=== PATIENT | female | born 1945 | race Caucasian/White ===

== ENCOUNTER 2020-02-06 16:49 | Emergency (ER) | payer MEDICARE, SELFPAY ==
--- NOTE | ~2020-02-06 | XR_ITS ---
XR ankle LT 2V, XR foot LT 2V 02/06/2020 17:46 Indication: Left foot and ankle pain after injury Procedure: 2 views left ankle and 2 views left foot Comparison: No prior studies for comparison. Findings: There is a transverse distal metaphyseal fracture of the tibia with mild dorsal-medial disp lacement and dorsal angulation. There is a distal fibular metaphyseal fracture. Generalized osteopeni a. Talar dome is normal. There is an age-indeterminate fracture of the fourth metatarsal neck. [place] joint intact. Impression: 1: Transverse mildly displaced and angulated fractures of the distal tibial and fibular metaphysis. 2: Nondisplaced age-indeterminate fracture left fourth metatarsal neck. Reviewed, dictated and finalized at location A. Impression: 1: Transverse mildly displaced and angulated fractures of the distal tibial and fibular metaphysis. 2: Nondisplaced age-indeterminate fracture left fourth metatarsal neck. Impression: 1: Transverse mildly displaced and angulated fractures of the distal tibial and fibular metaphysis. 2: Nondisplaced age-indeterminate fracture left fourth metatarsal neck.
[2020-02-06 17:10] VITALS: BP 138/82; PULSE 100; RESP 20; TEMP 36.8; O2SAT 99
[2020-02-06] MEDS: KETOROLAC (*BKC) 60 MG/2 ML VIAL IM (17:31)
--- NOTE | 2020-02-06 18:01 | ED.LOWEXIN ---
HPI - Extremity Injury (Lower) General Chief Complaint: Extremity Injury, Lower Stated Complaint: hurt L foot Source: patient and family Mode of arrival: wheelchair Limitations: no limitations History of Present Illness HPI Narrative: this is a 74-year-old female presents with some left foot and ankle injury that occurred approximately 3 months ago she was visiting family in [place], has been persistently in pain rates her pain about a 7/10 has reduced range of motion in her left lower leg ankle and foot with swelling and point tenderness in the lateral left malleolus and anterior left foot with some palpation and some mild swelling. Injury: Left: ankle ( Swelling and injury) and foot ( swelling and injury) Type of Injury: inversion Place: home Severity: moderate Exacerbating factors: weight bearing Context: fall Other symptoms: none Related Data Home Medications Medication Instructions Recorded Confirmed gabapentin 100 mg PO TID 02/06/20 02/06/20 hydrocodone-acetaminophen 1 tablet PO TID PRN 02/06/20 02/06/20 levothyroxine 75 mcg PO DAILY 02/06/20 02/06/20 tramadol 50 mg PO QID PRN 02/06/20 02/06/20 Allergies Allergy/AdvReac Type Severity Reaction Status Date / Time codeine Allergy Mild THROAT Unverified 07/02/19 14:17 CLOSES Sulfa (Sulfonamide Allergy Mild Unverified 07/02/19 14:17 Antibiotics) Review of Systems Review of Systems: All systems reviewed & are unremarkable except as noted in HPI and below PMFSH Past Medical History Medical History Anxiety COPD (chronic obstructive pulmonary disease) Depression Exam Const: General: no acute distress and alert Orientation/consciousness: patient oriented x3 HENMT: Head: normal to inspection Eyes: Conjunctivae: conjunctivae normal Pupils: Equal, round and reactive pupils present Neck: Neck: normal visual inspection, no lymphadenopathy and no meningeal signs Chest: Chest palpation & inspection: normal inspection of the chest Resp: Effort & Inspection: normal respiratory effort Cardio: Rate: regular rate Rhythm: regular rhythm GI: GI Palp: Yes Soft to palpation Back/Spine/Pelvis: Back: no CVA tenderness Skin: General skin exam: normal color Rashes: no rashes Neuro: General: patient oriented x3, moves all extremities and no meningeal signs Extrem: Other: Pain in the left lateral malleolus and anterior foot with some swelling decreased range of motion secondary to pain inflammation. Psych: Appearance: disheveled Mental Status: mental status grossly normal Course Course Emergency Course: Patient received 60 of Toradol and pain had improved, and x-ray showed the fractures identified on x-ray and advised patient and her daughter to establish with local primary care physician for referral to orthopedic doctors. Critical Care Time Critical Care Time Critical Care Time: No Discharge Plan Discharge Clinical Impression: Ankle fracture, left Qualifiers: Encounter type: initial encounter Fracture type: closed Qualified Code(s): S82.892A - Other fracture of left lower leg, initial encounter for closed fracture Foot fracture, left Qualifiers: Encounter type: initial encounter Fracture type: closed Qualified Code(s): S92.902A - Unspecified fracture of left foot, initial encounter for closed fracture Patient Disposition: Home, Self-Care Condition: Stable Instructions: Antibiotic Form, Foot Fracture in Adults (ED), Ankle Fracture (ED) Additional Instructions: take her prescribed pain medication as needed, follow-up with primary care physician for referral to orthopedics for further evaluation and treatment. Prescriptions: No Action hydrocodone-acetaminophen 10-325 mg tablet 1 tablet PO TID PRN (Reason: Pain) RF: 0 tramadol 50 mg tablet 50 mg PO QID PRN (Reason: Pain) RF: 0 levothyroxine 75 mcg tablet 75 mcg PO DAILY RF: 0 gabapentin 100 mg capsule
[2020-02-06 18:20] VITALS: RESP 17
== END 2020-02-06 18:20 | disposition home or self-care (01) ==
PROVIDERS: Emergency Provider Emergency Medicine
DX: S82.892A Other fracture of left lower leg, initial encounter for closed fracture (principal); S92.902A Unspecified fracture of left foot, initial encounter for closed fracture
CPT/HCPCS: 73600; 73620; 96372; 99282; 99284; J1885; L2112

== ENCOUNTER 2020-05-27 14:48 | Outpatient (CLI) | payer MEDICARE, SELFPAY ==
[2020-05-27 15:19] LABS: Hematocrit 34.9 % (35.0-42.0); Hemoglobin 11.5 g/dL (11.7-13.8); Mean Corpuscular Hemoglobin 34.3 pg (27.0-31.0); Mean Corpuscular Volume 104.2 fL (78.0-102.0); Mean Platelet Volume 8.8 fl (9.2-11.8); Platelet Count Result 484 K/mm3 (150-420); Red Blood Count 3.35 M/mm3 (4.20-5.40); Red Cell Distribution Width 12.2 % (11.6-14.4); White Blood Count 10.4 K/mm3 (4.8-10.8)
[2020-05-27 16:30] LABS: Alanine Aminotransferase 15 U/L (14-59); Albumin Level 3.7 g/dL (3.4-5.0); Alkaline Phosphatase 98 U/L (46-116); Anion Gap 10 mmol/L (8-16); Aspartate Amino Transferase 14 U/L (15-37); Bilirubin,Total 0.3 mg/dL (0.00-1.00); Blood Urea Nitrogen 10 mg/dL (7-18); Calcium 9.4 mg/dL (8.5-10.1); Carbon Dioxide 27 mmol/L (21-32); Chloride 99 mmol/L (98-108); Estimated Glomerular Filt Rate > 60; Glucose 86 mg/dL (70-99); Osmolality Calculated 280 mOsm/kg (285-295); Potassium 4.1 mmol/L (3.5-5.1); Sodium 136 mmol/L (136-145); Total Protein 7.9 g/dL (6.4-8.2)
[2020-05-27 16:31] LABS: Thyroid Stimulating Hormone Reflex 0.07 u/IU/mL (0.36-3.74)
[2020-05-27 16:32] LABS: Free T4 Free Thyroxine Reflex 1.43 ng/dL (0.76-1.46)
[2020-05-30 19:13] LABS: H pylori, Urea Breath NOT DETECTED (NOT DETECTED)
== END 2020-05-27 14:49 | disposition home or self-care (01) ==
LOC: CHSLAB 14:50
PROVIDERS: PCP Family Medicine; Visit Provider Family Medicine
DX: J44.9 Chronic obstructive pulmonary disease, unspecified (principal); F41.9 Anxiety disorder, unspecified; B35.1 Tinea unguium; K21.9 Gastro-esophageal reflux disease without esophagitis
CPT/HCPCS: 36415; 80053; 83013; 84439; 84443; 85027

== ENCOUNTER 2020-07-18 16:09 | Outpatient (CLI) | payer MEDICARE, SELFPAY ==
[2020-07-18 17:07] LABS: Alanine Aminotransferase 13 U/L (14-59); Albumin Level 4.2 g/dL (3.4-5.0); Alkaline Phosphatase 87 U/L (46-116); Anion Gap 9 mmol/L (8-16); Aspartate Amino Transferase 16 U/L (15-37); Bilirubin,Total 0.4 mg/dL (0.00-1.00); Blood Urea Nitrogen 8 mg/dL (7-18); Calcium 9.9 mg/dL (8.5-10.1); Carbon Dioxide 28 mmol/L (21-32); Chloride 96 mmol/L (98-108); Estimated Glomerular Filt Rate > 60; Glucose 90 mg/dL (70-99); Osmolality Calculated 274 mOsm/kg (285-295); Potassium 4.9 mmol/L (3.5-5.1); Sodium 133 mmol/L (136-145); Total Protein 8.2 g/dL (6.4-8.2)
== END 2020-07-18 16:10 | disposition home or self-care (01) ==
LOC: CHSLAB 16:11
PROVIDERS: PCP Family Medicine; Visit Provider Family Medicine
DX: B35.1 Tinea unguium (principal)
CPT/HCPCS: 36415; 80053

== ENCOUNTER 2020-08-17 13:42 | Outpatient (CLI) | payer MEDICARE, SELFPAY ==
--- NOTE | ~2020-08-17 | XR_ITS ---
EXAMINATION: XR hip RT min 2V DATE: 08/17/2020 14:31 INDICATION: Right hip pain. TECHNIQUE: 2 views of right hip were obtained. COMPARISON: Pelvis radiographs 08/24/2011 FINDINGS: Bone alignment is normal. No fracture. There is mild right hip osteoarthritis. There is sev ere lumbar spondylosis. IMPRESSION: 1. Mild right hip osteoarthritis. Reviewed, dictated and finalized at location B. ATOR CLEANER
--- NOTE | ~2020-08-17 | XR_ITS ---
EXAMINATION: XR lumbar spine 2-3V DATE: 08/17/2020 14:31 INDICATION: Scoliosis, back pain TECHNIQUE: Anteroposterior and lateral views of the lumbar spine, and cone-down lateral view of the l umbosacral junction were obtained. COMPARISON: 07/08/2013 FINDINGS: There is unchanged thoracolumbar levoscoliosis. Bone alignment appears normal. There is com plete loss of intervertebral disc space height at L2-3 and L3-4 and severe loss of intervertebral dis c space height throughout the remainder of the lumbar spine. There is mild asymmetric loss of vertebr al body height on the right at L2-3 and L3-4. No fracture is identified. The bones are osteopenic. Th ere is calcified atherosclerosis of the aorta and many of the other arteries. Orthopedic hardware is present in the proximal left femur. IMPRESSION: 1. Thoracolumbar levoscoliosis and severe lumbar spondylosis without acute findings or significant in terval change. Reviewed, dictated and finalized at location A. OP JAVA DEVELOPER IMPRESSION: 1. Thoracolumbar levoscoliosis and severe lumbar spondylosis without acute find ings or significant interval change.
--- NOTE | ~2020-08-17 | XR_ITS ---
EXAMINATION: XR thoracic spine 3V DATE: 08/17/2020 14:30 INDICATION: Scoliosis and back pain TECHNIQUE: AP, lateral and lateral swimmer's views of the thoracic spine were obtained. COMPARISON: None. FINDINGS: There are 65 degrees of thoracolumbar levoscoliosis. The thoracic vertebral body heights ar e maintained. There is loss of intervertebral disc space height in the lower thoracic spine. No fract ure is identified. Small degenerative osteophytes project from the anterior endplates of multiple ramesh tebral bodies. There is calcified atherosclerosis. Severe cervical spondylosis is noted. The lungs ar e free of acute opacities. The cardiomediastinal silhouette is normal. IMPRESSION: 1. Thoracolumbar levoscoliosis and mild thoracic spondylosis without acute findings. Reviewed, dictated and finalized at location A. CAL PRACTICE ADMINISTRATOR IMPRESSION: 1. Thoracolumbar levoscoliosis and mild thoracic spondylosis without acute find ings.
== END 2020-08-17 13:43 | disposition home or self-care (01) ==
LOC: CHSIMG 13:46
PROVIDERS: PCP Family Medicine; Visit Provider Nurse Practitioner Adult Health
DX: M25.551 Pain in right hip (principal); M41.86 Other forms of scoliosis, lumbar region
CPT/HCPCS: 72072; 72100; 73502

== ENCOUNTER 2021-12-02 15:59 | Emergency (ER) | payer MEDICARE, MEDICAID, SELFPAY ==
[2021-12-02] VITALS (7 sets, daily range): BP systolic 102–132; BP diastolic 77–94; PULSE 95–120; RESP 18–20; TEMP 36.3–36.7; O2SAT 94–100
--- NOTE | ~2021-12-02 | CT_ITS ---
EXAMINATION: CT chest abdomen pelvis wo con DATE: 12/02/2021 18:12 INDICATION: Suspected GI bleeding, coffee-ground emesis TECHNIQUE: Computed tomography (CT) of the chest abdomen and pelvis was performed without intravenous contrast. Automated exposure control and iterative reconstruction technique were employed. The dose- length product was 220.62 mGy-cm. COMPARISON: None FINDINGS: Chest: Thoracic aorta: Mild ectasia. Severe atherosclerotic calcification. Lung parenchyma and airways: Apical pleural scarring. Emphysematous change. Ill-defined groundglass a nd linear opacities in the anterior left upper lobe. Thoracic inlet, axillae and chest wall: Unremarkable. Mediastinum: Large hiatal hernia. Heart and pericardium: Unremarkable. Coronary artery calcifications: Heavy. Pleura: No mass or fluid. Abdomen and pelvis: Liver: Normal. Biliary/Gallbladder: Gallbladder is absent. No bile duct dilation. Spleen: Splenic atrophy. Pancreas: No mass or duct dilation. Mild atrophy. Adrenals:No mass. Kidneys: No mass, stone, or hydronephrosis. GI tract: NG tube tip and side port terminating in the stomach. No small or large bowel dilation. Shonda endix not visualized. Mesentery/Peritoneum: No ascites, mass, or free air. Retroperitoneum: No mass. Extensive severe abdominal arterial atherosclerosis. 3.2 cm saccular infrar enal abdominal aortic aneurysm. Pelvis: Uterus is absent or atrophic. Normal bladder.. Soft Tissues: Soft tissues and body wall unremarkable. Bones: Severe osteopenia. Severe thoracolumbar scoliosis. Uncomplicated appearing partially visualiz ed left proximal femoral fixation hardware. IMPRESSION: Ill-defined infectious/inflammatory changes in the right upper lobe. No other acute process detected in the chest, abdomen, or pelvis. Numerous chronic findings are detailed above. Reviewed, dictated and finalized at location K. IMPRESSION: Ill-defined infectious/inflammatory changes in the right upper lobe. No other a cute process detected in the chest, abdomen, or pelvis. Numerous chronic findin gs are detailed above.
--- NOTE | 2021-12-02 16:18 | ED.ABDPAIN ---
HPI - Abdominal Pain General Chief Complaint: Abdominal Pain Stated Complaint: vomiting, pain hips/legs Time Seen by Provider: 12/02/21 16:19 Source: patient, family and EMS Mode of arrival: EMS Limitations: no limitations, physical limitation and clinical condition History of Present Illness HPI narrative: this is a 76-year-old female that presents via AMS with some increased weakness and lower extremity pain that she is having bilateral hip pain uses a walker to ambulate, but has been having increased weakness over the last 2 to 3 days. The patient has been having nausea vomiting and according to patient and family, family states that there has been some dark coffee-ground looking emesis, and EMS mentioned that they they saw some coffee-ground emesis as well. The patient denies having any chest pain or shortness of breath, patient has a history of peptic ulcer disease with history of a GI bleed in the past currently has a peripheral neuropathy and having lower extremity pain that she currently takes gabapentin for neuropathy. Family states that there has been increasing weakness over the last 2 to 3 days, with no chest pain no shortness of breath no fever chills no diarrhea constipation. MD elicited complaint: abdominal pain and flank pain Pertinent past history: gastrointestinal bleeding Onset (ago): day(s) Pain Consistency: constant Location: epigastric Severity: moderate Quality: aching Radiation: epigastric Exacerbating factors: vomiting Relieving factors: nothing Associated symptoms: nausea and vomiting Treatments prior to arrival: prescription analgesics Related Data Home Medications Medication Instructions Recorded Confirmed hydrocodone 10 mg-acetaminophen 1 tablet PO Q8H PRN 03/30/20 03/30/20 325 mg tablet gabapentin 100 mg PO QID 12/02/21 12/02/21 Allergies Allergy/AdvReac Type Severity Reaction Status Date / Time codeine Allergy Mild THROAT Verified 07/18/20 12:16 CLOSES Sulfa (Sulfonamide Allergy Unknown Unknown Verified 07/18/20 12:16 Antibiotics) Review of Systems Review of Systems: All systems reviewed & are unremarkable except as noted in HPI and below PMFSH Past Medical History Medical History Anxiety COPD (chronic obstructive pulmonary disease) GERD (gastroesophageal reflux disease) Hypothyroidism Onychomycosis Osteoporosis Urge incontinence Surgical History Surgical History History of cholecystectomy History of hysterectomy History of ovarian resection Hx of tonsillectomy Social History Social History Smoking packs per day: 0.5 Smoking cigarettes per day: 10.0 Years smoked: 60 Smoking pack-years: 30.00 Smoking status: Current every day smoker Tobacco type: cigarettes Exam Const: General: no acute distress, alert and ill appearing Orientation/consciousness: patient oriented x3 HENMT: Head: normal to inspection Eyes: Conjunctivae: conjunctivae normal Pupils: Equal, round and reactive pupils present Neck: Neck: normal visual inspection, no lymphadenopathy and no meningeal signs Chest: Chest palpation & inspection: normal inspection of the chest Resp: Effort & Inspection: normal respiratory effort Auscultation: diminished lung sounds Cardio: Rate: regular rate Rhythm: regular rhythm GI: GI Palp: Yes Soft to palpation and Yes Tenderness to palpation present (GI) ( Epigastric area) : General: Yes no CVA tenderness Urinary Catheter: Urinary Catheter: patent and draining Back/Spine/Pelvis: Back: no CVA tenderness Skin: General skin exam: normal color Rashes: no rashes Neuro: General: patient oriented x3, moves all extremities, no meningeal signs and no focal motor deficits Extrem: General: normal to inspection and no pedal edema Psych: Mental Status: mental status grossly
[2021-12-02] MEDS: ONDANSETRON INJ 4 MG/2 ML VIAL IV PUSH (16:48)
[2021-12-02] MEDS: MORPHINE SULFATE (*CRX) 2 MG/ML INJ IV PUSH ×2 (16:48→22:57)
[2021-12-02] MEDS: SODIUM CHLORIDE 0.9% IV 1,000 ML 999 ML IV CONT ×2 (16:50→17:36)
--- NOTE | 2021-12-02 17:01 | PC.NURSE ---
pt declined need for urination at this time,
[2021-12-02 17:02] LABS: Hematocrit 32.7 % (35.0-42.0); Hemoglobin 10.6 g/dL (11.7-13.8); Mean Corpuscular HGB Conc 32.4 g/dL (32.0-36.0); Mean Corpuscular Hemoglobin 33.5 pg (27.0-31.0); Mean Corpuscular Volume 103.5 fL (78.0-102.0); Mean Platelet Volume 9.5 fl (9.2-11.8); Platelet Count Result 456 K/mm3 (150-420); Red Blood Count 3.16 M/mm3 (4.20-5.40); Red Cell Distribution Width 12.8 % (11.6-14.4)
[2021-12-02 17:16] LABS: CRP 10.3 mg/dL (0.0-0.9)
[2021-12-02 17:18] LABS: Alanine Aminotransferase 17 U/L (14-59); Albumin Level 2.6 g/dL (3.4-5.0); Alkaline Phosphatase 102 U/L (46-116); Anion Gap 19 mmol/L (8-16); Aspartate Amino Transferase 30 U/L (15-37); Bilirubin,Total 0.3 mg/dL (0.00-1.00); Blood Urea Nitrogen 48 mg/dL (7-18); Calcium 9.2 mg/dL (8.5-10.1); Carbon Dioxide 23 mmol/L (21-32); Chloride 92 mmol/L (98-108); Estimated Glomerular Filt Rate 21; Glucose 159 mg/dL (70-99); INR 1.5; Lipase 49 U/L (73-393); Magnesium 1.7 mg/dL (1.8-2.4); Osmolality Calculated 293 mOsm/kg (285-295); Partial Thromboplastin Time 28.5 SEC (23.90-30.70); Prothrombin Time 15.5 Seconds (9.50-12.10); Sodium 134 mmol/L (136-145); Total Protein 7.4 g/dL (6.4-8.2)
--- NOTE | 2021-12-02 17:18 | ECG_ITS ---
Measurements Intervals [place] Rate: 117 P: 120 [place]: 135 QRS: 109 QRSD: 78 T: 118 QT: 307 QTc: 429 Interpretive Statements SINUS OR ECTOPIC ATRIAL TACHYCARDIA FREQUENT ATRIAL PREMATURE COMPLEXES RIGHT AXIS DEVIATION BORDERLINE ST-T WAVE ABNORMALITY- INFERIOR LEADS BASELINE ARTIFACT- I, II, III, AVR, AVL, AVF, V1-V6 ABNORMAL ECG Electronically Signed On 12-02-2021 19:48:08 CDT by Fitz Stone D.O.
[2021-12-02 17:24] LABS: Lactic Acid Reflex 9.7 mmol/L (0.4-2.0)
[2021-12-02 17:26] LABS: Ammonia < 10 umol/L (11-32)
[2021-12-02] MEDS: PANTOPRAZOLE SODIUM IV 40 MG VIAL 80 MG IV PUSH (17:34)
[2021-12-02 17:39] LABS: White Blood Count 22.9 K/mm3 (4.8-10.8)
[2021-12-02 17:40] LABS: Band Neutrophils Percent 3 % (0-6); Basophils Percent Manual 0 % (0-1); Eosinophils Percent Manual 0 % (1-6); Lymphocytes Absolute Manual 2.97 K/mm3 (1.1-4.5); Lymphocytes Percent Manual 13 % (18-44); Metamyelocytes Percent 1 %; Monocytes Percent Manual 7 % (3-9); Neutrophils Absolute Manual 18.09 K/mm3 (1.7-7.2); Neutrophils Percent Manual 76 % (46-73); Total Cells Counted 100
[2021-12-02 17:41] LABS: Platelet Clumps Present; Platelet Estimate Adequate (Adequate)
[2021-12-02 17:42] LABS: SARS-CoV-2 Ag Negative (Negative)
--- NOTE | 2021-12-02 18:59 | PC.NURSE ---
report to CHRIS Francis. no questions or concerns, pt resting with family at bedside, call abbott in reach.
[2021-12-02 19:23] LABS: Gastric Negative Control Negative; Gastric Positive Control Positive; Occult Blood Gastric Fluid Positive; pH Gastric Fluid 3 (1-8)
--- NOTE | 2021-12-02 19:45 | PC.NURSE ---
Dr. Krishnamurthy spoke to Gwyn PETERSON, Dr. Monroe, for a possible admission. Gwyn turnerchar house supervisor called and stated the Dr. Monroe accepted the pt and waiting to talk to the hospitalist for final acceptance and bed number. Gwyn char house supervisor states the hospitalist would be calling [facility] staff for report.
[2021-12-02 19:53] LABS: Reflex Lactic Acid Yes or No Add Lactic
== END 2021-12-02 23:18 | disposition short-term general hospital (02) ==
PROVIDERS: Emergency Provider Emergency Medicine; PCP Family Medicine
DX: K92.2 Gastrointestinal hemorrhage, unspecified (principal); Z20.822 Contact with and (suspected) exposure to COVID-19; J44.9 Chronic obstructive pulmonary disease, unspecified; K21.9 Gastro-esophageal reflux disease without esophagitis; E03.9 Hypothyroidism, unspecified; M81.0 Age-related osteoporosis without current pathological fracture; F17.200 Nicotine dependence, unspecified, uncomplicated
CPT/HCPCS: 36415; 71250; 74176; 80053; 82140; 82271; 83605; 83690; 83735; 83986; 85025; 85610; 85730; 86140; 86850; 86900; 86901; 87040; 87426; 93005; 96361; 96365; 96375; 99285; C9113; C9803; J2270; J2405; J2543; J7030

== ENCOUNTER 2021-12-02 23:47 | Inpatient (IN) | payer MEDICARE, MEDICAID, SELFPAY ==
--- NOTE | ~2021-12-02 | CT_ITS ---
EXAMINATION: CTA LE RT DATE: 12/03/2021 04:28 INDICATION: Discoloration of the right lower extremity TECHNIQUE: Computed tomographic angiography (CTA) of right lower extremity was performed with 87 mL O mnipaque-300 intravenous contrast. The dose-length product (DLP) was 372.63 mGy-cm. Maximum intensity projection 3D-reconstructions of the arteries were created by the technologist on a separate worksta tion. Automated exposure control and iterative reconstruction technique were employed. COMPARISON: None. FINDINGS: There is calcified atherosclerosis with moderate stenosis of the bilateral common iliac art eries. There is severe stenosis with multifocal areas of occlusion in the internal iliac arteries. Th e right superficial femoral artery is occluded throughout much of its course with a few short segment s of flow and distal reconstitution near the knee. There is calcified atherosclerosis and severe sten osis of the popliteal artery. There is severe stenosis of the tibioperoneal trunk. There is severe st enosis of the anterior and posterior tibial arteries and peroneal artery with very few short segments of reconstituted flow. There is wall thickening of the urinary bladder. No pathologically enlarged pelvic lymph nodes are id entified. IMPRESSION: 1. 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 Vascular surgical evaluation is recommended. Reviewed, dictated and finalized at location A. IMPRESSION: 1. Severe vascular disease of the left lower extremity with very little flow de tectable by CT, particularly beyond the knee. Vascular surgical evaluation is r ecommended.
--- NOTE | ~2021-12-02 | US_ITS ---
EXAMINATION: US arterial ankle brachial ind DATE: 12/06/2021 11:59 INDICATION: Painful right lower extremity TECHNIQUE: Segmental pressures and plethysmographic and Doppler waveforms of the brachial and lower e xtremity arteries were obtained. COMPARISON: 12/03/2021 CTA lower extremity FINDINGS: Right and left brachial artery pressures of 148 mm Hg and 109 mm Hg, respectively, are discordant. Le ft subclavian, axillary or brachial artery stenosis or occlusion is suspected. The right ankle-brachial index (JORGE L) is 0.18 (normal >= 0.9-1.0). The right great toe-brachial index (TBI) is 0.10 (normal >= 0.65). Arterial Doppler waveforms abnormal low amplitude.. The left JORGE L is 0.50. The left TBI is 0.22. Arterial Doppler waveforms show amplitude monophasic. IMPRESSION: Discordant subclavian artery pressures suggesting left subclavian, axillary or brachial artery stenosis or occlusion Abnormally low JORGE L of 0.18 on the right, 0.50 on the left Abnormally low TBI of 0.10 on the right, 0.22 on the left Reviewed, dictated and finalized at Location A. Reviewed, dictated and finalized at location B.
--- NOTE | ~2021-12-02 | XR_ITS ---
EXAMINATION: XR chest 1V portable Exam Date/Time: 12/05/2021 16:20 CDT CLINICAL HISTORY: pneumonia Comparison: 07/08/2013. RESULT: Lines, tubes, and devices: None. Lungs and pleura: Senescent changes. Cardiomediastinal silhouette: Stable cardiomediastinal silhouette. Other: No acute osseous or upper abdominal finding. Severe osteopenia and thoracolumbar scoliosis. IMPRESSION: No acute cardiopulmonary process Reviewed, dictated and finalized at location K.
[2021-12-03] VITALS (12 sets, daily range): BP systolic 65–125; BP diastolic 42–87; PULSE 55–102; RESP 14–23; TEMP 36.5–37.5; O2SAT 93–100; BMI 19.0
--- NOTE | 2021-12-03 00:12 | ADMGEN ---
This patient, Hanna Rai, was admitted to 2 Medical Room 26001 @[id number]. Patient/family oriented to hospital policies and general routines including ID bracelet, bed and alarms, visiting hours, pain management, procedures, bathroom and other care routines, personal items, smoking policy, room service/diet, and visiting hours. Information on how to activate the Rapid Response Team has been discussed. Patient/Family are encouraged to report perceived risks to care and to ask questions if they do not understand what they are told or what they should do.
--- NOTE | 2021-12-03 00:25 | PM.IMHP ---
H&P: HPI History of Present Illness Date/Time: 12/03/21 00:25 Chief Complaint: Coffee-ground emesis Narrative: This is a 76-year-old female with past medical history significant for COPD/emphysema, hypothyroidism, gastroesophageal reflux disease. Patient comes transferred from outside hospital due to episode of coffee-ground emesis. According to medical records patient was brought for evaluation due to altered mental status, nausea, vomiting, diarrhea, coffee-ground emesis. Preliminary workup was significant for positive occult blood. Creatinine 2.2 BUN 48. The time of my visit patient was unable to give much history. Patient is being admitted for further evaluation management and treatment. Review of Systems Review of Systems: ROS unobtainable: Yes unobtainable due to mental status (Delirious) PMFSH Past Medical History Medical History Anxiety COPD (chronic obstructive pulmonary disease) GERD (gastroesophageal reflux disease) Hypothyroidism Onychomycosis Osteoporosis Urge incontinence Surgical History Surgical History History of cholecystectomy History of hysterectomy History of ovarian resection Hx of tonsillectomy Family History Family History (Updated 12/03/21 @ 00:17 by Augusta Rubalcava RN) Father Skin cancer Father Lung cancer Social History Social History Smoking packs per day: 0.5 Smoking cigarettes per day: 10.0 Years smoked: 12 Smoking pack-years: 6.00 Smoking status: Current every day smoker Tobacco type: cigarettes Alcohol intake: never Substance use: never Substance use type: does not use Spiritual care concerns: No Meds Home Medications and Allergies Home Medications Medication Instructions Recorded Confirmed Type omeprazole 40 mg capsule,delayed 40 mg PO DAILY #90 cap 09/09/20 12/03/21 Rx release gabapentin 100 mg PO QID 12/02/21 12/03/21 History levothyroxine 50 mcg PO DAILY 12/03/21 12/03/21 History lorazepam 0.5 mg PO TID PRN 12/03/21 12/03/21 History naloxegol [Movantik] 25 mg PO DAILY 12/03/21 12/03/21 History oxybutynin chloride 15 mg PO DAILY 12/03/21 12/03/21 History simvastatin 40 mg PO DAILY 12/03/21 12/03/21 History umeclidinium [Incruse Ellipta] 62.5 mcg INHALATION DAILY 12/03/21 12/03/21 History Allergies Allergy/AdvReac Type Severity Reaction Status Date / Time codeine Allergy Mild THROAT Verified 07/18/20 12:16 CLOSES Sulfa (Sulfonamide Allergy Unknown Unknown Verified 07/18/20 12:16 Antibiotics) Vital Signs Vital Signs - 24 hr 12/03/21 00:15 Temperature 99.4 F Pulse Rate 102 H Respiratory Rate 18 Blood Pressure 125/87 Pulse Oximetry 99 Exam Narrative: Laying in bed Const: General: comfortable, no acute distress, well developed, alert, awake and ill appearing chronically Nutritional Appearance: underweight Orientation/consciousness: oriented to person and Other orientation findings (Delirious) HENMT: Head: normocephalic, atraumatic and other (Bitemporal muscle wasting) Ears: hearing grossly normal bilaterally General nose exam: Normal external nose present Face and sinus: normal facial exam Mouth: Yes dry mucous membranes Eyes: General: appearance normal, both eyes and all related structures Alignment and Position: alignment normal Sclera: sclerae normal Pupils: Equal, round and reactive pupils present EOM: EOMs intact bilaterally Neck: Neck: normal visual inspection, full ROM, no lymphadenopathy, supple and no JVD Thyroid: thyroid normal Lymphatic: no lymphadenopathy noted Resp: Effort & Inspection: normal respiratory effort and able to speak in complete sentences Auscultation: clear to auscultation bilaterally, no crackles, no rales, no rhonchi and no wheezes Cardio: Jugular venous distension: no JVD Rate: regular rate Rhythm: regu
[2021-12-03] MEDS: DEXTROSE 5%/0.45% SOD CHL 1,000 ML 65 ML IV CONT ×2 (01:13→16:49)
[2021-12-03 02:21] LABS: Basophils Percent Auto 0.2 % (0.2-1.2); Hematocrit 28.8 % (37.0-47.0); Hemoglobin 9.8 g/dL (12.0-15.0); Immature Granulocyte Absolute 0.08 K/mm3 (0.00-0.031); Immature Granulocyte Percent A 0.4 % (0-0.5); Lymphocytes Absolute Auto 1.72 K/mm3 (0.9-3.2); Lymphocytes Percent Auto 9.3 % (18.3-44.2); Mean Corpuscular Hemoglobin 34.1 pg (26-34); Mean Corpuscular Volume 100.3 fl (80-100); Mean Platelet Volume 9.1 fl (7.4-10.4); Monocytes Absolute Auto 1.8 K/mm3 (0.1-0.6); Monocytes Percent Auto 9.9 % (2.6-8.5); Neutrophils Absolute Auto 14.9 K/mm3 (1.3-6.7); Neutrophils Percent Auto 80.2 % (45.5-73.1); Platelet Count Result 365 k/mm3 (150-375); Red Blood Count 2.87 M/mm3 (4.2-5.4); Red Cell Distribution Width 12.9 % (11.5-14.5); White Blood Count 18.6 K/mm3 (4.5-10.0)
[2021-12-03 02:30] LABS: Anion Gap 7 mmol/L (8-16); Blood Urea Nitrogen 43 mg/dL (7-17); Calcium 7.9 mg/dL (8.4-10.2); Carbon Dioxide 29 mmol/L (22-30); Chloride 99 mmol/L (98-107); Estimated Glomerular Filt Rate 44; Glucose 111 mg/dL (65-110); Lactic Acid Reflex 1.5 mmol/L (0.7-2.0); Magnesium 1.6 mg/dL (1.6-2.3); Phosphorus 4.1 mg/dL (2.5-4.5); Potassium 3.5 mmol/L (3.4-5.0); Sodium 135 mmol/L (137-145)
[2021-12-03] MEDS: methylPREDNISolone SOD SUCC 125 MG VIAL IV PUSH (03:53)
[2021-12-03] MEDS: MAGNESIUM SULF 2 GM/WATER 50ML 2 GM/50 ML BAG IVPB (05:51)
--- NOTE | 2021-12-03 09:32 | PM.IMPN ---
Progress Note: A&P Assessment and Plan (1) Coffee ground emesis: Code(s): K92.0 - Hematemesis Status: Acute Assessment and Plan: Associated with acute blood loss anemia NPO PPI drip GI consult Monitor H&H transfuse if hemoglobin below 7 (2) Altered mental status: Code(s): R41.82 - Altered mental status, unspecified Status: Acute Assessment and Plan: Most likely related to acute metabolic encephalopathy resolved secondary to GI bleed dehydration and acute renal failure Continue to monitor Supportive care (3) GERD (gastroesophageal reflux disease): Code(s): K21.9 - Gastro-esophageal reflux disease without esophagitis Status: Acute Assessment and Plan: Currently on PPI drip (4) Extremity cyanosis: Code(s): R23.0 - Cyanosis Status: Acute Assessment and Plan: CT angiogram of right lower extremity resolved most likely worsening of severe peripheral vascular disease worsened by GI bleed Monitor closely neurovascular check follow-up with PCP and vascular surgeon as outpatient (5) STACEY (acute kidney injury): Code(s): N17.9 - Acute kidney failure, unspecified Status: Acute Assessment and Plan: Likely to be pre renal azotemia BUN and creatinine trending down Continue to monitor (6) COPD (chronic obstructive pulmonary disease): Code(s): J44.9 - Chronic obstructive pulmonary disease, unspecified Status: Acute Assessment and Plan: Patient is not actively wheezing Continue to monitor Continue home meds (7) Pneumonia: Code(s): J18.9 - Pneumonia, unspecified organism Status: Acute Assessment and Plan: Associated with leukocytosis present on admission give IV antibiotics Subjective Date/time seen: 12/03/21 09:32 Interval history: 76-year-old female with past medical history significant for COPD/emphysema, hypothyroidism, gastroesophageal reflux disease. Patient comes transferred from outside hospital due to episode of coffee-ground emesis. According to medical records patient was brought for evaluation due to altered mental status, nausea, vomiting, diarrhea, coffee-ground emesis. Patient has history of peptic ulcer disease and GI bleed in the past. Patient was found to have acute blood loss anemia secondary to GI bleed associated with acute renal failure and acute metabolic encephalopathy treated with IV hydration Protonix drip GI was consulted Patient feels weak patient is alert oriented moves all extremities Patient denies fever headache chest pain shortness of breath I am seeing the patient for GI bleed Exam Narrative: Alert Chest no wheeze crackles Abdomen nontender nondistended CVS S1 + S2 Lower extremity edema Neuro nonfocal Objective Data Vital Signs Vital Signs: Vital Signs - 24 hr 12/03/21 00:15 12/03/21 04:34 Temperature 99.4 F 97.7 F Pulse Rate 102 H 95 Respiratory Rate 18 17 Blood Pressure 125/87 123/51 L Pulse Oximetry 99 93 Intake/Output Intake/Output: Intake & Output 11/30/21 12/01/21 12/02/21 12/03/21 23:59 23:59 23:59 23:59 Intake Total 50 Output Total 50 Balance 0 Meds/Results Medications: Active Medications Generic Name Dose Route Start Last Admin Trade Name Freq PRN Reason Stop Dose Admin Dextrose/Sodium Chloride 1,000 mls @ 65 mls/hr 12/03/21 00:20 12/03/21 01:13 Dextrose 5% Sodium Chloride 0.45% IV CONT 65 mls/hr .[id number] NEPTALI Administration Pantoprazole Sodium 80 mg/ 500 mls @ 50 mls/hr 12/03/21 00:30 12/03/21 01:13 Dextrose IV CONT 50 mls/hr .Q10H NEPTALI Administration Ondansetron HCl 4 mg 12/03/21 00:17 Ondansetron Inj 4 Mg/2 Ml Vial IV PUSH Q6H PRN Nausea And Vomiting Radiology Results: ITS Impressions Lower Extremity CTA 12/03/21 07:53 IMPRESSION: 1. Severe vascular disease of the left lower extremity with very little flow detectable by CT, particularly beyond the knee. Geena
--- NOTE | 2021-12-03 11:31 | WPDGICN ---
Assessment and Plan Additional Plan GI Consultation Dr. Monroe December 02, 2021 This is a 76 year old female patient with a history of COPD, hypothyroidism, GERD, Osteoporosis, CCx, Hysterectomy and Oophorectomy who now presents for evaluation of hematemesis. Patient is seen at the request of the Hospitalist service to evaluate for same. The patient?s primary care provider is Dr. Samantha Jackson. Patient presented to [facility] with mental status change, CG emesis and diarrhea. She is transferred here for care and is currently feeling better and her mental status is improved. Sh currently denies abdominal pain, nausea or vomiting, trouble swallowing, bloating, loss of appetite or weight, early satiety, heartburn, diarrhea or constipation, rectal bleeding or melena. Patient denies fever, jaundice, scleral icterus, dark urine, light stool, itching, hot or cold intolerance, chest pain, shortness of breath at rest, hematuria, dysuria, new cough or visual changes, easy bruising, tingling of the skin, bone pain or tremors. No history of endocarditis, rheumatic fever, dental prophylaxis, heart valve surgery, bleeding disorder or joint replacement. Allergies: Codeine, Sulfa. Medications: see list. Includes omeprazole. No aspirin, NSAIDS or anticoagulants. Social history: smoker, nondrinker. Family history: negative for GI malignancy. Never had colonoscopy. Physical exam: No lower extremity edema, jaundice, spider angioma, palmar erythema. Skull is normocephalic atraumatic. Sclera are non-icteric. Oropharynx is clear. Neck is supple without thyromegaly. Lungs are clear. Heart is rate and rhythm regular. S1 and S2 normal. Normal active bowel sounds. Non-tender, non-rigid, non-distended without hepatosplenomegaly or masses. No guarding. Rectal is deferred. Neuro is conscious and alert ?3. Labs: 12/03/2021 Hct 29, MCV 100, WBC 19, Mg 1.6, Cr 1.2 12/02/2021 Hct 33, MCV 104, WBC 23. Cr 2.2, Lipase 49. LFT, ammonia normal. CRP 10. Gastrocult positive. Imaging: CT A/P without IV negative for GI pathology Assessment and plan: A. Acute blood loss anemia with hematemesis: - UGI source; NG in now negative - OK to remove NG and start clears - DDx includes M-W tear, esophagitis, ulcer > varix, neoplasm, other - IV PPI - Avoid aspirin, NSAIDS and anticoagulants if possible - EGD in am B. GERD: PPI C. Macrocytosis: denies alcohol; check B12/folate D. Screening for colon cancer: consider for colonoscopy when stable, likely as OP The procedure of upper endoscopy, its indications, alternatives of barium studies and risks including perforation, bleeding, infection, reaction to medication as well as the possible need for blood or surgery were discussed with the patient. Patient voices understanding, agrees to proceed and provides informed consent. Thank you very much for allowing me to share in the care of your patient. Further recommendations per [facility]. Herb Monroe M.D. (c) [phone] Cc: Dr. Bentley Jackson; Dr. Hardy GI Consult Note Consult date/time: 12/03/21 11:31 HPI: Hanna Rai is a 76 year old female [facility] Past Medical History Medical History Anxiety COPD (chronic obstructive pulmonary disease) GERD (gastroesophageal reflux disease) Hypothyroidism Onychomycosis Osteoporosis Urge incontinence Surgical History Surgical History History of cholecystectomy History of hysterectomy History of ovarian resection Hx of tonsillectomy Family History Family History (Updated 12/03/21 @ 00:17 by Augusta Rubalcava RN) Father Skin cancer Father Lung cancer Social History Social History Smoking packs per day: 0.5 Smoking cigarettes per day: 10.0 Years smoked: 12 Smoking pack-years: 6.00 Smoking status: Current every day smoker Federico
[2021-12-03] MEDS: DOXYCYCLINE 100 MG/NS 100 ML 100 MG/100 ML BAG IVPB (11:45)
--- NOTE | 2021-12-03 13:49 | PC.NURSE ---
pt has soft bp this shift called to report to MD Figueredo, awaiting call back. currently 79/51 bp
--- NOTE | 2021-12-03 14:06 | PC.NURSE ---
MD Monroe aware of soft bp, bolus order per Gelacio Love, stat H&H per MD Monroe. Inquired about doing EGD today. will call and report H&H to MD Monroe and MD Figueredo.
[2021-12-03] MEDS: SODIUM CHLORIDE 0.9% IV 1,000 ML 999 ML IV CONT (14:18)
[2021-12-03 14:39] LABS: Basophils Percent Auto 0.1 % (0.2-1.2); Hematocrit 26.5 % (37.0-47.0); Hemoglobin 8.7 g/dL (12.0-15.0); Immature Granulocyte Absolute 0.06 K/mm3 (0.00-0.031); Immature Granulocyte Percent A 0.4 % (0-0.5); Lymphocytes Absolute Auto 0.88 K/mm3 (0.9-3.2); Lymphocytes Percent Auto 5.9 % (18.3-44.2); Mean Corpuscular HGB Conc 32.8 g/dl (32-36); Mean Corpuscular Hemoglobin 33.2 pg (26-34); Mean Corpuscular Volume 101.1 fl (80-100); Mean Platelet Volume 9.2 fl (7.4-10.4); Monocytes Absolute Auto 0.2 K/mm3 (0.1-0.6); Monocytes Percent Auto 1.5 % (2.6-8.5); Neutrophils Absolute Auto 13.7 K/mm3 (1.3-6.7); Neutrophils Percent Auto 92.1 % (45.5-73.1); Platelet Count Result 326 k/mm3 (150-375); Red Blood Count 2.62 M/mm3 (4.2-5.4); Red Cell Distribution Width 13.2 % (11.5-14.5); White Blood Count 14.9 K/mm3 (4.5-10.0)
--- NOTE | 2021-12-03 14:46 | PC.NURSE ---
manual bp 110/56 R arm
[2021-12-03 14:48] LABS: Lactic Acid Reflex 1.2 mmol/L (0.7-2.0)
[2021-12-03 14:52] LABS: Alanine Aminotransferase 19 U/L (6-35); Albumin Level 2.9 g/dL (3.5-5.1); Alkaline Phosphatase 73 U/L (38-126); Anion Gap 6 mmol/L (8-16); Aspartate Amino Transferase 70 U/L (14-36); Bilirubin,Total < 0.1 mg/dL (0.2-1.3); Blood Urea Nitrogen 24 mg/dL (7-17); Calcium 7.8 mg/dL (8.4-10.2); Carbon Dioxide 27 mmol/L (22-30); Chloride 98 mmol/L (98-107); Estimated Glomerular Filt Rate > 60; Glucose 164 mg/dL (65-110); Potassium 3.2 mmol/L (3.4-5.0); Sodium 131 mmol/L (137-145)
--- NOTE | 2021-12-03 15:01 | PC.NURSE ---
MD Monroe and MD Westbrook informed hemoglobin 5.9, per MD Westbrook transfuse 1 unit of blood recheck H&H and then infuse another.
[2021-12-03] MEDS: MIDODRINE HCL 10 MG TABLET PO (16:48)
[2021-12-03] MEDS: GABAPENTIN 100 MG CAPSULE PO (16:49)
--- NOTE | 2021-12-03 17:08 | PC.NURSE ---
report given to Gi lab nurse.
--- NOTE | 2021-12-03 18:25 | WPDANESEPPF ---
Anes - Initial Pre Proc Eval Procedure: EGD Date/Time: 12/03/21 18:25 Surgeon: Fer Pre Op Diagnosis: GI Bleed Patient Data Age: 76 Gender: F Height: 1.45 m Weight: 39.8 kg Last Vital Signs Temp 37.1 C 12/03/21 08:00 Pulse 86 12/03/21 08:00 Resp 14 12/03/21 08:00 BP 110/56 L 12/03/21 14:47 Pulse Ox 95 12/03/21 08:00 Allergies Allergy/AdvReac Type Severity Reaction Status Date / Time codeine Allergy Mild THROAT Verified 07/18/20 12:16 CLOSES Sulfa (Sulfonamide Allergy Unknown Unknown Verified 07/18/20 12:16 Antibiotics) Home Medications Medication Instructions Recorded Confirmed Type omeprazole 40 mg capsule,delayed 40 mg PO DAILY #90 cap 09/09/20 12/03/21 Rx release gabapentin 100 mg PO QID 12/02/21 12/03/21 History levothyroxine 50 mcg PO DAILY 12/03/21 12/03/21 History lorazepam 0.5 mg PO TID PRN 12/03/21 12/03/21 History naloxegol [Movantik] 25 mg PO DAILY 12/03/21 12/03/21 History oxybutynin chloride 15 mg PO DAILY 12/03/21 12/03/21 History simvastatin 40 mg PO DAILY 12/03/21 12/03/21 History umeclidinium [Incruse Ellipta] 62.5 mcg INHALATION DAILY 12/03/21 12/03/21 History Laboratory Tests 12/03/21 12/03/21 12/03/21 02:10 02:10 02:10 WBC 18.6 K/mm3 H K/mm3 (4.5-10.0) RBC 2.87 M/mm3 L M/mm3 (4.2-5.4) Hgb 9.8 g/dL L g/dL (12.0-15.0) Hct 28.8 % L % (37.0-47.0) MCV 100.3 fl H fl (80-100) MCH 34.1 pg H pg (26-34) MCHC 34.0 g/dl g/dl (32-36) RDW 12.9 % % (11.5-14.5) Plt Count 365 k/mm3 k/mm3 (150-375) MPV 9.1 fl fl (7.4-10.4) Immature Gran % (Auto) 0.4 % % (0-0.5) Neut % (Auto) 80.2 % H % (45.5-73.1) Lymph % (Auto) 9.3 % L % (18.3-44.2) Coffee % (Auto) 9.9 % H % (2.6-8.5) Eos % (Auto) 0.0 % % (0-4.4) Baso % (Auto) 0.2 % % (0.2-1.2) Lymph # (Auto) 1.72 K/mm3 K/mm3 (0.9-3.2) Coffee # (Auto) 1.8 K/mm3 H K/mm3 (0.1-0.6) Eos # (Auto) 0.0 K/mm3 K/mm3 (0-0.3) Baso # (Auto) 0.0 K/mm3 K/mm3 (0.0-0.1) Abs Immat Gran (auto) 0.08 K/mm3 H K/mm3 (0.00-0.031) Absolute Neuts (auto) 14.9 K/mm3 H K/mm3 (1.3-6.7) Absolute Nucleated RBC 0.0 K/mm3 K/mm3 (0.0-0.012) Nucleated RBC % 0.0 % % (0.0-0.2) Sodium 135 mmol/L L mmol/L (137-145) Potassium 3.5 mmol/L mmol/L (3.4-5.0) Chloride 99 mmol/L mmol/L (98-107) Carbon Dioxide 29 mmol/L mmol/L (22-30) Anion Gap 7 mmol/L L mmol/L (8-16) BUN 43 mg/dL H mg/dL (7-17) Creatinine 1.20 mg/dL H mg/dL (0.7-1.0) Estim Creat Clear Calc Not Reportable Estimated GFR 44 L (59 - ) Glucose 111 mg/dL H mg/dL (65-110) Lactic Acid 1.5 mmol/L mmol/L (0.7-2.0) Calcium 7.9 mg/dL L mg/dL (8.4-10.2) Phosphorus 4.1 mg/dL mg/dL (2.5-4.5) Magnesium 1.6 mg/dL mg/dL (1.6-2.3) Total Bilirubin AST ALT Alkaline Phosphatase Total Protein Albumin 12/03/21 12/03/21 12/03/21 14:32 14:32 14:32 WBC RBC Hgb Cancelled Cancelled Hct Cancelled Cancelled MCV MCH MCHC RDW Plt Count MPV Immature Gran % (Auto) Neut % (Auto) Lymph % (Auto) Coffee % (Auto) Eos % (Auto) Baso % (Auto) Lymph # (Auto) Coffee # (Auto) Eos # (Auto) Baso # (Auto) Abs Immat Gran (auto) Absolute Neuts (auto) Absolute Nucleated RBC Nucleated RBC % Sodium Potassium Chloride
[2021-12-03] MEDS: LACTATED RINGERS 1,000 ML 150 ML IV CONT (19:06)
--- NOTE | 2021-12-03 19:26 | P.OP_ITS ---
Procedure Note - Detailed Date of Procedure 12/03/21 Pre-op Diagnosis GI Bleed Post-op Diagnosis Same Procedure Performed EGD Surgeon Herb Monroe MD Anesthesia MAC Indications Acute blood loss anemia; Hematemesis Description of Procedure HERB MONROE MD, FACG, FACP UPPER ENDOSCOPY 12-03-2021 INDICATION: Acute blood loss anemia with hematemesis. POST-OP: Ulcerative esophagitis. Non-erosive gastritis. 5 cm hiatal hernia. Fred chayito biopsies done. SEDATION: Per anesthesia With the patient in the left lateral decubitus position, the Pharmaxisinon upper endoscope was used to easily intubate the patient?s esophagus and advanced to t he third portion of the duodenum. Careful inspection of the mucosa was made upon insertion and withdrawal of the endoscope with retroflexion in the stomach. FINDINGS: Esophagus: SC Jx at 35 cm. Ulcerative esophagitis with geographic ulcers from 30-> 35 cm. No stricture, mass or King?s. Stomach: 5 cm hiatal hernia. Fundus, body and antrum with diffuse erythema and edema consistent with chronic, non-erosive gastritis; biopsies taken throughout the stomach. No ulceration, erosion, AVM or malignancy. Duodenum: Normal in the bulb, second and third portion. No complications, blood loss or implants. Assessment and plan: A. Acute blood loss anemia with hematemesis: - Likely secondary to ulcerative esophagitis - Continue PPI - Add Carafate elixir for one month - Avoid aspirin, NSAIDS and anticoagulants if possible - Repeat EGD in 2-3 months B. Chronic, non-erosive gastritis: - Biopsies done - If H. pylori positive will treat C. GERD: PPI D. Macrocytosis: denies alcohol; check B12/folate E. Screening for colon cancer: consider for colonoscopy when stable, likely as OP Further GI recommendations per [facility] Herb Monroe M.D. [phone] Cc: Dr. Bentley Jackson; Dr. Hardy Implants None Estimated Blood Loss 0 Drains No Packing No Pathology Yes Complications No immediate complications Condition Stable Disposition Floor
[2021-12-04] VITALS (10 sets, daily range): BP systolic 103–142; BP diastolic 54–68; PULSE 50–79; RESP 16–20; TEMP 36.3–37.2; O2SAT 96–100
[2021-12-04] MEDS: LORazepam (*CRX) 0.5 MG TABLET 0.25 MG PO (02:54)
[2021-12-04] MEDS: LEVOTHYROXINE SODIUM 50 MCG TABLET PO (05:41)
[2021-12-04] MEDS: MIDODRINE HCL 10 MG TABLET PO ×3 (08:23→16:38)
[2021-12-04] MEDS: DOXYCYCLINE 100 MG/NS 100 ML 100 MG/100 ML BAG IVPB ×2 (08:24→23:37)
[2021-12-04] MEDS: SIMVASTATIN 20 MG TABLET 40 MG PO (08:24)
--- NOTE | 2021-12-04 08:46 | PM.IMPN ---
Progress Note: A&P Assessment and Plan (1) Coffee ground emesis: Code(s): K92.0 - Hematemesis Status: Acute Assessment and Plan: Associated with acute blood loss anemia Status post EGD on 12/03/2021 Ulcerative esophagitis. Non-erosive gastritis. 5 cm hiatal hernia. Gastric biopsies done PPI and Carafate GI following Follow-up on the result of H pylori and biopsy Clear liquid diet Monitor H&H transfuse if hemoglobin below 7 Colonoscopy as outpatient (2) Altered mental status: Code(s): R41.82 - Altered mental status, unspecified Status: Acute Assessment and Plan: Most likely related to acute metabolic encephalopathy resolved secondary to GI bleed dehydration and acute renal failure Continue to monitor Supportive care (3) GERD (gastroesophageal reflux disease): Code(s): K21.9 - Gastro-esophageal reflux disease without esophagitis Status: Acute Assessment and Plan: Currently on PPI (4) Extremity cyanosis: Code(s): R23.0 - Cyanosis Status: Acute Assessment and Plan: CT angiogram of right lower extremity resolved most likely worsening of severe peripheral vascular disease worsened by GI bleed Monitor closely neurovascular check follow-up with PCP and vascular surgeon as outpatient Patient had GI bleed not candidate for antiplatelet pending for final recommendation of GI regarding when to start antiplatelet No sign of acute ischemia on daily exam No change in neurovascular check I discussed with the patient patient verbalized understanding plan of care (5) STACEY (acute kidney injury): Code(s): N17.9 - Acute kidney failure, unspecified Status: Acute Assessment and Plan: Likely to be pre renal azotemia BUN and creatinine trending down Continue to monitor Resolved (6) COPD (chronic obstructive pulmonary disease): Code(s): J44.9 - Chronic obstructive pulmonary disease, unspecified Status: Acute Assessment and Plan: Patient is not actively wheezing Continue to monitor Continue home meds (7) Pneumonia: Code(s): J18.9 - Pneumonia, unspecified organism Status: Acute Assessment and Plan: Associated with leukocytosis present on admission continue IV antibiotics culture negative so far Anticipate discharge in 1-2 days since patient tolerated diet and hemodynamic improved with blood pressure stabilization probably home with home Subjective Date/time seen: 12/04/21 08:46 Interval history: 76-year-old female with past medical history significant for COPD/emphysema, hypothyroidism, gastroesophageal reflux disease. Patient comes transferred from outside hospital due to episode of coffee-ground emesis. According to medical records patient was brought for evaluation due to altered mental status, nausea, vomiting, diarrhea, coffee-ground emesis. Patient has history of peptic ulcer disease and GI bleed in the past. Patient was found to have acute blood loss anemia secondary to GI bleed associated with acute renal failure and acute metabolic encephalopathy treated with IV hydration Protonix drip GI was consulted Patient feels weak patient is alert oriented moves all extremities Patient denies fever headache chest pain shortness of breath I am seeing the patient for GI bleed Exam Narrative: Alert Chest no wheeze crackles Abdomen nontender nondistended CVS S1 + S2 Lower extremity edema Neuro nonfocal Objective Data Vital Signs Vital Signs: Vital Signs - 24 hr 12/03/21 13:41 12/03/21 14:00 12/03/21 14:47 Temperature 99.5 F Pulse Rate 77 Respiratory Rate 16 Blood Pressure 79/51 L 110/56 L Pulse Oximetry 97 12/03/21 19:05 12/03/21 19:28 12/03/21 19:38 Temperature 98.2 F Pulse Rate 55 L 74 70 Respiratory Rate 16 19 23 H Blood Pressure 77/59 L 87/45 L 65/42 L Pulse Oximetry 97 98 98 12/03/21 19:48 12/03/21 20:00 12/03/21 20:45 Temperature 97.9 F Pulse Rate 69 69 59 L
--- NOTE | 2021-12-04 08:57 | P.PNAN_ITS ---
Anes - Prog Note Post-Op Date/Time: 12/04/21 08:57 Cardiovascular status: normal Respiratory status: normal Airway patency: baseline Mental status: baseline Post-Op hydration status: normal Vital Signs: Last Vital Signs Temp 37.2 C 12/04/21 06:06 Pulse 72 12/04/21 06:06 Resp 16 12/04/21 06:06 BP 109/59 L 12/04/21 06:06 Pulse Ox 97 12/04/21 06:06 Pain Score (VAS): 0 I/O: Intake & Output 12/03/21 12/04/21 12/04/21 23:59 07:59 15:59 Intake Total 1500 500 Output Total 0 Balance 1500 500 Laboratory Tests 12/03/21 14:32 12/03/21 14:32 12/03/21 12/03/21 12/03/21 14:32 14:32 14:32 WBC RBC Hgb Cancelled Cancelled Hct Cancelled Cancelled MCV MCH MCHC RDW Plt Count MPV Immature Gran % (Auto) Neut % (Auto) Lymph % (Auto) [place] % (Auto) Eos % (Auto) Baso % (Auto) Lymph # (Auto) [place] # (Auto) Eos # (Auto) Baso # (Auto) Abs Immat Gran (auto) Absolute Neuts (auto) Absolute Nucleated RBC Nucleated RBC % Sodium Potassium Chloride Carbon Dioxide Anion Gap BUN Creatinine Estim Creat Clear Calc Estimated GFR Glucose Lactic Acid 1.2 Calcium Total Bilirubin AST ALT Alkaline Phosphatase Total Protein Albumin 12/03/21 12/03/21 14:32 14:32 WBC 14.9 H RBC 2.62 L Hgb 8.7 L Hct 26.5 L MCV 101.1 H MCH 33.2 MCHC 32.8 RDW 13.2 Plt Count 326 MPV 9.2 Immature Gran % (Auto) 0.4 Neut % (Auto) 92.1 H Lymph % (Auto) 5.9 L [place] % (Auto) 1.5 L Eos % (Auto) 0.0 Baso % (Auto) 0.1 L Lymph # (Auto) 0.88 L [place] # (Auto) 0.2 Eos # (Auto) 0.0 Baso # (Auto) 0.0 Abs Immat Gran (auto) 0.06 H Absolute Neuts (auto) 13.7 H Absolute Nucleated RBC 0.0 Nucleated RBC % 0.0 Sodium 131 L Potassium 3.2 L Chloride 98 Carbon Dioxide 27 Anion Gap 6 L BUN 24 H D Creatinine 0.80 Estim Creat Clear Calc Not Reportable Estimated GFR > 60 Glucose 164 H Lactic Acid Calcium 7.8 L Total Bilirubin < 0.1 L AST 70 H ALT 19 Alkaline Phosphatase 73 Total Protein 6.0 L Albumin 2.9 L Post-procedural complaints: none Patient Feedback: Patient satisfied with anesthetic care.
[2021-12-04] MEDS: UMECLIDINIUM BROMIDE 62.5 MCG ELLIPTA 1 PUFF INHALATION (09:27)
[2021-12-04] MEDS: DEXTROSE 5%/0.45% SOD CHL 1,000 ML 65 ML IV CONT (10:13)
[2021-12-04] MEDS: GABAPENTIN 100 MG CAPSULE PO ×4 (10:22→20:46)
[2021-12-04] MEDS: POTASSIUM CHLORIDE 20 MEQ TABLET 40 MEQ PO (10:23)
[2021-12-04] MEDS: SUCRALFATE SUSP 100 MG/ML 10 ML UDC 1000 MG PO ×3 (10:48→20:46)
[2021-12-04] MEDS: PHARMACIST COMMUNICATION ORDER 1 EACH XX (12:46)
--- NOTE | 2021-12-04 14:31 | WPDGIPROGNO ---
Progress Note: A&P Assessment and Plan (1) Erosive esophagitis: Code(s): K22.10 - Ulcer of esophagus without bleeding Status: Acute Assessment and Plan: will switch to protonix twice daily no more bleeding also carafate for 2 weeks egd in 3 months as outpatient to assess for healing (2) Coffee ground emesis: Code(s): K92.0 - Hematemesis Status: Acute Assessment and Plan: resolved (3) Acute blood loss anemia: Code(s): D62 - Acute posthemorrhagic anemia Status: Acute Assessment and Plan: stable (4) STACEY (acute kidney injury): Code(s): N17.9 - Acute kidney failure, unspecified Status: Acute Assessment and Plan: resolved (5) Pneumonia: Code(s): J18.9 - Pneumonia, unspecified organism Status: Acute Assessment and Plan: on antibiotics Subjective Date/time seen: 12/04/21 14:31 Interval history: egd showed erosive esophagitis, patient doing well and denies more hematemesis and is comfortable Review of Systems Review of Systems: All systems reviewed & are unremarkable except as noted in HPI and below Exam Const: General: comfortable and no acute distress HENMT: General nose exam: Normal nares present Eyes: General: appearance normal, both eyes and all related structures Neck: Neck: no JVD Resp: Auscultation: clear to auscultation bilaterally Cardio: Rate: regular rate Rhythm: regular rhythm GI: Inspection: non-distended GI Palp: Yes Soft to palpation Skin: General skin exam: normal color Neuro: General: gait normal Speech: normal speech Extrem: General: normal to inspection Psych: Mental Status: mental status grossly normal Objective Data Vital Signs Vital Signs: Vital Signs - 24 hr 12/03/21 14:47 12/03/21 19:05 12/03/21 19:28 Temperature 98.2 F Pulse Rate 55 L 74 Respiratory Rate 16 19 Blood Pressure 110/56 L 77/59 L 87/45 L Pulse Oximetry 97 98 12/03/21 19:38 12/03/21 19:48 12/03/21 20:00 Temperature Pulse Rate 70 69 69 Respiratory Rate 23 H 21 H 21 H Blood Pressure 65/42 L 124/53 L Pulse Oximetry 98 100 100 12/03/21 20:45 12/04/21 06:06 12/04/21 08:00 Temperature 97.9 F 98.9 F Pulse Rate 59 L 72 72 Respiratory Rate 16 16 16 Blood Pressure 120/48 L 109/59 L Pulse Oximetry 97 97 97 Intake/Output Intake/Output: Intake & Output 12/01/21 12/02/21 12/03/21 12/04/21 23:59 23:59 23:59 23:59 Intake Total 2200 2210 Output Total 50 Balance 2150 2210 Meds/Results Medications: Active Medications Generic Name Dose Route Start Last Admin Trade Name Freq PRN Reason Stop Dose Admin Gabapentin 100 mg 12/03/21 13:00 12/04/21 12:48 Gabapentin 100 Mg Capsule PO Not Given QID NEPTALI Dextrose/Sodium Chloride 1,000 mls @ 65 mls/hr 12/03/21 00:20 12/04/21 10:13 Dextrose 5% Sodium Chloride 0.45% IV CONT 65 mls/hr .[id number] NEPTALI Administration Pantoprazole Sodium 80 mg/ 500 mls @ 50 mls/hr 12/03/21 00:30 12/04/21 12:46 Dextrose IV CONT 50 mls/hr .Q10H NEPTALI Administration Ceftriaxone Sodium/Dextrose 1 gm in 50 mls @ 100 mls/hr 12/03/21 10:00 12/04/21 09:55 Rocephin 1 Gm/D5w 50 Ml IVPB Infused Q24H NEPTALI Infusion Doxycycline Hyclate 100 mg in 100 mls @ 100 mls/hr 12/03/21 09:40 12/04/21 09:24 Vibramycin 100 Mg/Ns 100 Ml IVPB Infused Q12HR NEPTALI Infusion Levothyroxine Sodium 50 mcg 12/04/21 06:30 12/04/21 05:41 Levothyroxine Sodium 50 Mcg Tablet PO 50 mcg DAILY@0630 NEPTALI Administration Lorazepam 0.25 mg 12/03/21 09:51 12/04/21 02:54 Lorazepam (*Crx) 0.5 Mg Tablet PO 0.25 mg TID PRN Administration anxiety Midodrine 10 mg 12/03/21 17:00 12/04/21 12:46 Midodrine Hcl 10 Mg Tablet PO 10 mg TID NEPTALI Administration Non-Formulary Medication 25 mg 12/04/21 09:00 Naloxegol [Movantik] PO 01/03/22 08:59 DAILY NEPTALI Non-Formulary Medication 40 mg 12/04/21 09:00 Omeprazole
[2021-12-04 14:49] LABS: Hematocrit 19.1 % (37.0-47.0); Hemoglobin 6.3 g/dL (12.0-15.0)
--- NOTE | 2021-12-04 14:54 | PC.NURSE ---
repeating H&H critical reported to MD Figueredo, stat H&H ordered.
[2021-12-04 15:27] LABS: Hematocrit 19.6 % (37.0-47.0); Hemoglobin 6.4 g/dL (12.0-15.0)
[2021-12-04 16:19] LABS: Basophils Percent Auto 0.1 % (0.2-1.2); Immature Granulocyte Absolute 0.07 K/mm3 (0.00-0.031); Immature Granulocyte Percent A 0.5 % (0-0.5); Lymphocytes Absolute Auto 2.48 K/mm3 (0.9-3.2); Lymphocytes Percent Auto 16.9 % (18.3-44.2); Mean Corpuscular HGB Conc 31.1 g/dl (32-36); Mean Corpuscular Hemoglobin 33.7 pg (26-34); Mean Corpuscular Volume 108.3 fl (80-100); Mean Platelet Volume 9.7 fl (7.4-10.4); Monocytes Absolute Auto 1.5 K/mm3 (0.1-0.6); Monocytes Percent Auto 10.3 % (2.6-8.5); Neutrophils Absolute Auto 10.6 K/mm3 (1.3-6.7); Neutrophils Percent Auto 72.2 % (45.5-73.1); Platelet Count Result 255 k/mm3 (150-375); Red Blood Count 1.81 M/mm3 (4.2-5.4); Red Cell Distribution Width 13.3 % (11.5-14.5); White Blood Count 14.7 K/mm3 (4.5-10.0)
[2021-12-04 16:27] LABS: Hemoglobin 6.1 g/dL (12.0-15.0)
[2021-12-04 16:28] LABS: Hematocrit 19.6 % (37.0-47.0)
[2021-12-04 16:46] LABS: Alanine Aminotransferase 22 U/L (6-35); Albumin Level 2.5 g/dL (3.5-5.1); Alkaline Phosphatase 56 U/L (38-126); Anion Gap 3 mmol/L (8-16); Aspartate Amino Transferase 73 U/L (14-36); Bilirubin,Total 0.1 mg/dL (0.2-1.3); Blood Urea Nitrogen 12 mg/dL (7-17); Calcium 7.7 mg/dL (8.4-10.2); Carbon Dioxide 23 mmol/L (22-30); Chloride 103 mmol/L (98-107); Estimated Glomerular Filt Rate > 60; Glucose 89 mg/dL (65-110); Potassium 3.7 mmol/L (3.4-5.0); Sodium 129 mmol/L (137-145)
--- NOTE | 2021-12-04 17:00 | PC.NURSE ---
Reported Hemoglobin 6.1 to MD Figueredo, awaring blood to be ready, 1 unit ordered. MD Méndez called from gi and update about pt situation.
--- NOTE | 2021-12-04 18:12 | PC.NURSE ---
called blood bank blood not ready yet awaiting type and screen.
[2021-12-04] MEDS: PANTOPRAZOLE 40 MG TABLET PO (20:46)
[2021-12-05 03:00] LABS: Hematocrit 35.5 % (37.0-47.0); Hemoglobin 10.6 g/dL (12.0-15.0)
--- NOTE | 2021-12-05 06:20 | PC.NURSE ---
Patients blood was finished infusing at 2245. H&H was ordered for 2345. This nurse, lab, and 2 others attempted to draw the H&H with no success. A sample was finally obtained and sent to lab, but the result does not seem accurate because the patient only received one unit of blood. Will pass on this information to day shift.
[2021-12-05] MEDS: DEXTROSE 5%/0.45% SOD CHL 1,000 ML 65 ML IV CONT (07:35)
[2021-12-05 07:56] LABS: Glucose Point of Care 85 mg/dl (65-105)
[2021-12-05 08:00] VITALS: BP 77/51; PULSE 69; RESP 20; TEMP 36.4; O2SAT 97
[2021-12-05 08:48] LABS: Basophils Percent Auto 0.1 % (0.2-1.2); Hemoglobin 9.6 g/dL (12.0-15.0); Immature Granulocyte Absolute 0.15 K/mm3 (0.00-0.031); Immature Granulocyte Percent A 1.1 % (0-0.5); Lymphocytes Percent Auto 18.4 % (18.3-44.2); Mean Corpuscular HGB Conc 34.3 g/dl (32-36); Mean Corpuscular Hemoglobin 32.9 pg (26-34); Mean Corpuscular Volume 95.9 fl (80-100); Mean Platelet Volume 9.9 fl (7.4-10.4); Monocytes Absolute Auto 1.3 K/mm3 (0.1-0.6); Monocytes Percent Auto 8.9 % (2.6-8.5); Neutrophils Absolute Auto 10.1 K/mm3 (1.3-6.7); Neutrophils Percent Auto 71.5 % (45.5-73.1); Nucleated Red Blood Cells Absolute Auto 0.1 K/mm3 (0.0-0.012); Nucleated Red Blood Cells Perc 0.5 % (0.0-0.2); Platelet Count Result 294 k/mm3 (150-375); Red Blood Count 2.92 M/mm3 (4.2-5.4); Red Cell Distribution Width 13.7 % (11.5-14.5); White Blood Count 14.1 K/mm3 (4.5-10.0)
[2021-12-05 09:02] LABS: Alanine Aminotransferase 36 U/L (6-35); Albumin Level 2.8 g/dL (3.5-5.1); Alkaline Phosphatase 75 U/L (38-126); Anion Gap 6 mmol/L (8-16); Aspartate Amino Transferase 108 U/L (14-36); Bilirubin,Total 0.4 mg/dL (0.2-1.3); Blood Urea Nitrogen 10 mg/dL (7-17); Calcium 8.2 mg/dL (8.4-10.2); Carbon Dioxide 25 mmol/L (22-30); Chloride 102 mmol/L (98-107); Estimated Glomerular Filt Rate > 60; Glucose 89 mg/dL (65-110); Potassium 3.1 mmol/L (3.4-5.0); Sodium 133 mmol/L (137-145)
[2021-12-05 09:22] VITALS: PULSE 87; RESP 12
[2021-12-05] MEDS: UMECLIDINIUM BROMIDE 62.5 MCG ELLIPTA 1 PUFF INHALATION (09:22)
[2021-12-05] MEDS: DOXYCYCLINE 100 MG/NS 100 ML 100 MG/100 ML BAG IVPB ×2 (09:23→21:03)
[2021-12-05] MEDS: SIMVASTATIN 20 MG TABLET 40 MG PO (09:25)
[2021-12-05] MEDS: GABAPENTIN 100 MG CAPSULE PO ×4 (09:25→21:03)
[2021-12-05] MEDS: MIDODRINE HCL 10 MG TABLET PO ×3 (09:25→17:32)
[2021-12-05] MEDS: PANTOPRAZOLE 40 MG TABLET PO ×2 (09:25→21:05)
[2021-12-05 09:51] VITALS: BP 100/55
[2021-12-05] MEDS: SUCRALFATE SUSP 100 MG/ML 10 ML UDC 1000 MG PO ×3 (10:54→21:05)
[2021-12-05 11:14] LABS: Glucose Point of Care 98 mg/dl (65-105)
--- NOTE | 2021-12-05 11:44 | WPDGIPROGNO ---
Progress Note: A&P Assessment and Plan (1) Erosive esophagitis: Code(s): K22.10 - Ulcer of esophagus without bleeding Status: Acute Assessment and Plan: continue protonix twice daily no obvious bleeding but required blood transfusion yesterday probably from gib at presentation, trend h/h also carafate for 2 weeks egd in 3 months as outpatient to assess for healing I offered to do colonoscopy since never had one but she does not want it and will think about it for later on (2) Coffee ground emesis: Code(s): K92.0 - Hematemesis Status: Acute Assessment and Plan: resolved (3) Acute blood loss anemia: Code(s): D62 - Acute posthemorrhagic anemia Status: Acute Assessment and Plan: continue to monitor (4) STACEY (acute kidney injury): Code(s): N17.9 - Acute kidney failure, unspecified Status: Acute Assessment and Plan: resolved (5) Pneumonia: Code(s): J18.9 - Pneumonia, unspecified organism Status: Acute Assessment and Plan: on antibiotics (6) Peripheral vascular disease: Code(s): I73.9 - Peripheral vascular disease, unspecified Status: Acute Assessment and Plan: new finding with severe disease, will need vascular surgery consult Subjective Date/time seen: 12/05/21 11:44 Interval history: no more obvious bleeding but hb down yesterday and required more blood transfusion, today 9. Patient denies BM. CT scan also found severe vascular disease of leg Review of Systems Review of Systems: All systems reviewed & are unremarkable except as noted in HPI and below Exam Const: General: comfortable and no acute distress Other: thin HENMT: General nose exam: Normal nares present Eyes: General: appearance normal, both eyes and all related structures Neck: Neck: no JVD Resp: Auscultation: clear to auscultation bilaterally Cardio: Rate: regular rate Rhythm: regular rhythm GI: Inspection: non-distended GI Palp: Yes Soft to palpation Skin: General skin exam: normal color Neuro: General: gait normal Speech: normal speech Extrem: General: normal to inspection Psych: Mental Status: mental status grossly normal Objective Data Vital Signs Vital Signs: Vital Signs - 24 hr 12/04/21 16:00 12/04/21 18:57 12/04/21 19:13 Temperature 98.8 F 97.8 F 97.4 F L Pulse Rate 65 52 L 56 L Respiratory Rate 16 18 18 Blood Pressure 110/64 115/54 L 124/57 L Pulse Oximetry 97 96 96 12/04/21 20:13 12/04/21 21:13 12/04/21 22:13 Temperature 97.4 F L 97.5 F L 97.5 F L Pulse Rate 79 50 L 58 L Respiratory Rate 18 20 16 Blood Pressure 110/68 142/56 H 103/60 Pulse Oximetry 96 99 100 12/04/21 22:43 12/04/21 22:45 12/05/21 08:00 Temperature 97.5 F L 97.5 F L 97.6 F Pulse Rate 50 L 50 L 69 Respiratory Rate 20 20 20 Blood Pressure 142/56 H 142/56 H 77/51 L Pulse Oximetry 99 99 97 12/05/21 09:22 12/05/21 09:51 Temperature Pulse Rate 87 Respiratory Rate 12 Blood Pressure 100/55 L Pulse Oximetry Intake/Output Intake/Output: Intake & Output 12/02/21 12/03/21 12/04/21 12/05/21 23:59 23:59 23:59 23:59 Intake Total 2200 2910 1250 Output Total 50 Balance 2150 2910 1250 Meds/Results Medications: Active Medications Generic Name Dose Route Start Last Admin Trade Name Harris PRN Reason Stop Dose Admin Gabapentin 100 mg 12/03/21 13:00 12/05/21 09:25 Gabapentin 100 Mg Capsule PO 100 mg QID NEPTALI Administration Dextrose/Sodium Chloride 1,000 mls @ 65 mls/hr 12/03/21 00:20 12/05/21 07:35 Dextrose 5% Sodium Chloride 0.45% IV CONT 65 mls/hr .[id number] NEPTALI Administration Ceftriaxone Sodium/Dextrose 1 gm in 50 mls @ 100 mls/hr 12/03/21 10:00 12/05/21 11:17 Rocephin 1 Gm/D5w 50 Ml IVPB Infused Q24H NEPTALI Infusion Doxycycline Hyclate 100 mg in 100 mls @ 100 mls/hr 12/03/21 09:40 12/05/21 10:23 Vibramycin 100 Mg/Ns 100 Ml IVPB Infused Q12HR NEPTALI Infusion Le
[2021-12-05] MEDS: POTASSIUM CHLORIDE 20 MEQ PACKET (FOR LIQUID) 40 MEQ PO (13:51)
[2021-12-05 14:43] LABS: Hematocrit 32.3 % (37.0-47.0); Hemoglobin 10.8 g/dL (12.0-15.0)
--- NOTE | 2021-12-05 14:53 | PM.IMPN ---
Progress Note: A&P Assessment and Plan (1) Coffee ground emesis: Code(s): K92.0 - Hematemesis Status: Acute Assessment and Plan: Associated with acute blood loss anemia Status post EGD on 12/03/2021 Ulcerative esophagitis. Non-erosive gastritis. 5 cm hiatal hernia. Gastric biopsies done PPI and Carafate GI following Follow-up on the result of H pylori and biopsy Clear liquid diet Monitor H&H transfuse if hemoglobin below 7 Colonoscopy as outpatient (2) Altered mental status: Code(s): R41.82 - Altered mental status, unspecified Status: Acute Assessment and Plan: Most likely related to acute metabolic encephalopathy resolved secondary to GI bleed dehydration and acute renal failure Continue to monitor Supportive care (3) GERD (gastroesophageal reflux disease): Code(s): K21.9 - Gastro-esophageal reflux disease without esophagitis Status: Acute Assessment and Plan: Currently on PPI (4) Extremity cyanosis: Code(s): R23.0 - Cyanosis Status: Acute Assessment and Plan: CT angiogram of right lower extremity resolved most likely worsening of severe peripheral vascular disease worsened by GI bleed Monitor closely neurovascular check follow-up with PCP and vascular surgeon as outpatient Patient had GI bleed not candidate for antiplatelet pending for final recommendation of GI regarding when to start antiplatelet No sign of acute ischemia on daily exam No change in neurovascular check I discussed with the patient patient verbalized understanding plan of care (5) STACEY (acute kidney injury): Code(s): N17.9 - Acute kidney failure, unspecified Status: Acute Assessment and Plan: Likely to be pre renal azotemia BUN and creatinine trending down Continue to monitor Resolved (6) COPD (chronic obstructive pulmonary disease): Code(s): J44.9 - Chronic obstructive pulmonary disease, unspecified Status: Acute Assessment and Plan: Patient is not actively wheezing Continue to monitor Continue home meds (7) Pneumonia: Code(s): J18.9 - Pneumonia, unspecified organism Status: Acute Assessment and Plan: Associated with leukocytosis present on admission continue IV antibiotics culture negative so far Anticipate discharge in 1-2 days since patient tolerated diet and hemodynamic improved with blood pressure stabilization probably home with home Subjective Date/time seen: 12/05/21 14:53 Interval history: no more obvious bleeding but hb down yesterday and required more blood transfusion, today 9. Patient denies BM. CT scan also found severe vascular disease of leg 12/05/2021 interval history: 76-year-old female presented with hematemesis had a EGD it showed Erosive esophagitis patient is being treated with PPI and Carafate patient clinical symptoms are improved her hemoglobin is trending slightly down, will continue to monitor if hemoglobin, also concerning for pneumonia repeat x-ray tomorrow, patient being treated with ceftriaxone and doxycycline, remains stable tomorrow discharge the patient. Review of Systems Review of Systems: All systems reviewed & are unremarkable except as noted in HPI and below Exam Narrative: Patient is comfortable, NAD HEENT: eyes are clear and none icteric LUNGS: normal respiratory effort ABD: not distended Lower extremities: no edema SKIN: nonjaundiced Neuro: grossly intact. Objective Data Vital Signs Vital Signs: Vital Signs - 24 hr 12/04/21 16:00 12/04/21 18:57 12/04/21 19:13 Temperature 98.8 F 97.8 F 97.4 F L Pulse Rate 65 52 L 56 L Respiratory Rate 16 18 18 Blood Pressure 110/64 115/54 L 124/57 L Pulse Oximetry 97 96 96 12/04/21 20:13 12/04/21 21:13 12/04/21 22:13 Temperature 97.4 F L 97.5 F L 97.5 F L Pulse Rate 79 50 L 58 L Respiratory Rate 18 20 16 Blood Pressure 110/68 142/56 H 103/60 Pulse Oximetry 96 99 100 12/04/21 22:43 12/04/21 22:45 05
[2021-12-05 16:00] VITALS: BP 101/54; PULSE 68; RESP 20; TEMP 36.4; O2SAT 98
[2021-12-05 16:33] LABS: Glucose Point of Care 100 mg/dl (65-105)
[2021-12-05] MEDS: LIDOCAINE 5% PATCH 2 PATCH TRANSDERM (17:28)
[2021-12-05] MEDS: SODIUM CHLORIDE 0.9% IV 250 ML 30 ML IV CONT (18:50)
[2021-12-05 22:00] VITALS: BP 157/62; PULSE 52; RESP 18; TEMP 36.8; O2SAT 97
[2021-12-06] MEDS: LORazepam (*CRX) 0.5 MG TABLET 0.25 MG PO ×3 (01:37→22:41)
[2021-12-06] MEDS: DEXTROSE 5%/0.45% SOD CHL 1,000 ML 65 ML IV CONT ×2 (01:37→18:15)
[2021-12-06 06:00] VITALS: BP 113/81; PULSE 64; RESP 20; TEMP 36.6; O2SAT 98
[2021-12-06 06:16] LABS: Basophils Percent Auto 0.2 % (0.2-1.2); Eosinophils Percent Auto 0.3 % (0-4.4); Hematocrit 31.9 % (37.0-47.0); Hemoglobin 10.6 g/dL (12.0-15.0); Immature Granulocyte Percent A 0.8 % (0-0.5); Lymphocytes Absolute Auto 3.14 K/mm3 (0.9-3.2); Mean Corpuscular HGB Conc 33.2 g/dl (32-36); Mean Corpuscular Hemoglobin 33.4 pg (26-34); Mean Corpuscular Volume 100.6 fl (80-100); Mean Platelet Volume 9.6 fl (7.4-10.4); Monocytes Absolute Auto 1.1 K/mm3 (0.1-0.6); Monocytes Percent Auto 8.7 % (2.6-8.5); Neutrophils Absolute Auto 8.6 K/mm3 (1.3-6.7); Nucleated Red Blood Cells Perc 0.2 % (0.0-0.2); Platelet Count Result 332 k/mm3 (150-375); Red Blood Count 3.17 M/mm3 (4.2-5.4); Red Cell Distribution Width 13.6 % (11.5-14.5); White Blood Count 13.1 K/mm3 (4.5-10.0)
[2021-12-06 06:24] LABS: Alanine Aminotransferase 34 U/L (6-35); Albumin Level 2.9 g/dL (3.5-5.1); Alkaline Phosphatase 81 U/L (38-126); Anion Gap 5 mmol/L (8-16); Aspartate Amino Transferase 78 U/L (14-36); Bilirubin,Total 0.3 mg/dL (0.2-1.3); Blood Urea Nitrogen 6 mg/dL (7-17); Calcium 8.1 mg/dL (8.4-10.2); Carbon Dioxide 23 mmol/L (22-30); Chloride 104 mmol/L (98-107); Estimated Glomerular Filt Rate > 60; Glucose 99 mg/dL (65-110); Potassium 3.3 mmol/L (3.4-5.0); Sodium 132 mmol/L (137-145)
[2021-12-06] MEDS: LEVOTHYROXINE SODIUM 50 MCG TABLET PO (06:24)
[2021-12-06] MEDS: SUCRALFATE SUSP 100 MG/ML 10 ML UDC 1000 MG PO ×4 (06:24→20:38)
[2021-12-06 08:00] VITALS: BP 117/80; PULSE 66; RESP 18; TEMP 37; O2SAT 100
[2021-12-06] MEDS: UMECLIDINIUM BROMIDE 62.5 MCG ELLIPTA 1 PUFF INHALATION (08:36)
[2021-12-06] MEDS: LIDOCAINE 5% PATCH 2 PATCH TRANSDERM (09:06)
[2021-12-06] MEDS: DOXYCYCLINE 100 MG/NS 100 ML 100 MG/100 ML BAG IVPB ×2 (09:14→20:38)
[2021-12-06] MEDS: MIDODRINE HCL 10 MG TABLET PO (09:15)
[2021-12-06] MEDS: GABAPENTIN 100 MG CAPSULE PO ×2 (09:15→12:19)
[2021-12-06] MEDS: SIMVASTATIN 20 MG TABLET 40 MG PO (09:15)
[2021-12-06] MEDS: PANTOPRAZOLE 40 MG TABLET PO ×2 (09:15→20:38)
[2021-12-06] MEDS: POTASSIUM CHLORIDE 20 MEQ PACKET (FOR LIQUID) 40 MEQ PO (09:20)
[2021-12-06] MEDS: LIDOCAINE 5% PATCH 3 PATCH TRANSDERM (10:24)
[2021-12-06 14:02] LABS: Hematocrit 35.1 % (37.0-47.0); Hemoglobin 11.6 g/dL (12.0-15.0)
--- NOTE | 2021-12-06 14:25 | WPDGIPROGNO ---
Progress Note: A&P Assessment and Plan (1) Erosive esophagitis: Code(s): K22.10 - Ulcer of esophagus without bleeding Status: Acute Assessment and Plan: continue protonix twice daily no obvious bleeding and h/h stable since blood transfusion also carafate for 2 weeks egd in 3 months as outpatient to assess for healing, we can also do colonoscopy same time since never had one (still undecided and will think about it) home soon (2) Coffee ground emesis: Code(s): K92.0 - Hematemesis Status: Acute Assessment and Plan: resolved (3) Acute blood loss anemia: Code(s): D62 - Acute posthemorrhagic anemia Status: Acute Assessment and Plan: continue to monitor (4) STACEY (acute kidney injury): Code(s): N17.9 - Acute kidney failure, unspecified Status: Acute Assessment and Plan: resolved (5) Pneumonia: Code(s): J18.9 - Pneumonia, unspecified organism Status: Acute Assessment and Plan: on antibiotics (6) Peripheral vascular disease: Code(s): I73.9 - Peripheral vascular disease, unspecified Status: Acute Assessment and Plan: new finding with severe disease, will need vascular surgery follow-up Subjective Date/time seen: 12/06/21 14:25 Interval history: no changes, chronic pain in leg without changes, no signs of bleeding Review of Systems Review of Systems: All systems reviewed & are unremarkable except as noted in HPI and below Exam Const: General: comfortable and no acute distress Other: thin HENMT: General nose exam: Normal nares present Eyes: General: appearance normal, both eyes and all related structures Neck: Neck: no JVD Resp: Auscultation: clear to auscultation bilaterally Cardio: Rate: regular rate Rhythm: regular rhythm GI: Inspection: non-distended GI Palp: Yes Soft to palpation Skin: General skin exam: normal color Neuro: General: gait normal Speech: normal speech Extrem: General: normal to inspection Psych: Mental Status: mental status grossly normal Objective Data Vital Signs Vital Signs: Vital Signs - 24 hr 12/05/21 16:00 12/05/21 22:00 12/06/21 06:00 Temperature 97.5 F L 98.2 F 97.8 F Pulse Rate 68 52 L 64 Respiratory Rate 20 18 20 Blood Pressure 101/54 L 157/62 H 113/81 Pulse Oximetry 98 97 98 12/06/21 08:00 Temperature 98.6 F Pulse Rate 66 Respiratory Rate 18 Blood Pressure 117/80 Pulse Oximetry 100 Intake/Output Intake/Output: Intake & Output 12/03/21 12/04/21 12/05/21 12/06/21 23:59 23:59 23:59 23:59 Intake Total 2200 2910 2450 950 Output Total 50 Balance 2150 2910 2450 950 Meds/Results Medications: Active Medications Generic Name Dose Route Start Last Admin Trade Name Freq PRN Reason Stop Dose Admin Gabapentin 100 mg 12/03/21 13:00 12/06/21 12:19 Gabapentin 100 Mg Capsule PO 100 mg QID NEPTALI Administration Dextrose/Sodium Chloride 1,000 mls @ 65 mls/hr 12/03/21 00:20 12/06/21 05:27 Dextrose 5% Sodium Chloride 0.45% IV CONT Not Given .[id number] NEPTALI Ceftriaxone Sodium/Dextrose 1 gm in 50 mls @ 100 mls/hr 12/03/21 10:00 12/06/21 10:55 Rocephin 1 Gm/D5w 50 Ml IVPB Infused Q24H NETPALI Infusion Doxycycline Hyclate 100 mg in 100 mls @ 100 mls/hr 12/03/21 09:40 12/06/21 10:14 Vibramycin 100 Mg/Ns 100 Ml IVPB Infused Q12HR NEPTALI Infusion Levothyroxine Sodium 50 mcg 12/04/21 06:30 12/06/21 06:24 Levothyroxine Sodium 50 Mcg Tablet PO 50 mcg DAILY@0630 NEPTALI Administration Lidocaine 3 patch 12/07/21 09:00 12/06/21 10:24 Lidocaine 5% Patch TRANSDERM 1 patch DAILY NEPTALI Administration Lorazepam 0.25 mg 12/03/21 09:51 12/06/21 01:37 Lorazepam (*Crx) 0.5 Mg Tablet PO 0.25 mg TID PRN Administration anxiety Midodrine 10 mg 12/03/21 17:00 12/06/21 12:21 Midodrine Hcl 10 Mg Tablet PO Not Given TID NEPTALI Non-Formulary Medication 25 mg 12/04/21 09:00 Naloxeg
--- NOTE | 2021-12-06 15:44 | P.TS_ITS ---
Transfer Discharge Sum: Prov Provider Date of admission: 12/03/21 08:36 Primary care physician: Samantha Jackson, Admitting clinician: Jluis Whitt MD Consults: 12/02/21 Consult to Physician Routine Comment: Consulting Provider: Herb Monroe Reason for consultation: GI bleed Has provider been notified: Yes Transfer Discharge Sum: Med Medications Active and Home Medications: Home Medications omeprazole 40 mg capsule,delayed release 40 mg PO DAILY #90 cap 09/09/20 [Rx Confirmed 12/03/21] gabapentin 100 mg PO QID 12/02/21 [History Confirmed 12/03/21] levothyroxine 50 mcg PO DAILY 12/03/21 [History Confirmed 12/03/21] lorazepam 0.5 mg PO TID PRN 12/03/21 [History Confirmed 12/03/21] naloxegol [Movantik] 25 mg PO DAILY 12/03/21 [History Confirmed 12/03/21] oxybutynin chloride 15 mg PO DAILY 12/03/21 [History Confirmed 12/03/21] simvastatin 40 mg PO DAILY 12/03/21 [History Confirmed 12/03/21] umeclidinium [Incruse Ellipta] 62.5 mcg INHALATION DAILY 12/03/21 [History Confirmed 12/03/21] Active Medications Gabapentin (Gabapentin 100 Mg Capsule) 200 mg PO TID [facility] Dextrose/Sodium Chloride (Dextrose 5% Sodium Chloride 0.45%) 1,000 mls @ 65 mls/hr IV CONT .[id number] [facility] Last Admin: 12/06/21 05:27 Dose: Not Given Documented by: Ceftriaxone Sodium/Dextrose (Rocephin 1 Gm/D5w 50 Ml) 1 gm in 50 mls @ 100 mls/hr IVPB Q24H [facility] Last Infusion: 12/06/21 10:55 Dose: Infused Documented by: Doxycycline Hyclate (Vibramycin 100 Mg/Ns 100 Ml) 100 mg in 100 mls @ 100 mls/hr IVPB Q12HR [facility] Last Infusion: 12/06/21 10:14 Dose: Infused Documented by: Levothyroxine Sodium (Levothyroxine Sodium 50 Mcg Tablet) 50 mcg PO DAILY@0630 [facility] Last Admin: 12/06/21 06:24 Dose: 50 mcg Documented by: Lidocaine (Lidocaine 5% Patch) 3 patch TRANSDERM DAILY [facility] Last Admin: 12/06/21 10:24 Dose: 1 patch Documented by: Lorazepam (Lorazepam (*Crx) 0.5 Mg Tablet) 0.25 mg PO TID PRN PRN Reason: anxiety Last Admin: 12/06/21 01:37 Dose: 0.25 mg Documented by: Midodrine (Midodrine Hcl 10 Mg Tablet) 10 mg PO TID [facility] Last Admin: 12/06/21 12:21 Dose: Not Given Documented by: Non-Formulary Medication (Naloxegol [Movantik]) 25 mg PO DAILY [facility] Stop: 01/03/22 08:59 Non-Formulary Medication (Omeprazole) 40 mg PO DAILY [facility] Stop: 01/03/22 08:59 Ondansetron HCl (Ondansetron Inj 4 Mg/2 Ml Vial) 4 mg IV PUSH Q6H PRN PRN Reason: Nausea And Vomiting Oxybutynin Chloride (Oxybutynin Chloride Xl 5 Mg Tab.Er.24) 15 mg PO DAILY [facility] Last Admin: 12/06/21 09:15 Dose: 15 mg Documented by: Pantoprazole Sodium (Pantoprazole 40 Mg Tablet) 40 mg PO Q12HR [facility] Last Admin: 12/06/21 09:15 Dose: 40 mg Documented by: Simvastatin (Simvastatin 20 Mg Tablet) 40 mg PO DAILY [facility] Last Admin: 12/06/21 09:15 Dose: 40 mg Documented by: Sucralfate (Sucralfate Susp 100 Mg/Ml 10 Ml Udc) 1,000 mg PO ACHS [facility] Last Admin: 12/06/21 12:20 Dose: 1,000 mg Documented by: Umeclidinium [place] (Umeclidinium [place] 62.5 Mcg Ellipta) 1 puff INHALATION DAILY@0800 [facility] Last Admin: 12/06/21 08:36 Dose: 1 puff Documented by: Transfer Discharge Sum: Hosp Hospital Course Hospital course: Hanna Rai is a 76 year old female Time Spent with Patient Time attestation: Total time spent providing and/or coordinating transfer services: DS: Data Data Completed and Pending Completed studies during hospitalization: Pending at discharge
--- NOTE | 2021-12-06 15:44 | PM.TDS ---
Transfer Discharge Sum: Prov Provider Date of admission: 12/03/21 08:36 Primary care physician: Samantha Jackson, Admitting clinician: Jluis Whitt MD Consults: 12/02/21 Consult to Physician Routine Comment: Consulting Provider: Herb Monroe Reason for consultation: GI bleed Has provider been notified: Yes Transfer Discharge Sum: Med Medications Active and Home Medications: Home Medications omeprazole 40 mg capsule,delayed release 40 mg PO DAILY #90 cap 09/09/20 [Rx Confirmed 12/03/21] gabapentin 100 mg PO QID 12/02/21 [History Confirmed 12/03/21] levothyroxine 50 mcg PO DAILY 12/03/21 [History Confirmed 12/03/21] lorazepam 0.5 mg PO TID PRN 12/03/21 [History Confirmed 12/03/21] naloxegol [Movantik] 25 mg PO DAILY 12/03/21 [History Confirmed 12/03/21] oxybutynin chloride 15 mg PO DAILY 12/03/21 [History Confirmed 12/03/21] simvastatin 40 mg PO DAILY 12/03/21 [History Confirmed 12/03/21] umeclidinium [Incruse Ellipta] 62.5 mcg INHALATION DAILY 12/03/21 [History Confirmed 12/03/21] Active Medications Gabapentin (Gabapentin 100 Mg Capsule) 200 mg PO TID [facility] Dextrose/Sodium Chloride (Dextrose 5% Sodium Chloride 0.45%) 1,000 mls @ 65 mls/hr IV CONT .[id number] [facility] Last Admin: 12/06/21 05:27 Dose: Not Given Documented by: Ceftriaxone Sodium/Dextrose (Rocephin 1 Gm/D5w 50 Ml) 1 gm in 50 mls @ 100 mls/hr IVPB Q24H [facility] Last Infusion: 12/06/21 10:55 Dose: Infused Documented by: Doxycycline Hyclate (Vibramycin 100 Mg/Ns 100 Ml) 100 mg in 100 mls @ 100 mls/hr IVPB Q12HR [facility] Last Infusion: 12/06/21 10:14 Dose: Infused Documented by: Levothyroxine Sodium (Levothyroxine Sodium 50 Mcg Tablet) 50 mcg PO DAILY@0630 [facility] Last Admin: 12/06/21 06:24 Dose: 50 mcg Documented by: Lidocaine (Lidocaine 5% Patch) 3 patch TRANSDERM DAILY [facility] Last Admin: 12/06/21 10:24 Dose: 1 patch Documented by: Lorazepam (Lorazepam (*Crx) 0.5 Mg Tablet) 0.25 mg PO TID PRN PRN Reason: anxiety Last Admin: 12/06/21 01:37 Dose: 0.25 mg Documented by: Midodrine (Midodrine Hcl 10 Mg Tablet) 10 mg PO TID [facility] Last Admin: 12/06/21 12:21 Dose: Not Given Documented by: Non-Formulary Medication (Naloxegol [Movantik]) 25 mg PO DAILY [facility] Stop: 01/03/22 08:59 Non-Formulary Medication (Omeprazole) 40 mg PO DAILY [facility] Stop: 01/03/22 08:59 Ondansetron HCl (Ondansetron Inj 4 Mg/2 Ml Vial) 4 mg IV PUSH Q6H PRN PRN Reason: Nausea And Vomiting Oxybutynin Chloride (Oxybutynin Chloride Xl 5 Mg Tab.Er.24) 15 mg PO DAILY [facility] Last Admin: 12/06/21 09:15 Dose: 15 mg Documented by: Pantoprazole Sodium (Pantoprazole 40 Mg Tablet) 40 mg PO Q12HR [facility] Last Admin: 12/06/21 09:15 Dose: 40 mg Documented by: Simvastatin (Simvastatin 20 Mg Tablet) 40 mg PO DAILY [facility] Last Admin: 12/06/21 09:15 Dose: 40 mg Documented by: Sucralfate (Sucralfate Susp 100 Mg/Ml 10 Ml Udc) 1,000 mg PO ACHS [facility] Last Admin: 12/06/21 12:20 Dose: 1,000 mg Documented by: Umeclidinium [place] (Umeclidinium [place] 62.5 Mcg Ellipta) 1 puff INHALATION DAILY@0800 [facility] Last Admin: 12/06/21 08:36 Dose: 1 puff Documented by: Transfer Discharge Sum: Hosp Hospital Course Hospital course: Hanna Rai is a 76 year old female Time Spent with Patient Time attestation: Total time spent providing and/or coordinating transfer services: DS: Data Data Completed and Pending Completed studies during hospitalization: Pending at discharge 12/03/21 19:22 Surgical [PTH] Routine Labs on day of discharge: Labs from last 24 hours 0512/06/21 12/06/21 13:56 05:56 05:56 WBC 13.1 H RBC 3.17 L Hgb 11.6 L 10.6 L Hct 35.1 L 31.9 L MCV 100.6 H MCH 33.4 MCHC 33.2 RDW 13.6 Plt Count 332 MPV 9.6 Immature Gran % (Auto) 0.8 H Neut % (Auto) 66.0 Lymph % (Auto) 24.0 [place] % (Auto) 8.7 H Eos % (Auto) 0.3 Baso % (Auto) 0.2 Lymph # (Auto) 3.14 [place] # (Auto) 1.1 H Eos # (Auto) 0.0
[2021-12-06 16:00] VITALS: BP 115/70; PULSE 66; RESP 18; TEMP 36.9; O2SAT 98
[2021-12-06] MEDS: GABAPENTIN 100 MG CAPSULE 200 MG PO (16:14)
[2021-12-06 16:45] LABS: Glucose Point of Care 117 mg/dl (65-105)
[2021-12-06 20:00] VITALS: PULSE 66; RESP 18; O2SAT 98
[2021-12-06 22:00] VITALS: BP 138/70; PULSE 68; RESP 21; TEMP 36.7; O2SAT 100
--- NOTE | 2021-12-06 22:45 | PC.NURSE ---
MYSELF AND TWO OTHER NURSES ATTEMPTED TO GET AN IV INTO PT AFTER IV INFILTRATED. PT IS KNOWN FOR BEING A HARD STICK. EXTREMELY BRUISED AND SWOLLEN ALL OVER FROM PREVIOUS ATTEMPTS AND OTHER IVS. WILL LEAVE MESSAGE WITH VASCULAR ACCESS NURSE FOR THE MORNING.
[2021-12-07] MEDS: SUCRALFATE SUSP 100 MG/ML 10 ML UDC 1000 MG PO ×4 (05:59→20:21)
[2021-12-07] MEDS: LEVOTHYROXINE SODIUM 50 MCG TABLET PO (05:59)
[2021-12-07 06:05] LABS: Basophils Percent Auto 0.2 % (0.2-1.2); Eosinophils Absolute Auto 0.1 K/mm3 (0-0.3); Eosinophils Percent Auto 0.8 % (0-4.4); Hematocrit 37.7 % (37.0-47.0); Hemoglobin 12.3 g/dL (12.0-15.0); Immature Granulocyte Absolute 0.12 K/mm3 (0.00-0.031); Immature Granulocyte Percent A 0.7 % (0-0.5); Lymphocytes Percent Auto 19.5 % (18.3-44.2); Mean Corpuscular HGB Conc 32.6 g/dl (32-36); Mean Corpuscular Hemoglobin 33.2 pg (26-34); Mean Corpuscular Volume 101.9 fl (80-100); Mean Platelet Volume 9.4 fl (7.4-10.4); Monocytes Absolute Auto 1.2 K/mm3 (0.1-0.6); Monocytes Percent Auto 6.9 % (2.6-8.5); Neutrophils Absolute Auto 12.2 K/mm3 (1.3-6.7); Neutrophils Percent Auto 71.9 % (45.5-73.1); Platelet Count Result 437 k/mm3 (150-375); Red Cell Distribution Width 13.6 % (11.5-14.5); White Blood Count 16.9 K/mm3 (4.5-10.0)
[2021-12-07 06:45] VITALS: BP 136/67; PULSE 77; RESP 21; TEMP 36.2; O2SAT 100
[2021-12-07 08:00] VITALS: BP 128/72; PULSE 74; RESP 18; TEMP 37.4; O2SAT 96
[2021-12-07] MEDS: MIDODRINE HCL 10 MG TABLET PO ×3 (08:03→16:27)
[2021-12-07] MEDS: GABAPENTIN 100 MG CAPSULE 200 MG PO ×3 (08:03→16:27)
[2021-12-07] MEDS: PANTOPRAZOLE 40 MG TABLET PO ×2 (08:03→20:21)
[2021-12-07] MEDS: SIMVASTATIN 20 MG TABLET 40 MG PO (08:03)
[2021-12-07 08:06] LABS: Anion Gap 8 mmol/L (8-16); Blood Urea Nitrogen 7 mg/dL (7-17); Calcium 8.6 mg/dL (8.4-10.2); Carbon Dioxide 20 mmol/L (22-30); Chloride 105 mmol/L (98-107); Estimated Glomerular Filt Rate > 60; Glucose 88 mg/dL (65-110); Magnesium 1.4 mg/dL (1.6-2.3); Potassium 3.9 mmol/L (3.4-5.0); Sodium 133 mmol/L (137-145)
[2021-12-07] MEDS: LORazepam (*CRX) 0.5 MG TABLET 0.25 MG PO ×2 (08:09→15:33)
[2021-12-07] MEDS: LIDOCAINE 5% PATCH 3 PATCH TRANSDERM (08:11)
[2021-12-07] MEDS: UMECLIDINIUM BROMIDE 62.5 MCG ELLIPTA 1 PUFF INHALATION (09:19)
[2021-12-07] MEDS: DOXYCYCLINE 100 MG/NS 100 ML 100 MG/100 ML BAG IVPB ×2 (09:48→20:19)
--- NOTE | 2021-12-07 10:46 | PM.IMPN ---
Progress Note: A&P Assessment and Plan (1) Coffee ground emesis: Code(s): K92.0 - Hematemesis Status: Acute Assessment and Plan: Associated with acute blood loss anemia Status post EGD on 12/03/2021 Ulcerative esophagitis. Non-erosive gastritis. 5 cm hiatal hernia. Gastric biopsies done PPI and Carafate GI following Follow-up on the result of H pylori and biopsy Clear liquid diet Monitor H&H transfuse if hemoglobin below 7 Colonoscopy as outpatient (2) Altered mental status: Code(s): R41.82 - Altered mental status, unspecified Status: Acute Assessment and Plan: Most likely related to acute metabolic encephalopathy resolved secondary to GI bleed dehydration and acute renal failure Continue to monitor Supportive care (3) GERD (gastroesophageal reflux disease): Code(s): K21.9 - Gastro-esophageal reflux disease without esophagitis Status: Acute Assessment and Plan: Currently on PPI (4) Extremity cyanosis: Code(s): R23.0 - Cyanosis Status: Acute Assessment and Plan: CT angiogram of right lower extremity resolved most likely worsening of severe peripheral vascular disease worsened by GI bleed Monitor closely neurovascular check follow-up with PCP and vascular surgeon as outpatient Patient had GI bleed not candidate for antiplatelet pending for final recommendation of GI regarding when to start antiplatelet No sign of acute ischemia on daily exam No change in neurovascular check I discussed with the patient patient verbalized understanding plan of care (5) STACEY (acute kidney injury): Code(s): N17.9 - Acute kidney failure, unspecified Status: Acute Assessment and Plan: Likely to be pre renal azotemia BUN and creatinine trending down Continue to monitor Resolved (6) COPD (chronic obstructive pulmonary disease): Code(s): J44.9 - Chronic obstructive pulmonary disease, unspecified Status: Acute Assessment and Plan: Patient is not actively wheezing Continue to monitor Continue home meds (7) Pneumonia: Code(s): J18.9 - Pneumonia, unspecified organism Status: Acute Assessment and Plan: Associated with leukocytosis present on admission continue IV antibiotics culture negative so far Anticipate discharge in 1-2 days since patient tolerated diet and hemodynamic improved with blood pressure stabilization probably home with home Subjective Date/time seen: 12/06/21 10:46 12/06/2021 interval history: 76-year-old female presented with hematemesis had a EGD it showed Erosive esophagitis patient is being treated with PPI and Carafate patient clinical symptoms have improved her hemoglobin is trending slightly up, , will continue to monitor her hemoglobin, also concerning for pneumonia repeat x-ray on 12/05 showed no cardiopulmonary process will deescalate antibiotic, will stop ceftriaxone and continue doxycycline, patient was continue to complain burning pain and right lower extremity to further evaluate patient had a JORGE L which showed severe vascular disease with ratio of 0.18, I called vascular surgeon and Dr. Hooper it [facility] and patient is accepted for transfer eduardo available to the bed, will continue to monitor and further recommendation to follow. Review of Systems Review of Systems: All systems reviewed & are unremarkable except as noted in HPI and below Exam Narrative: Patient is comfortable, NAD HEENT: eyes are clear and none icteric LUNGS: normal respiratory effort ABD: not distended Lower extremities: no edema, right lower extremity and foot appears slightly atrophied and tender to touch. SKIN: nonjaundiced Neuro: grossly intact. Objective Data Vital Signs Vital Signs: Vital Signs - 24 hr 12/06/21 16:00 12/06/21 20:00 12/06/21 22:00 Temperature 98.4 F 98.1 F Pulse Rate 66 66 68 Respiratory Rate 18 18 21 H Blood Pressure 115/70 138/70 Pulse Oximetry 9
[2021-12-07] MEDS: MAG HYDROX/AL HYDROX/SIMETH 30 ML UDC PO (14:13)
[2021-12-07 16:00] VITALS: BP 120/70; PULSE 60; RESP 18; TEMP 36.9; O2SAT 100
--- NOTE | 2021-12-07 17:43 | PM.TDS ---
Transfer Discharge Sum: Prov Provider Date of admission: 12/03/21 08:36 Primary care physician: Samantha Jackson, Admitting clinician: Jluis Whitt MD Consults: 12/02/21 Consult to Physician Routine Comment: Consulting Provider: Herb Monroe Reason for consultation: GI bleed Has provider been notified: Yes Transfer Discharge Sum: Med Medications Active and Home Medications: Home Medications omeprazole 40 mg capsule,delayed release 40 mg PO DAILY #90 cap 09/09/20 [Rx Confirmed 12/03/21] gabapentin 100 mg PO QID 12/02/21 [History Confirmed 12/03/21] levothyroxine 50 mcg PO DAILY 12/03/21 [History Confirmed 12/03/21] lorazepam 0.5 mg PO TID PRN 12/03/21 [History Confirmed 12/03/21] naloxegol [Movantik] 25 mg PO DAILY 12/03/21 [History Confirmed 12/03/21] oxybutynin chloride 15 mg PO DAILY 12/03/21 [History Confirmed 12/03/21] simvastatin 40 mg PO DAILY 12/03/21 [History Confirmed 12/03/21] umeclidinium [Incruse Ellipta] 62.5 mcg INHALATION DAILY 12/03/21 [History Confirmed 12/03/21] Active Medications Al Hydrox/Mg Hydrox/Simethicone (Mag Hydrox/Al Hydrox/Simeth 30 Ml Udc) 30 ml PO Q6H PRN PRN Reason: Indigestion Last Admin: 12/07/21 14:13 Dose: 30 ml Documented by: Gabapentin (Gabapentin 100 Mg Capsule) 200 mg PO TID [facility] Last Admin: 12/07/21 16:27 Dose: 200 mg Documented by: Dextrose/Sodium Chloride (Dextrose 5% Sodium Chloride 0.45%) 1,000 mls @ 65 mls/hr IV CONT .[id number] [facility] [place] Last Admin: 12/06/21 18:15 Dose: 65 mls/hr Documented by: Ceftriaxone Sodium/Dextrose (Rocephin 1 Gm/D5w 50 Ml) 1 gm in 50 mls @ 100 mls/hr IVPB Q24H [facility] [place] Last Admin: 12/07/21 10:50 Dose: 100 mls/hr Documented by: Doxycycline Hyclate (Vibramycin 100 Mg/Ns 100 Ml) 100 mg in 100 mls @ 100 mls/hr IVPB Q12HR [facility] [place] Last Infusion: 12/07/21 10:50 Dose: Infused Documented by: Levothyroxine Sodium (Levothyroxine Sodium 50 Mcg Tablet) 50 mcg PO DAILY@0630 [facility] [place] Last Admin: 12/07/21 05:59 Dose: 50 mcg Documented by: Lidocaine (Lidocaine 5% Patch) 3 patch TRANSDERM DAILY [facility] [place] Last Admin: 12/06/21 10:24 Dose: 1 patch Documented by: Lorazepam (Lorazepam (*Crx) 0.5 Mg Tablet) 0.25 mg PO TID PRN PRN Reason: anxiety Last Admin: 12/07/21 15:33 Dose: 0.25 mg Documented by: Miconazole Nitrate (Miconazole 2% Antifungal Ointment 56 Gm) 1 applic TOPICAL Q12HR [facility] [place] Midodrine (Midodrine Hcl 10 Mg Tablet) 10 mg PO TID [facility] [place] Last Admin: 12/07/21 16:27 Dose: 10 mg Documented by: Non-Formulary Medication (Naloxegol [Movantik]) 25 mg PO DAILY [facility] [place] Stop: 01/03/22 08:59 Non-Formulary Medication (Omeprazole) 40 mg PO DAILY [facility] [place] Stop: 01/03/22 08:59 Ondansetron HCl (Ondansetron Inj 4 Mg/2 Ml Vial) 4 mg IV PUSH Q6H PRN PRN Reason: Nausea And Vomiting Oxybutynin Chloride (Oxybutynin Chloride Xl 5 Mg Tab.Er.24) 15 mg PO DAILY [facility] [place] Last Admin: 12/07/21 08:03 Dose: 15 mg Documented by: Pantoprazole Sodium (Pantoprazole 40 Mg Tablet) 40 mg PO Q12HR [facility] [place] Last Admin: 12/07/21 08:03 Dose: 40 mg Documented by: Simvastatin (Simvastatin 20 Mg Tablet) 40 mg PO DAILY [facility] [place] Last Admin: 12/07/21 08:03 Dose: 40 mg Documented by: Sucralfate (Sucralfate Susp 100 Mg/Ml 10 Ml [facility]) 1,000 mg PO ACHS [facility] Last Admin: 12/07/21 16:27 Dose: 1,000 mg Documented by: Umeclidinium [place] (Umeclidinium [place] 62.5 Mcg Ellipta) 1 puff INHALATION DAILY@0800 [facility] [place] Last Admin: 12/07/21 09:19 Dose: 1 puff Documented by: Transfer Discharge Sum: Hosp Hospital Course Hospital course: Hanna Rai is a 76 year old female Time Spent with Patient Time attestation: Total time spent providing and/or coordinating transfer services: DS: Data Data Completed and Pending Completed studies during hospitalization: Pending at discharge 12/03/21 19:22 Surgical [PTH] Routine Labs on day of discharge: Labs from last 24 hours 12/07/21 12/07/21 05:48 05:41 WBC 16.9 H RBC 3.70 L Hgb 12.3 Hct 37.7 MCV 101.9 H
[2021-12-07 20:00] VITALS: PULSE 60; RESP 18; O2SAT 100
[2021-12-07 22:00] VITALS: BP 125/68; PULSE 67; RESP 20; TEMP 36.4; O2SAT 98
[2021-12-07] MEDS: DEXTROSE 5%/0.45% SOD CHL 1,000 ML 65 ML IV CONT (22:07)
[2021-12-08] MEDS: LEVOTHYROXINE SODIUM 50 MCG TABLET PO (05:41)
[2021-12-08] MEDS: SUCRALFATE SUSP 100 MG/ML 10 ML UDC 1000 MG PO ×4 (05:41→20:21)
[2021-12-08 06:00] VITALS: BP 101/57; PULSE 75; RESP 20; TEMP 36.6; O2SAT 98
[2021-12-08] MEDS: LORazepam (*CRX) 0.5 MG TABLET 0.25 MG PO ×2 (06:37→18:51)
[2021-12-08] MEDS: UMECLIDINIUM BROMIDE 62.5 MCG ELLIPTA 1 PUFF INHALATION (09:40)
[2021-12-08 09:50] VITALS: O2SAT 95
[2021-12-08] MEDS: MAGNESIUM SULF 2 GM/WATER 50ML 2 GM/50 ML BAG IVPB (09:50)
[2021-12-08] MEDS: GABAPENTIN 100 MG CAPSULE 200 MG PO ×3 (09:51→17:10)
[2021-12-08] MEDS: MAGNESIUM OXIDE 400 MG TABLET PO (09:51)
[2021-12-08] MEDS: LIDOCAINE 5% PATCH 3 PATCH TRANSDERM (09:51)
[2021-12-08] MEDS: PANTOPRAZOLE 40 MG TABLET PO ×2 (09:52→20:21)
[2021-12-08] MEDS: SIMVASTATIN 20 MG TABLET 40 MG PO (09:52)
[2021-12-08] MEDS: MIDODRINE HCL 10 MG TABLET PO ×3 (09:52→17:10)
[2021-12-08] MEDS: DOXYCYCLINE 100 MG/NS 100 ML 100 MG/100 ML BAG IVPB ×2 (10:58→20:20)
[2021-12-08 11:05] LABS: Anion Gap 7 mmol/L (8-16); Blood Urea Nitrogen 7 mg/dL (7-17); Calcium 7.8 mg/dL (8.4-10.2); Carbon Dioxide 18 mmol/L (22-30); Chloride 105 mmol/L (98-107); Estimated Glomerular Filt Rate > 60; Glucose 103 mg/dL (65-110); Potassium 3.2 mmol/L (3.4-5.0); Sodium 130 mmol/L (137-145)
--- NOTE | 2021-12-08 11:19 | PM.IMPN ---
Progress Note: A&P Assessment and Plan (1) Coffee ground emesis: Code(s): K92.0 - Hematemesis Status: Acute Assessment and Plan: Associated with acute blood loss anemia Status post EGD on 12/03/2021 Ulcerative esophagitis. Non-erosive gastritis. 5 cm hiatal hernia. Gastric biopsies done PPI and Carafate GI following Follow-up on the result of H pylori and biopsy Clear liquid diet Monitor H&H transfuse if hemoglobin below 7 Colonoscopy as outpatient (2) Altered mental status: Code(s): R41.82 - Altered mental status, unspecified Status: Acute Assessment and Plan: Most likely related to acute metabolic encephalopathy resolved secondary to GI bleed dehydration and acute renal failure Continue to monitor Supportive care (3) GERD (gastroesophageal reflux disease): Code(s): K21.9 - Gastro-esophageal reflux disease without esophagitis Status: Acute Assessment and Plan: Currently on PPI (4) Extremity cyanosis: Code(s): R23.0 - Cyanosis Status: Acute Assessment and Plan: CT angiogram of right lower extremity resolved most likely worsening of severe peripheral vascular disease worsened by GI bleed Monitor closely neurovascular check follow-up with PCP and vascular surgeon as outpatient Patient had GI bleed not candidate for antiplatelet pending for final recommendation of GI regarding when to start antiplatelet No sign of acute ischemia on daily exam No change in neurovascular check I discussed with the patient patient verbalized understanding plan of care (5) STACEY (acute kidney injury): Code(s): N17.9 - Acute kidney failure, unspecified Status: Acute Assessment and Plan: Likely to be pre renal azotemia BUN and creatinine trending down Continue to monitor Resolved (6) COPD (chronic obstructive pulmonary disease): Code(s): J44.9 - Chronic obstructive pulmonary disease, unspecified Status: Acute Assessment and Plan: Patient is not actively wheezing Continue to monitor Continue home meds (7) Pneumonia: Code(s): J18.9 - Pneumonia, unspecified organism Status: Acute Assessment and Plan: Associated with leukocytosis present on admission continue IV antibiotics culture negative so far Anticipate discharge in 1-2 days since patient tolerated diet and hemodynamic improved with blood pressure stabilization probably home with home Subjective Date/time seen: 12/07/21 11:19 12/07/2021 interval history: 76-year-old female presented with hematemesis had a EGD it showed Erosive esophagitis patient is being treated with PPI and Carafate patient clinical symptoms have improved her hemoglobin is trending slightly up, , will continue to monitor her hemoglobin, also concerning for pneumonia repeat x-ray on 12/05 showed no cardiopulmonary process will deescalate antibiotic, will stop ceftriaxone and continue doxycycline, patient was continue to complain burning pain and right lower extremity to further evaluate patient had a JORGE L which showed severe vascular disease with ratio of 0.18, I called vascular surgeon and spoke with Dr. Hooper at [facility] and patient is accepted for transfer pending available of the bed, will continue to monitor and further recommendation to follow. Review of Systems Review of Systems: All systems reviewed & are unremarkable except as noted in HPI and below ROS unobtainable: Yes unobtainable due to mental status (Delirious) Exam Narrative: Patient is comfortable, NAD HEENT: eyes are clear and none icteric LUNGS: normal respiratory effort ABD: not distended Lower extremities: no edema, right lower extremity and foot appears slightly atrophied and tender to touch. SKIN: nonjaundiced Neuro: grossly intact. Objective Data Vital Signs Vital Signs: Vital Signs - 24 hr 12/07/21 16:00 12/07/21 20:00 12/07/21 22:00 Temperature 98.5 F 97.6 F Pulse Rate 60
--- NOTE | 2021-12-08 15:17 | PM.IMPN ---
Progress Note: A&P Assessment and Plan (1) Coffee ground emesis: Code(s): K92.0 - Hematemesis Status: Acute Assessment and Plan: Associated with acute blood loss anemia Status post EGD on 12/03/2021 Ulcerative esophagitis. Non-erosive gastritis. 5 cm hiatal hernia. Gastric biopsies done PPI and Carafate GI following Follow-up on the result of H pylori and biopsy Clear liquid diet Monitor H&H transfuse if hemoglobin below 7 Colonoscopy as outpatient (2) Altered mental status: Code(s): R41.82 - Altered mental status, unspecified Status: Acute Assessment and Plan: Most likely related to acute metabolic encephalopathy resolved secondary to GI bleed dehydration and acute renal failure Continue to monitor Supportive care (3) GERD (gastroesophageal reflux disease): Code(s): K21.9 - Gastro-esophageal reflux disease without esophagitis Status: Acute Assessment and Plan: Currently on PPI (4) Extremity cyanosis: Code(s): R23.0 - Cyanosis Status: Acute Assessment and Plan: CT angiogram of right lower extremity resolved most likely worsening of severe peripheral vascular disease worsened by GI bleed Monitor closely neurovascular check follow-up with PCP and vascular surgeon as outpatient Patient had GI bleed not candidate for antiplatelet pending for final recommendation of GI regarding when to start antiplatelet No sign of acute ischemia on daily exam No change in neurovascular check I discussed with the patient patient verbalized understanding plan of care (5) STACEY (acute kidney injury): Code(s): N17.9 - Acute kidney failure, unspecified Status: Acute Assessment and Plan: Likely to be pre renal azotemia BUN and creatinine trending down Continue to monitor Resolved (6) COPD (chronic obstructive pulmonary disease): Code(s): J44.9 - Chronic obstructive pulmonary disease, unspecified Status: Acute Assessment and Plan: Patient is not actively wheezing Continue to monitor Continue home meds (7) Pneumonia: Code(s): J18.9 - Pneumonia, unspecified organism Status: Acute Assessment and Plan: Associated with leukocytosis present on admission continue IV antibiotics culture negative so far Anticipate discharge in 1-2 days since patient tolerated diet and hemodynamic improved with blood pressure stabilization probably home with home Subjective Date/time seen: 12/08/21 15:17 12/08/2021 interval history: 76-year-old female presented with hematemesis had a EGD it showed Erosive esophagitis patient is being treated with PPI and Carafate patient clinical symptoms have improved her hemoglobin is trending slightly up, , will continue to monitor her hemoglobin, also concerning for pneumonia repeat x-ray on 12/05 showed no cardiopulmonary process will deescalate antibiotic, will stop ceftriaxone and continue doxycycline, patient was continue to complain burning pain and right lower extremity to further evaluate patient had a JORGE L which showed severe vascular disease with ratio of 0.18, I called vascular surgeon and spoke with Dr. Hooper at [facility] and patient is accepted for transfer pending available of the bed, will continue to monitor and further recommendation to follow.Patient remains clinically stable. her hemoglobin is stable, patient states the pain in her right lower extremity is improving, still waiting for transfer at [facility], will continue to monitor Review of Systems Review of Systems: All systems reviewed & are unremarkable except as noted in HPI and below Exam Narrative: Patient is comfortable, NAD HEENT: eyes are clear and none icteric LUNGS: normal respiratory effort ABD: not distended Lower extremities: no edema, right lower extremity and foot appears slightly atrophied and tender to touch. SKIN: nonjaundiced Neuro: grossly intact. Objecti
[2021-12-08 15:20] VITALS: BP 143/72; PULSE 64; RESP 14; TEMP 36.2; O2SAT 100
[2021-12-08] MEDS: DEXTROSE 5%/0.45% SOD CHL 1,000 ML 65 ML IV CONT (18:49)
[2021-12-08 20:00] VITALS: O2SAT 100
[2021-12-08 22:00] VITALS: BP 90/59; PULSE 68; RESP 16; TEMP 36.2; O2SAT 100
[2021-12-09 00:37] VITALS: BP 103/50
[2021-12-09 06:00] VITALS: BP 112/58; PULSE 73; RESP 16; TEMP 36.3; O2SAT 97
[2021-12-09] MEDS: LEVOTHYROXINE SODIUM 50 MCG TABLET PO (06:20)
[2021-12-09] MEDS: SUCRALFATE SUSP 100 MG/ML 10 ML UDC 1000 MG PO ×4 (06:20→20:40)
[2021-12-09 06:31] VITALS: PULSE 74; RESP 20
[2021-12-09] MEDS: UMECLIDINIUM BROMIDE 62.5 MCG ELLIPTA 1 PUFF INHALATION (06:31)
[2021-12-09 07:05] LABS: Magnesium 1.9 mg/dL (1.6-2.3)
[2021-12-09 08:30] LABS: Anion Gap 6 mmol/L (8-16); Blood Urea Nitrogen 4 mg/dL (7-17); Calcium 7.9 mg/dL (8.4-10.2); Carbon Dioxide 19 mmol/L (22-30); Chloride 109 mmol/L (98-107); Estimated Glomerular Filt Rate > 60; Glucose 90 mg/dL (65-110); Potassium 3.3 mmol/L (3.4-5.0); Sodium 134 mmol/L (137-145)
[2021-12-09] MEDS: DOXYCYCLINE 100 MG/NS 100 ML 100 MG/100 ML BAG IVPB (08:50)
[2021-12-09] MEDS: MAGNESIUM OXIDE 400 MG TABLET PO (08:51)
[2021-12-09] MEDS: SIMVASTATIN 20 MG TABLET 40 MG PO (08:52)
[2021-12-09] MEDS: MIDODRINE HCL 10 MG TABLET PO ×3 (08:52→16:50)
[2021-12-09] MEDS: GABAPENTIN 100 MG CAPSULE 200 MG PO ×3 (08:52→16:50)
[2021-12-09] MEDS: PANTOPRAZOLE 40 MG TABLET PO ×2 (08:52→20:40)
[2021-12-09] MEDS: LIDOCAINE 5% PATCH 3 PATCH TRANSDERM (08:52)
[2021-12-09] MEDS: LORazepam (*CRX) 0.5 MG TABLET 0.25 MG PO ×2 (09:56→18:47)
--- NOTE | 2021-12-09 11:06 | PM.IMPN ---
Progress Note: A&P Assessment and Plan (1) Coffee ground emesis: Code(s): K92.0 - Hematemesis Status: Acute Assessment and Plan: Associated with acute blood loss anemia Status post EGD on 12/03/2021 Ulcerative esophagitis. Non-erosive gastritis. 5 cm hiatal hernia. Gastric biopsies done PPI and Carafate GI following Follow-up on the result of H pylori and biopsy Clear liquid diet Monitor H&H transfuse if hemoglobin below 7 Colonoscopy as outpatient (2) Altered mental status: Code(s): R41.82 - Altered mental status, unspecified Status: Acute Assessment and Plan: Most likely related to acute metabolic encephalopathy resolved secondary to GI bleed dehydration and acute renal failure Continue to monitor Supportive care (3) GERD (gastroesophageal reflux disease): Code(s): K21.9 - Gastro-esophageal reflux disease without esophagitis Status: Acute Assessment and Plan: Currently on PPI (4) Extremity cyanosis: Code(s): R23.0 - Cyanosis Status: Acute Assessment and Plan: CT angiogram of right lower extremity resolved most likely worsening of severe peripheral vascular disease worsened by GI bleed Monitor closely neurovascular check follow-up with PCP and vascular surgeon as outpatient Patient had GI bleed not candidate for antiplatelet pending for final recommendation of GI regarding when to start antiplatelet No sign of acute ischemia on daily exam No change in neurovascular check I discussed with the patient patient verbalized understanding plan of care (5) STACEY (acute kidney injury): Code(s): N17.9 - Acute kidney failure, unspecified Status: Acute Assessment and Plan: Likely to be pre renal azotemia BUN and creatinine trending down Continue to monitor Resolved (6) COPD (chronic obstructive pulmonary disease): Code(s): J44.9 - Chronic obstructive pulmonary disease, unspecified Status: Acute Assessment and Plan: Patient is not actively wheezing Continue to monitor Continue home meds (7) Pneumonia: Code(s): J18.9 - Pneumonia, unspecified organism Status: Acute Assessment and Plan: Associated with leukocytosis present on admission continue IV antibiotics culture negative so far Anticipate discharge in 1-2 days since patient tolerated diet and hemodynamic improved with blood pressure stabilization probably home with home Subjective Date/time seen: 12/09/21 11:06 12/09/2021 interval history: 76-year-old female presented with hematemesis had a EGD it showed Erosive esophagitis patient is being treated with PPI and Carafate patient clinical symptoms have improved her hemoglobin is trending slightly up, , will continue to monitor her hemoglobin, also concerning for pneumonia repeat x-ray on 12/05 showed no cardiopulmonary process, antibiotic, stopped, patient was continue to complain burning pain and right lower extremity to further evaluate patient had a JORGE L which showed severe vascular disease with ratio of 0.18, I called vascular surgeon and spoke with Dr. Hooper at [facility] and patient is accepted for transfer pending available of the bed, will continue to monitor and further recommendation to follow.Patient remains clinically stable. her hemoglobin is stable, patient states the pain in her right lower extremity is improving, still waiting for transfer at [facility], will continue to monitor. Review of Systems Review of Systems: All systems reviewed & are unremarkable except as noted in HPI and below Exam Narrative: Patient is comfortable, NAD HEENT: eyes are clear and none icteric LUNGS: normal respiratory effort ABD: not distended Lower extremities: no edema, right lower extremity and foot appears slightly atrophied and tender to touch. SKIN: nonjaundiced Neuro: grossly intact. Objective Data Vital Signs Vital Signs: Vital Signs - 24 h
[2021-12-09] MEDS: ACETAMINOPHEN 325 MG TABLET 650 MG PO ×2 (12:47→21:35)
[2021-12-09 14:00] VITALS: BP 100/48; PULSE 60; RESP 16; TEMP 36.3; O2SAT 100
[2021-12-09 19:56] VITALS: BP 129/55; PULSE 60; RESP 18; TEMP 36.3; O2SAT 99
[2021-12-09 20:00] VITALS: O2SAT 99
[2021-12-10 03:19] VITALS: BP 107/52; PULSE 61; RESP 17; TEMP 36.4; O2SAT 97
[2021-12-10] MEDS: LORazepam (*CRX) 0.5 MG TABLET 0.25 MG PO ×2 (03:29→21:10)
[2021-12-10] MEDS: ACETAMINOPHEN 325 MG TABLET 650 MG PO ×5 (03:29→22:31)
[2021-12-10] MEDS: SUCRALFATE SUSP 100 MG/ML 10 ML UDC 1000 MG PO ×4 (05:44→21:12)
[2021-12-10] MEDS: LEVOTHYROXINE SODIUM 50 MCG TABLET PO (05:44)
[2021-12-10 06:27] LABS: Hematocrit 29.2 % (37.0-47.0); Hemoglobin 9.3 g/dL (12.0-15.0); Mean Corpuscular HGB Conc 31.8 g/dl (32-36); Mean Corpuscular Hemoglobin 33.3 pg (26-34); Mean Corpuscular Volume 104.7 fl (80-100); Mean Platelet Volume 10.1 fl (7.4-10.4); Platelet Count Result 403 k/mm3 (150-375); Red Blood Count 2.79 M/mm3 (4.2-5.4); Red Cell Distribution Width 13.7 % (11.5-14.5); White Blood Count 15.7 K/mm3 (4.5-10.0)
[2021-12-10 06:46] LABS: Anion Gap 5 mmol/L (8-16); Blood Urea Nitrogen 7 mg/dL (7-17); Carbon Dioxide 20 mmol/L (22-30); Chloride 107 mmol/L (98-107); Estimated Glomerular Filt Rate > 60; Glucose 81 mg/dL (65-110); Magnesium 1.9 mg/dL (1.6-2.3); Potassium 3.6 mmol/L (3.4-5.0); Sodium 132 mmol/L (137-145)
[2021-12-10] MEDS: GABAPENTIN 100 MG CAPSULE 200 MG PO ×3 (08:09→16:34)
[2021-12-10] MEDS: PANTOPRAZOLE 40 MG TABLET PO ×2 (08:10→21:13)
[2021-12-10] MEDS: MIDODRINE HCL 10 MG TABLET PO ×3 (08:10→16:34)
[2021-12-10] MEDS: SIMVASTATIN 20 MG TABLET 40 MG PO (08:10)
[2021-12-10] MEDS: MAGNESIUM OXIDE 400 MG TABLET PO (08:10)
[2021-12-10] MEDS: LIDOCAINE 5% PATCH 3 PATCH TRANSDERM (08:10)
--- NOTE | 2021-12-10 11:27 | PM.IMPN ---
Progress Note: A&P Assessment and Plan (1) Coffee ground emesis: Code(s): K92.0 - Hematemesis Status: Acute Assessment and Plan: Associated with acute blood loss anemia Status post EGD on 12/03/2021 Ulcerative esophagitis. Non-erosive gastritis. 5 cm hiatal hernia. Gastric biopsies done PPI and Carafate GI following Follow-up on the result of H pylori and biopsy Clear liquid diet Monitor H&H transfuse if hemoglobin below 7 Colonoscopy as outpatient (2) Altered mental status: Code(s): R41.82 - Altered mental status, unspecified Status: Acute Assessment and Plan: Most likely related to acute metabolic encephalopathy resolved secondary to GI bleed dehydration and acute renal failure Continue to monitor Supportive care (3) GERD (gastroesophageal reflux disease): Code(s): K21.9 - Gastro-esophageal reflux disease without esophagitis Status: Acute Assessment and Plan: Currently on PPI (4) Extremity cyanosis: Code(s): R23.0 - Cyanosis Status: Acute Assessment and Plan: CT angiogram of right lower extremity resolved most likely worsening of severe peripheral vascular disease worsened by GI bleed Monitor closely neurovascular check follow-up with PCP and vascular surgeon as outpatient Patient had GI bleed not candidate for antiplatelet pending for final recommendation of GI regarding when to start antiplatelet No sign of acute ischemia on daily exam No change in neurovascular check I discussed with the patient patient verbalized understanding plan of care (5) STACEY (acute kidney injury): Code(s): N17.9 - Acute kidney failure, unspecified Status: Acute Assessment and Plan: Likely to be pre renal azotemia BUN and creatinine trending down Continue to monitor Resolved (6) COPD (chronic obstructive pulmonary disease): Code(s): J44.9 - Chronic obstructive pulmonary disease, unspecified Status: Acute Assessment and Plan: Patient is not actively wheezing Continue to monitor Continue home meds (7) Pneumonia: Code(s): J18.9 - Pneumonia, unspecified organism Status: Acute Assessment and Plan: Associated with leukocytosis present on admission continue IV antibiotics culture negative so far Anticipate discharge in 1-2 days since patient tolerated diet and hemodynamic improved with blood pressure stabilization probably home with home Subjective Date/time seen: 12/10/21 11:27 12/10/2021 interval history: 76-year-old female presented with hematemesis had a EGD it showed Erosive esophagitis patient is being treated with PPI and Carafate patient clinical symptoms have improved her hemoglobin is trending down to 9.3 from 12.3, , will continue to monitor her hemoglobin, also concerning for pneumonia repeat x-ray on 12/05 showed no cardiopulmonary process, antibiotic, stopped, patient was continue to complain burning pain and right lower extremity to further evaluate patient had a JORGE L which showed severe vascular disease with ratio of 0.18, I called vascular surgeon and spoke with Dr. Hooper at [facility] and patient is accepted for transfer pending available of the bed, will continue to monitor and further recommendation to follow.Patient remains clinically stable. her hemoglobin is stable, patient states the pain in her right lower extremity is improving, still waiting for transfer at [facility], will continue to monitor. Review of Systems Review of Systems: All systems reviewed & are unremarkable except as noted in HPI and below Exam Narrative: Patient is comfortable, NAD HEENT: eyes are clear and none icteric LUNGS: normal respiratory effort ABD: not distended Lower extremities: no edema, right lower extremity and foot appears slightly atrophied and tender to touch. SKIN: nonjaundiced Neuro: grossly intact. Objective Data Vital Signs Vital Signs: Vital Sig
[2021-12-10 11:29] VITALS: PULSE 82; RESP 12
[2021-12-10] MEDS: UMECLIDINIUM BROMIDE 62.5 MCG ELLIPTA 1 PUFF INHALATION (11:29)
[2021-12-10 11:30] VITALS: BP 112/58; PULSE 66; RESP 16; TEMP 36.4; O2SAT 99
[2021-12-10 14:20] VITALS: BP 109/58; PULSE 72; RESP 18; TEMP 36.2; O2SAT 99
[2021-12-10 19:44] VITALS: BP 110/69; PULSE 88; RESP 17; TEMP 36.2; O2SAT 91
[2021-12-10 20:00] VITALS: PULSE 88; RESP 17; O2SAT 91
[2021-12-11 03:40] VITALS: BP 109/57; PULSE 62; RESP 16; TEMP 36.3; O2SAT 99
[2021-12-11] MEDS: SUCRALFATE SUSP 100 MG/ML 10 ML UDC 1000 MG PO ×2 (05:30→10:38)
[2021-12-11] MEDS: LEVOTHYROXINE SODIUM 50 MCG TABLET PO (05:30)
[2021-12-11] MEDS: ACETAMINOPHEN 325 MG TABLET 650 MG PO (05:30)
[2021-12-11 05:41] LABS: Hematocrit 31.7 % (37.0-47.0); Hemoglobin 10.4 g/dL (12.0-15.0); Mean Corpuscular HGB Conc 32.8 g/dl (32-36); Mean Corpuscular Hemoglobin 33.1 pg (26-34); Mean Platelet Volume 10.1 fl (7.4-10.4); Platelet Count Result 463 k/mm3 (150-375); Red Blood Count 3.14 M/mm3 (4.2-5.4); Red Cell Distribution Width 13.6 % (11.5-14.5); White Blood Count 15.3 K/mm3 (4.5-10.0)
[2021-12-11 05:54] LABS: Anion Gap 6 mmol/L (8-16); Blood Urea Nitrogen 9 mg/dL (7-17); Calcium 8.4 mg/dL (8.4-10.2); Carbon Dioxide 21 mmol/L (22-30); Chloride 106 mmol/L (98-107); Estimated Glomerular Filt Rate > 60; Glucose 84 mg/dL (65-110); Magnesium 1.7 mg/dL (1.6-2.3); Potassium 4.1 mmol/L (3.4-5.0); Sodium 133 mmol/L (137-145)
--- NOTE | 2021-12-11 08:07 | PCNWS ---
Weekly nutritional screen. Patient is tolerating current diet with adequate intake. No weight loss reported. No nutritional needs at this time.
[2021-12-11] MEDS: GABAPENTIN 100 MG CAPSULE 200 MG PO ×2 (08:25→12:10)
[2021-12-11] MEDS: PANTOPRAZOLE 40 MG TABLET PO (08:26)
[2021-12-11] MEDS: SIMVASTATIN 20 MG TABLET 40 MG PO (08:26)
[2021-12-11] MEDS: MIDODRINE HCL 10 MG TABLET PO ×2 (08:26→12:11)
[2021-12-11] MEDS: MAGNESIUM OXIDE 400 MG TABLET PO (08:26)
[2021-12-11] MEDS: LIDOCAINE 5% PATCH 3 PATCH TRANSDERM (08:27)
[2021-12-11] MEDS: UMECLIDINIUM BROMIDE 62.5 MCG ELLIPTA 1 PUFF INHALATION (08:50)
[2021-12-11] MEDS: LORazepam (*CRX) 0.5 MG TABLET 0.25 MG PO (09:43)
--- NOTE | 2021-12-11 11:13 | PM.DS ---
DS: Admitting Diagnosis Discharge Date 12/11/2021 Admitting Diagnosis Coffee-ground emesis DS: Discharge Diagnosis Discharge Diagnosis (1) Coffee ground emesis: Code(s): K92.0 - Hematemesis Status: Acute Assessment and Plan: Associated with acute blood loss anemia Status post EGD on 12/03/2021 Ulcerative esophagitis. Non-erosive gastritis. 5 cm hiatal hernia. Gastric biopsies done PPI and Carafate GI following Follow-up on the result of H pylori and biopsy Clear liquid diet Monitor H&H transfuse if hemoglobin below 7 Colonoscopy as outpatient (2) Altered mental status: Code(s): R41.82 - Altered mental status, unspecified Status: Acute Assessment and Plan: Most likely related to acute metabolic encephalopathy resolved secondary to GI bleed dehydration and acute renal failure Continue to monitor Supportive care (3) GERD (gastroesophageal reflux disease): Code(s): K21.9 - Gastro-esophageal reflux disease without esophagitis Status: Acute Assessment and Plan: Currently on PPI (4) Extremity cyanosis: Code(s): R23.0 - Cyanosis Status: Acute Assessment and Plan: CT angiogram of right lower extremity resolved most likely worsening of severe peripheral vascular disease worsened by GI bleed Monitor closely neurovascular check follow-up with PCP and vascular surgeon as outpatient Patient had GI bleed not candidate for antiplatelet pending for final recommendation of GI regarding when to start antiplatelet No sign of acute ischemia on daily exam No change in neurovascular check I discussed with the patient patient verbalized understanding plan of care (5) STACEY (acute kidney injury): Code(s): N17.9 - Acute kidney failure, unspecified Status: Acute Assessment and Plan: Likely to be pre renal azotemia BUN and creatinine trending down Continue to monitor Resolved (6) COPD (chronic obstructive pulmonary disease): Code(s): J44.9 - Chronic obstructive pulmonary disease, unspecified Status: Acute Assessment and Plan: Patient is not actively wheezing Continue to monitor Continue home meds (7) Pneumonia: Code(s): J18.9 - Pneumonia, unspecified organism Status: Acute Assessment and Plan: Associated with leukocytosis present on admission continue IV antibiotics culture negative so far Anticipate discharge in 1-2 days since patient tolerated diet and hemodynamic improved with blood pressure stabilization probably home with home DS: Summary Hospital Course Reason for hospitalization: Chief Complaint: Coffee-ground emesis Narrative: This is a 76-year-old female with past medical history significant for COPD/emphysema, hypothyroidism, gastroesophageal reflux disease. Patient comes transferred from outside hospital due to episode of coffee-ground emesis. According to medical records patient was brought for evaluation due to altered mental status, nausea, vomiting, diarrhea, coffee-ground emesis. Preliminary workup was significant for positive occult blood. Creatinine 2.2 BUN 48. The time of my visit patient was unable to give much history. Patient is being admitted for further evaluation management and treatment. Hospital Course: 76-year-old female presented with hematemesis had a EGD it showed Erosive esophagitis patient is being treated with PPI and Carafate patient clinical symptoms have improved her hemoglobin is trending down to 9.3 from 12.3, , will continue to monitor her hemoglobin, also concerning for pneumonia repeat x-ray on 12/05 showed no cardiopulmonary process, antibiotic, stopped, patient was continue to complain burning pain and right lower extremity to further evaluate patient had a JORGE L which showed severe vascular disease with ratio of 0.18, I called vascular surgeon and spoke with Dr. Hidalgo at [facility] and patient is accepted for transfer pending available of the bed, w
[2021-12-11 14:04] VITALS: BP 130/64; PULSE 64; RESP 18; TEMP 36.2; O2SAT 98
== END 2021-12-11 14:26 | disposition home or self-care (01) | DRG 380 ==
PROVIDERS: Internal Medicine; Admitting Provider Internal Medicine; PCP Family Medicine; Referring Provider Internal Medicine Gastroenterology; Visit Provider Family Medicine
PROC: 0DJ08ZZ Inspection of Upper Intestinal Tract, Via Natural or Artificial Opening Endoscopic (ICD-10-PCS; CPT 43235; principal; 2021-12-03 18:30)
DX: K22.11 Ulcer of esophagus with bleeding (principal); G93.41 Metabolic encephalopathy; J18.9 Pneumonia, unspecified organism; D62 Acute posthemorrhagic anemia; N17.9 Acute kidney failure, unspecified; J44.0 Chronic obstructive pulmonary disease with (acute) lower respiratory infection; I73.9 Peripheral vascular disease, unspecified; E86.0 Dehydration; K21.9 Gastro-esophageal reflux disease without esophagitis; D75.89 Other specified diseases of blood and blood-forming organs; K29.50 Unspecified chronic gastritis without bleeding; K44.9 Diaphragmatic hernia without obstruction or gangrene; F41.9 Anxiety disorder, unspecified; E03.9 Hypothyroidism, unspecified; M81.0 Age-related osteoporosis without current pathological fracture; F17.210 Nicotine dependence, cigarettes, uncomplicated; R23.0 Cyanosis; Z90.49 Acquired absence of other specified parts of digestive tract; Z90.710 Acquired absence of both cervix and uterus
CPT/HCPCS: 36415; 36430; 71045; 73706; 80048; 80053; 82948; 83605; 83735; 84100; 85014; 85018; 85025; 85027; 86850; 86900; 86901; 86920; 88305; 88342; 93922; 94640; 96365; 96366; 96368; 96375; A9270; C9113; G0378; J0696; J2704; J2930; J3475; J7030; J7050; J7060; J7120; P9016; Q9967

== ENCOUNTER 2021-12-27 14:46 | Inpatient (IN) | payer MEDICARE, MEDICAID, SELFPAY ==
[2021-12-27] VITALS (28 sets, daily range): BP systolic 95–161; BP diastolic 75–96; PULSE 102–121; RESP 12–22; TEMP 37.2; O2SAT 95–100
--- NOTE | ~2021-12-27 | CT_ITS ---
EXAMINATION: CT abdomen pelvis wo con DATE: 12/27/2021 16:37 INDICATION: Abdominal pain. Vomiting. TECHNIQUE: Computed tomography (CT) of the abdomen and pelvis was performed without intravenous contr ast. Automated exposure control and iterative reconstruction technique were employed. The dose-length product was 174.98 mGy-cm. COMPARISON: CT abdomen and pelvis 12/02/2021 FINDINGS: The visualized portions of the lung bases demonstrate mild atelectasis. There are trace ple ural effusions. The heart size is normal. There are coronary artery calcifications. No pericardial ef fusion. There is a moderate-sized sliding hiatal hernia. The liver is normal. Calcifications in the s pleen are consistent with old granulomatous disease. The pancreas, adrenal glands, and kidneys are no rmal. There is diverticulosis of the colon without evidence of diverticulitis. The appendix is not vi sualized. There is calcified atherosclerosis of the aorta and many of the other arteries. There are n o pathologically enlarged lymph nodes. There is no free intraperitoneal fluid. There is a 3.1 cm fusi form aneurysm of infrarenal aorta. There is internal fixation of left femur. There is thoracolumbar l evoscoliosis and severe spondylosis. IMPRESSION: 1. 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 2. Moderate-sized sliding hiatal hernia. Reviewed, dictated and finalized at location A.
--- NOTE | 2021-12-27 15:04 | ED.GENADULT ---
HPI - General Adult General Chief complaint: Nausea/Vomiting/Diarrhea Stated complaint: coffee ground emsis Time Seen by Provider: 12/27/21 14:59 Source: RN notes reviewed History of Present Illness HPI narrative: Patient presents emergency department from home for nausea vomiting. Patient states she has had several episodes of nausea vomiting since last night states has been coffee-ground in color patient states has been associated with abdominal pain in the epigastric region does not radiate described as burning in nature. She denies any fevers or chills chest pain shortness of breath diarrhea or any other symptoms. Patient was recently admitted to the hospital for erosive esophagitis and is currently on PPI Related Data Home Medications Medication Instructions Recorded Confirmed levothyroxine 50 mcg tablet 50 mcg PO DAILY 12/03/21 12/03/21 lorazepam 0.5 mg tablet 0.5 mg PO TID PRN anxiety 12/03/21 12/03/21 naloxegol 25 mg tablet (Movantik) 25 mg PO DAILY 12/03/21 12/03/21 oxybutynin chloride 5 mg tablet 15 mg PO DAILY 12/03/21 12/03/21 simvastatin 40 mg tablet 40 mg PO DAILY 12/03/21 12/03/21 umeclidinium 62.5 mcg/actuation 62.5 mcg inhalation DAILY 12/03/21 12/03/21 blister powder for inhalation (Incruse Ellipta) oxycodone-acetaminophen 5 mg-325 1 tablet PO TID PRN Pain 12/09/21 12/09/21 mg tablet Allergies Allergy/AdvReac Type Severity Reaction Status Date / Time codeine Allergy Mild THROAT Verified 12/27/21 15:42 CLOSES Sulfa (Sulfonamide Allergy Unknown Unknown Verified 12/27/21 15:42 Antibiotics) Review of Systems Review of Systems: Gen.: Denies fevers or chills ENT: Denies congestion Respiratory: Denies shortness of breath or cough CV: Denies chest pain or palpitations GI: See HPI denies burning, urgency, frequency or hematuria Musculoskeletal: Denies back pain or muscle pain Neuro: Denies numbness, tingling, weakness or focal weakness Skin: Denies rash Except as documented, all other systems reviewed and negative PMFSH Past Medical History Medical History Acute blood loss anemia Anxiety COPD (chronic obstructive pulmonary disease) Erosive esophagitis GERD (gastroesophageal reflux disease) Hypothyroidism Onychomycosis Osteoporosis Peripheral vascular disease Ulcerative colitis Urge incontinence Surgical History Surgical History History of cholecystectomy History of hysterectomy History of ovarian resection Hx of tonsillectomy Family History Family History (Updated 12/03/21 @ 00:17 by Augusta Rubalcava RN) Father Skin cancer Father Lung cancer Social History Social History Smoking packs per day: 0.5 Smoking cigarettes per day: 10.0 Years smoked: 12 Smoking pack-years: 6.00 Smoking status: Current every day smoker Tobacco type: cigarettes Alcohol intake: never Substance use: never Substance use type: does not use Spiritual care concerns: No Exam Narrative: APPEARANCE: No acute distress, nontoxic, resting in bed HEENT: Normocephalic, atraumatic, OMM RESPIRATORY: No respiratory distress, clear to auscultation bilaterally with no rhonchi wheezing or rales CARDIOVASCULAR: RRR s murmur ABDOMINAL: Soft nondistended tender palpation epigastric, right upper quadrant left lower quadrant no tenderness right lower quadrant left lower quadrant no rebound or guarding Rectal, hemorrhoids present no active bleeding minimal stool in rectal vault that is Hemoccult negative MUSCULOSKELETAl: Moves all extremities. No clubbing, cyanosis or edema. NEURO: Awake and alert. Following commands, speech normal, no focal deficits SKIN:: Warm, dry. Normal Color PSYCHIATRIC: Normal affect/mood Course Vital Signs Vital signs: Vital Signs Temperature 99.0 F 12/27/21 14:53 Pulse Rate 115 H 06
--- NOTE | 2021-12-27 15:37 | PC.NURSE ---
multiple attempts for blood draw without success. phlebotomy called and will come up to draw labs.
--- NOTE | 2021-12-27 15:55 | ECG_ITS ---
Measurements Intervals [place] Rate: 107 P: 53 MN: 165 QRS: 33 QRSD: 78 T: 65 QT: 368 QTc: 492 Interpretive Statements SINUS TACHYCARDIA COMPARED TO ECG 12/02/2021 17:38:15 SINUS TACHYCARDIA NOW PRESENT Electronically Signed On 12-27-2021 21:40:25 CDT by Omar Aguilar M.D.
[2021-12-27] MEDS: SODIUM CHLORIDE 0.9% IV 1,000 ML 999 ML IV CONT (16:00)
[2021-12-27 16:15] LABS: Basophils Absolute Auto 0.1 K/mm3 (0.0-0.1); Basophils Percent Auto 0.3 % (0.2-1.2); Hematocrit 31.6 % (37.0-47.0); Hemoglobin 10.4 g/dL (12.0-15.0); Immature Granulocyte Absolute 0.12 K/mm3 (0.00-0.031); Immature Granulocyte Percent A 0.7 % (0-0.5); Lymphocytes Absolute Auto 1.96 K/mm3 (0.9-3.2); Lymphocytes Percent Auto 11.3 % (18.3-44.2); Mean Corpuscular HGB Conc 32.9 g/dl (32-36); Mean Corpuscular Hemoglobin 33.4 pg (26-34); Mean Corpuscular Volume 101.6 fl (80-100); Mean Platelet Volume 8.7 fl (7.4-10.4); Monocytes Absolute Auto 0.9 K/mm3 (0.1-0.6); Monocytes Percent Auto 5.2 % (2.6-8.5); Neutrophils Absolute Auto 14.4 K/mm3 (1.3-6.7); Neutrophils Percent Auto 82.5 % (45.5-73.1); Platelet Count Result 692 k/mm3 (150-375); Red Blood Count 3.11 M/mm3 (4.2-5.4); Red Cell Distribution Width 13.8 % (11.5-14.5); White Blood Count 17.4 K/mm3 (4.5-10.0)
[2021-12-27 16:24] LABS: Lactic Acid Reflex 2.7 mmol/L (0.7-2.0)
[2021-12-27 16:25] LABS: Alanine Aminotransferase 12 U/L (6-35); Albumin Level 3.7 g/dL (3.5-5.1); Alkaline Phosphatase 117 U/L (38-126); Anion Gap 10 mmol/L (8-16); Aspartate Amino Transferase 23 U/L (14-36); Bilirubin,Total 0.3 mg/dL (0.2-1.3); Blood Urea Nitrogen 32 mg/dL (7-17); Calcium 8.8 mg/dL (8.4-10.2); Carbon Dioxide 28 mmol/L (22-30); Chloride 97 mmol/L (98-107); Estimated Glomerular Filt Rate > 60; Glucose 140 mg/dL (65-110); INR 1.1; Lipase 30 U/L (23-300); Potassium 3.8 mmol/L (3.4-5.0); Prothrombin Time 13.3 Seconds (11.1-14.7); Sodium 135 mmol/L (137-145)
[2021-12-27] MEDS: PANTOPRAZOLE SODIUM IV 40 MG VIAL IV PUSH (17:01)
[2021-12-27] MEDS: SODIUM CHLORIDE 0.9% IV 1,000 ML 80 ML IV CONT (18:12)
[2021-12-27 19:12] LABS: Reflex Lactic Acid Yes or No Add Lactic
--- NOTE | 2021-12-27 20:02 | PM.IMHP ---
H&P: HPI History of Present Illness Date/Time: 12/27/21 20:02 Chief Complaint: Coffee-ground emesis Narrative: This is a 76-year-old female past medical history significant for tobacco dependence, patient is a current everyday smoker of about half pack a day, gastroesophageal reflux disease, COPD/emphysema, peripheral arterial vascular disease, osteoporosis. Patient recently admitted and discharged after she was found to have erosive esophagitis patient also received blood transfusion due to acute blood loss anemia. Patient presents today to the emergency room due to coffee-ground emesis, patient denies any melena and states that her appetite has been good and has been eating well. Preliminary workup has been essentially nonrevealing. Patient has been admitted for further evaluation, management and treatment. Review of Systems Review of Systems: Coffee-ground emesis x1 Constitutional: Constitutional: Denies chills, Denies fever(s), Denies poor appetite and Denies weight loss Eyes: Eyes: Denies change in vision ENT: Denies dysphagia, Denies vertigo, Denies dizziness and Denies odynophagia Cardiovascular: Cardiovascular: Denies chest pain, Denies irregular heart rhythm, Denies lightheadedness, Denies palpitations and Denies dyspnea on exertion Respiratory: Respiratory: Denies chest congestion, Reports cough, Denies excessive phlegm production and Denies dyspnea Gastrointestinal: Gastrointestinal: Denies abdominal pain, Denies melena, Denies hematochezia, Reports coffee ground emesis, Denies dyspepsia, Denies heartburn and Denies diarrhea Genitourinary: Genitourinary: Denies dysuria Musculoskeletal: Musculoskeletal: Denies joint swelling, Denies numbness and Denies tingling Integumentary/Breasts: Skin/Breast: Denies rash Neurologic: Denies focal weakness and Denies Sensory deficit (Neuro) Psychiatric: Psychiatric: Reports no additional psychiatric complaints and Reports as per HPI Endocrine: Endocrine: Denies cold intolerance, Denies flushing, Denies heat intolerance, Denies polyphagia, Denies polydipsia and Denies palpitations Hematologic/Lymphatic: Hematologic/Lymphatic: Reports no additional hematologic/lymphatic complaints and Reports as per HPI Allergic/Immunologic: Allergic/Immunologic: Reports no additional allergic/immunologic complaints and Reports as per HPI PMF Past Medical History Medical History Acute blood loss anemia Anxiety COPD (chronic obstructive pulmonary disease) Erosive esophagitis GERD (gastroesophageal reflux disease) Hypothyroidism Onychomycosis Osteoporosis Peripheral vascular disease Ulcerative colitis Urge incontinence Surgical History Surgical History History of cholecystectomy History of hysterectomy History of ovarian resection Hx of tonsillectomy Family History Family History Father Skin cancer Father Lung cancer Social History Social History Smoking packs per day: 0.5 Smoking cigarettes per day: 10.0 Years smoked: 12 Smoking pack-years: 6.00 Smoking status: Current every day smoker Tobacco type: cigarettes Second hand tobacco smoke exposure: Yes Alcohol intake: former Substance use: never Substance use type: does not use Spiritual care concerns: No Meds Home Medications and Allergies Home Medications Medication Instructions Recorded Confirmed Type omeprazole 40 mg capsule,delayed 40 mg PO DAILY #90 caps 09/09/20 12/27/21 Rx release levothyroxine 50 mcg tablet 50 mcg PO DAILY 12/03/21 12/27/21 History lorazepam 0.5 mg tablet 0.5 mg PO TID PRN anxiety 12/03/21 12/27/21 History naloxegol 25 mg tablet (Movantik) 25 mg PO DAILY 12/03/21 12/27/21 History simvastatin 40 mg tablet 40 mg PO DAILY 12/03/21 12/03/21 Histor
--- NOTE | 2021-12-27 20:39 | ADMGEN ---
This patient, Hanna Rai, was admitted to [facility] Surg Room 331-02. Patient/family oriented to hospital policies and general routines including ID bracelet, bed and alarms, visiting hours, pain management, procedures, bathroom and other care routines, personal items, smoking policy, room service/diet, and visiting hours. Information on how to activate the Rapid Response Team has been discussed. Patient/Family are encouraged to report perceived risks to care and to ask questions if they do not understand what they are told or what they should do.
[2021-12-27 21:19] LABS: Hematocrit 31.7 % (37.0-47.0); Hemoglobin 9.7 g/dL (12.0-15.0)
[2021-12-27 21:19] LABS: SARS-CoV-2 RNA PCR Negative
[2021-12-27 21:29] LABS: Lactic Acid 3.2 mmol/L (0.7-2.0)
[2021-12-28] VITALS (15 sets, daily range): BP systolic 91–148; BP diastolic 51–78; PULSE 82–102; RESP 15–18; TEMP 36.6–37.4; O2SAT 95–100; BMI 17.7
[2021-12-28 03:55] LABS: Basophils Absolute Auto 0.1 K/mm3 (0.0-0.1); Basophils Percent Auto 0.7 % (0.2-1.2); Eosinophils Percent Auto 0.2 % (0-4.4); Hematocrit 27.7 % (37.0-47.0); Hemoglobin 8.8 g/dL (12.0-15.0); Immature Granulocyte Absolute 0.04 K/mm3 (0.00-0.031); Immature Granulocyte Percent A 0.3 % (0-0.5); Lymphocytes Absolute Auto 3.71 K/mm3 (0.9-3.2); Lymphocytes Percent Auto 28.1 % (18.3-44.2); Mean Corpuscular HGB Conc 31.8 g/dl (32-36); Mean Corpuscular Hemoglobin 32.7 pg (26-34); Mean Platelet Volume 8.6 fl (7.4-10.4); Monocytes Absolute Auto 1.2 K/mm3 (0.1-0.6); Monocytes Percent Auto 8.9 % (2.6-8.5); Neutrophils Absolute Auto 8.2 K/mm3 (1.3-6.7); Neutrophils Percent Auto 61.8 % (45.5-73.1); Platelet Count Result 530 k/mm3 (150-375); Red Blood Count 2.69 M/mm3 (4.2-5.4); Red Cell Distribution Width 13.9 % (11.5-14.5); White Blood Count 13.2 K/mm3 (4.5-10.0)
[2021-12-28 04:06] LABS: Alanine Aminotransferase 8 U/L (6-35); Alkaline Phosphatase 96 U/L (38-126); Anion Gap 4 mmol/L (8-16); Aspartate Amino Transferase 24 U/L (14-36); Bilirubin,Total 0.3 mg/dL (0.2-1.3); Blood Urea Nitrogen 22 mg/dL (7-17); Calcium 7.7 mg/dL (8.4-10.2); Carbon Dioxide 25 mmol/L (22-30); Chloride 105 mmol/L (98-107); Estimated Glomerular Filt Rate > 60; Glucose 87 mg/dL (65-110); Potassium 3.4 mmol/L (3.4-5.0); Sodium 134 mmol/L (137-145)
--- NOTE | 2021-12-28 07:45 | PM.IMPN ---
Progress Note: A&P Assessment and Plan (1) Coffee ground emesis: Code(s): K92.0 - Hematemesis Status: Acute Assessment and Plan: Reports of nausea and vomiting with coffee ground emesis GI consulted thank you for your help H/H 9.7/31.7 upon admission, currently 8.0/25.6 Trend H/H Q6H Anemia labs EGD scheduled for today. Protonix added (2) Anemia: Code(s): D64.9 - Anemia, unspecified Status: Acute Assessment and Plan: H/H trending down, currently at 8.0/25.6 Anemia labs Looks to be acute blood loss at this time Supplement as indicated Transfuse if Hgb below 7.0 Trend H/H Q6H (3) GERD (gastroesophageal reflux disease): Code(s): K21.9 - Gastro-esophageal reflux disease without esophagitis Status: Acute Assessment and Plan: Continue Protonix (4) COPD (chronic obstructive pulmonary disease): Code(s): J44.9 - Chronic obstructive pulmonary disease, unspecified Status: Acute Assessment and Plan: Chronic problem, not in acute exacerbation Continue home Incruse Ellipta Trend respiratory status Is stable at this time (5) Peripheral vascular disease: Code(s): I73.9 - Peripheral vascular disease, unspecified Status: Acute Assessment and Plan: Looks to be stable No notable swelling or discoloration Continue to trend symptoms (6) Tobacco dependence: Code(s): F17.200 - Nicotine dependence, unspecified, uncomplicated Status: Acute Assessment and Plan: Education given Nicotine patch added Time Spent With Patient Time with patient: Greater than 35 minutes Subjective Date/time seen: 12/28/21 07:45 Interval history: Patient is a 76-year-old female who presented to the ED with complaints of nausea vomiting which was accompanied with coffee-ground emesis. Patient stated that she is feeling a little better today it is very tired. She denies any chest pain shortness of breath, nausea, vomiting, abdominal pain, dizziness, headache. GI has been consulted looks like she is going to go for an EGD today. Patient denies any further bleeding at this time. Patient also denies any pain. Review of Systems Review of Systems: All systems reviewed & are unremarkable except as noted in HPI and below Exam Const: General: cooperative, no acute distress, well developed, alert, awake, Physically active and tired appearing Nutritional Appearance: well nourished Orientation/consciousness: oriented to person, oriented to place, oriented to time and patient oriented x3 Limitations: no limitations HENMT: Head: normal to inspection Ears: hearing grossly normal bilaterally General nose exam: Normal external nose present Mouth: Yes Normal oral and palatal mucosa present, Yes lip normal and Yes tongue normal Teeth and gingiva: abnormal tooth and associated gingiva and poor dentition Eyes: General: appearance normal, both eyes and all related structures Neck: Neck: normal visual inspection, full ROM, trachea midline and supple Chest: Chest palpation & inspection: normal inspection of the chest Resp: Effort & Inspection: normal respiratory effort and able to speak in complete sentences Auscultation: clear to auscultation bilaterally Cardio: Jugular venous distension: no JVD Rate: regular rate Rhythm: regular rhythm Heart sounds: S1 normal heart sound present and S2 normal heart sound present Peripheral pulses: Peripheral pulses 2+ throughout GI: Inspection: normal to inspection GI Palp: Yes Soft to palpation and No Tenderness to palpation present (GI) Auscultation: normal bowel sounds Skin: General skin exam: no rashes or lesions noted and pallor Lesions: no lesions Rashes: no rashes Trauma: no lacerations or abrasions Wounds: no wounds Hair: normal Nails: normal Neuro: General: patient oriented x3, moves all extremities an
--- NOTE | 2021-12-28 07:45 | P.PNIM_ITS ---
Progress Note: A&P Assessment and Plan (1) Coffee ground emesis: Code(s): K92.0 - Hematemesis Status: Acute Assessment and Plan: * Reports of nausea and vomiting with coffee ground emesis * GI consulted thank you for your help * H/H 9.7/31.7 upon admission, currently 8.0/25.6 * Trend H/H Q6H * Anemia labs * EGD scheduled for today. * Protonix added (2) Anemia: Code(s): D64.9 - Anemia, unspecified Status: Acute Assessment and Plan: * H/H trending down, currently at 8.0/25.6 * Anemia labs * Looks to be acute blood loss at this time * Supplement as indicated * Transfuse if Hgb below 7.0 * Trend H/H Q6H (3) GERD (gastroesophageal reflux disease): Code(s): K21.9 - Gastro-esophageal reflux disease without esophagitis Status: Acute Assessment and Plan: * Continue Protonix (4) COPD (chronic obstructive pulmonary disease): Code(s): J44.9 - Chronic obstructive pulmonary disease, unspecified Status: Acute Assessment and Plan: * Chronic problem, not in acute exacerbation * Continue home Incruse Ellipta * Trend respiratory status * Is stable at this time (5) Peripheral vascular disease: Code(s): I73.9 - Peripheral vascular disease, unspecified Status: Acute Assessment and Plan: * Looks to be stable * No notable swelling or discoloration * Continue to trend symptoms (6) Tobacco dependence: Code(s): F17.200 - Nicotine dependence, unspecified, uncomplicated Status: Acute Assessment and Plan: * Education given * Nicotine patch added Time Spent With Patient Time with patient: Greater than 35 minutes Subjective Date/time seen: 12/28/21 07:45 Interval history: Patient is a 76-year-old female who presented to the ED with complaints of nausea vomiting which was accompanied with coffee-ground emesis. Patient stated that she is feeling a little better today it is very tired. She denies any chest pain shortness of breath, nausea, vomiting, abdominal pain, dizziness, headache. GI has been consulted looks like she is going to go for an EGD today. Patient denies any further bleeding at this time. Patient also denies any pain. Review of Systems Review of Systems: All systems reviewed & are unremarkable except as noted in HPI and below Exam Const: General: cooperative, no acute distress, well developed, alert, awake, Physically active and tired appearing Nutritional Appearance: well nourished Orientation/consciousness: oriented to person, oriented to place, oriented to time and patient oriented x3 Limitations: no limitations HENMT: Head: normal to inspection Ears: hearing grossly normal bilaterally General nose exam: Normal external nose present Mouth: Yes Normal oral and palatal mucosa present, Yes lip normal and Yes tongue normal Teeth and gingiva: abnormal tooth and associated gingiva and poor dentition Eyes: General: appearance normal, both eyes and all related structures Neck: Neck: normal visual inspection, full ROM, trachea midline and supple Chest: Chest palpation & inspection: normal inspection of the chest Resp: Effort & Inspection: normal respiratory effort and able to speak in complete sentences Auscultation: clear to auscultation bilaterally Cardio:
[2021-12-28] MEDS: UMECLIDINIUM BROMIDE 62.5 MCG ELLIPTA 1 PUFF INHALATION (08:14)
[2021-12-28 08:50] LABS: Hematocrit 25.6 % (37.0-47.0)
[2021-12-28] MEDS: SODIUM CHLORIDE 0.9% IV 1,000 ML 80 ML IV CONT (08:50)
[2021-12-28] MEDS: MAGNESIUM OXIDE 400 MG TABLET PO (08:51)
[2021-12-28] MEDS: GABAPENTIN 100 MG CAPSULE 200 MG PO ×3 (08:51→17:29)
[2021-12-28] MEDS: LEVOTHYROXINE SODIUM 50 MCG TABLET PO (08:51)
[2021-12-28] MEDS: PANTOPRAZOLE SODIUM IV 40 MG VIAL IV PUSH (08:51)
[2021-12-28 09:35] LABS: Transferrin 163 mg/dL (206-381)
--- NOTE | 2021-12-28 09:50 | PCCCNOTE ---
On 12/28/21, the student, [Lauren Webster], provided care and completed [facility] documentation on this patient. I have reviewed the student's documentation and agree with the findings.
[2021-12-28 10:36] LABS: Folic Acid 8.7 ng/mL (2.76->20)
--- NOTE | 2021-12-28 10:42 | WPDGICN ---
Assessment and Plan Assessment and plan (1) Coffee ground emesis: Code(s): K92.0 - Hematemesis Status: Acute Assessment and Plan: Patient admitted with coffee-ground emesis suggesting upper GI bleeding. Along with blood loss anemia. She has a history of erosive esophagitis. Now on Carafate and PPI therapy. Plan to continue more intense PPI therapy Carafate will be placed on hold on EGD will be obtained to assess for continued GI blood loss. (2) Acute blood loss anemia: Code(s): D62 - Acute posthemorrhagic anemia Status: Acute Assessment and Plan: Follow hemoglobin transfuse only if necessary. Continue to monitor coffee-ground nature suggests this is not active bleeding. (3) Peripheral vascular disease: Code(s): I73.9 - Peripheral vascular disease, unspecified Status: Acute (4) Erosive esophagitis: Code(s): K22.10 - Ulcer of esophagus without bleeding Status: Acute Assessment and Plan: Erosive esophagitis identified suggesting underlying acid reflux. Although significant vomiting may also contribute to this. Follow-up EGD plan today because of ongoing history of a hematemesis. GI Consult Note Consult date/time: 12/28/21 10:42 Reason for consult: Hematemesis. HPI: Hanna Rai is a 76 year old female I am asked to see at the request of the emergency room because of coffee-ground emesis last evening. Patient admitted the hospital within the last month was found to have erosive esophagitis. Patient placed on proton pump inhibitor therapy. Follow-up was anticipated subsequently over the next month or 2. Patient did well until vomiting coffee-ground material last evening this prompted admission in the hospital. Modest decline in hemoglobin was noted overnight. Patient is not very concern. At the time of last admission discussion over elective screening colonoscopy was entertained however patient is not agreeable to this at present. Her family history is noncontributory. Patient does have a history of peripheral vascular disease. Apparently followed by vascular surgery elsewhere. Review of Systems Review of Systems: Review of systems noncontributory. [facility] Past Medical History Medical History Acute blood loss anemia Anxiety COPD (chronic obstructive pulmonary disease) Erosive esophagitis GERD (gastroesophageal reflux disease) Hypothyroidism Onychomycosis Osteoporosis Peripheral vascular disease Ulcerative colitis Urge incontinence Surgical History Surgical History History of cholecystectomy History of hysterectomy History of ovarian resection Hx of tonsillectomy Family History Family History Father Skin cancer Father Lung cancer Social History Social History Smoking packs per day: 0.5 Smoking cigarettes per day: 10.0 Years smoked: 12 Smoking pack-years: 6.00 Smoking status: Current every day smoker Tobacco type: cigarettes Second hand tobacco smoke exposure: Yes Alcohol intake: former Substance use: never Substance use type: does not use Spiritual care concerns: No Meds Home Medications and Allergies Home Medications Medication Instructions Recorded Confirmed Type omeprazole 40 mg capsule,delayed 40 mg PO DAILY #90 caps 09/09/20 12/27/21 Rx release levothyroxine 50 mcg tablet 50 mcg PO DAILY 12/03/21 12/27/21 History lorazepam 0.5 mg tablet 0.5 mg PO TID PRN anxiety 12/03/21 12/27/21 History naloxegol 25 mg tablet (Movantik) 25 mg PO DAILY 12/03/21 12/27/21 History simvastatin 40 mg tablet 40 mg PO DAILY 12/03/21 12/03/21 History umeclidinium 62.5 mcg/actuation 62.5 mcg inhalation DAILY 12/03/21 12/27/21 History blister powder for inhalation (Incruse Ellip
[2021-12-28] MEDS: LACTATED RINGERS 1,000 ML 150 ML IV CONT (10:50)
--- NOTE | 2021-12-28 11:37 | PCOTNOTE ---
Attempted OT evaluation, patient is currently off the unit for a procedure, will follow.
--- NOTE | 2021-12-28 11:43 | PCPTNOTE ---
Attempted PT evaluation, patient is currently off the unit for a procedure, will follow.
[2021-12-28 14:11] LABS: Hematocrit 24.1 % (37.0-47.0); Hemoglobin 7.6 g/dL (12.0-15.0)
[2021-12-28 20:05] LABS: Iron 44 ug/dL (37-170)
[2021-12-28 20:16] LABS: Percent Iron Saturation 20 % (20-50)
[2021-12-28] MEDS: PANTOPRAZOLE 40 MG TABLET PO (20:24)
[2021-12-28 21:23] LABS: Hematocrit 22.4 % (37.0-47.0); Hemoglobin 7.2 g/dL (12.0-15.0)
[2021-12-29] VITALS (11 sets, daily range): BP systolic 126–153; BP diastolic 66–83; PULSE 77–82; RESP 16–20; TEMP 36.2–36.8; O2SAT 97–100
[2021-12-29] MEDS: LEVOTHYROXINE SODIUM 50 MCG TABLET PO (05:51)
[2021-12-29 06:17] LABS: Basophils Absolute Auto 0.1 K/mm3 (0.0-0.1); Basophils Percent Auto 1.2 % (0.2-1.2); Eosinophils Absolute Auto 0.1 K/mm3 (0-0.3); Eosinophils Percent Auto 0.8 % (0-4.4); Hematocrit 21.6 % (37.0-47.0); Immature Granulocyte Absolute 0.03 K/mm3 (0.00-0.031); Immature Granulocyte Percent A 0.3 % (0-0.5); Lymphocytes Absolute Auto 2.55 K/mm3 (0.9-3.2); Lymphocytes Percent Auto 29.5 % (18.3-44.2); Mean Corpuscular HGB Conc 31.9 g/dl (32-36); Mean Corpuscular Hemoglobin 32.7 pg (26-34); Mean Corpuscular Volume 102.4 fl (80-100); Monocytes Absolute Auto 0.7 K/mm3 (0.1-0.6); Monocytes Percent Auto 7.6 % (2.6-8.5); Neutrophils Absolute Auto 5.2 K/mm3 (1.3-6.7); Neutrophils Percent Auto 60.6 % (45.5-73.1); Platelet Count Result 435 k/mm3 (150-375); Red Blood Count 2.11 M/mm3 (4.2-5.4); White Blood Count 8.6 K/mm3 (4.5-10.0)
[2021-12-29 06:27] LABS: Hemoglobin 6.9 g/dL (12.0-15.0)
[2021-12-29 06:40] LABS: Albumin Level 2.5 g/dL (3.5-5.1); Alkaline Phosphatase 75 U/L (38-126); Anion Gap 2 mmol/L (8-16); Aspartate Amino Transferase 20 U/L (14-36); Bilirubin,Total 0.1 mg/dL (0.2-1.3); Blood Urea Nitrogen 11 mg/dL (7-17); Calcium 7.9 mg/dL (8.4-10.2); Carbon Dioxide 24 mmol/L (22-30); Chloride 108 mmol/L (98-107); Estimated Glomerular Filt Rate > 60; Glucose 86 mg/dL (65-110); Magnesium 1.9 mg/dL (1.6-2.3); Potassium 2.9 mmol/L (3.4-5.0); Sodium 134 mmol/L (137-145)
[2021-12-29 07:10] LABS: Alanine Aminotransferase < 6 U/L (6-35)
--- NOTE | 2021-12-29 08:30 | PM.IMPN ---
Progress Note: A&P Assessment and Plan (1) Coffee ground emesis: Code(s): K92.0 - Hematemesis Status: Acute Assessment and Plan: Reports of nausea and vomiting with coffee ground emesis GI consulted thank you for your help H/H 9.7/31.7 upon admission, currently 6.9/21.6 Transfuse one unit of PRBC Trend H/H Q6H Anemia labs EGD found esophageal erosion bleeding Protonix added (2) Anemia: Code(s): D64.9 - Anemia, unspecified Status: Acute Assessment and Plan: H/H trending down, currently at 6.9/21.6 Anemia labs iron 44, TIBC 223, % sat 20, Ferritin 91.20, transferrin 163, B12 981, Folate 8.7 Looks to be acute blood loss at this time Supplement as indicated Transfuse if Hgb below 7.0 Transfuse one unit of PRBC Trend H/H Q6H (3) GERD (gastroesophageal reflux disease): Code(s): K21.9 - Gastro-esophageal reflux disease without esophagitis Status: Acute Assessment and Plan: Continue Protonix (4) COPD (chronic obstructive pulmonary disease): Code(s): J44.9 - Chronic obstructive pulmonary disease, unspecified Status: Acute Assessment and Plan: Chronic problem, not in acute exacerbation Continue home Incruse Ellipta Trend respiratory status Is stable at this time (5) Peripheral vascular disease: Code(s): I73.9 - Peripheral vascular disease, unspecified Status: Acute Assessment and Plan: Looks to be stable No notable swelling or discoloration Continue to trend symptoms (6) Tobacco dependence: Code(s): F17.200 - Nicotine dependence, unspecified, uncomplicated Status: Acute Assessment and Plan: Education given Nicotine patch added (7) Hypokalemia: Code(s): E87.6 - Hypokalemia Status: Acute Assessment and Plan: K is 2.9 Replace with 40 PO Recheck labs this afternoon trend labs (8) Peripheral neuropathy: Code(s): G62.9 - Polyneuropathy, unspecified Status: Acute Assessment and Plan: Continue home gabapentin Will increase to 300mg TID due to further complaints of numbness and tingling of the right foot. Continue to trend symptoms Time Spent With Patient Time with patient: Greater than 35 minutes Subjective Date/time seen: 12/29/21829 Interval history: 12/29/21829 Patient was laying in bed with no complaints. She denies any signs or symptoms of bleeding. She also denies any shortness of breath, chest pain, nausea, vomiting, diarrhea, constipation, weakness or fatigue. Patient does appear to be very pallor and was concerned about why she was getting blood. H&H this morning was 6.9/21.6. Patient also states she is very tired due to the fact that she would not get any sleep year. As her other biggest complaint was her right foot does have some numbness tingling was increase her gabapentin 300 mg t.i.d.. 12/28/21? 07:45 Patient is a 76-year-old female who presented to the ED with complaints of nausea vomiting which was accompanied with coffee-ground emesis. Patient stated that she is feeling a little better today it is very tired. She denies any chest pain shortness of breath, nausea, vomiting, abdominal pain, dizziness, headache. GI has been consulted looks like she is going to go for an EGD today. Patient denies any further bleeding at this time. Patient also denies any pain. Review of Systems Review of Systems: All systems reviewed & are unremarkable except as noted in HPI and below Exam Const: General: cooperative, comfortable, no acute distress, well developed, alert, awake, Physically active and tired appearing Nutritional Appearance: average body habitus and well nourished Orientation/consciousness: oriented to person, oriented to place, oriented to time and patient oriented x3 Limitations: no limitations HENMT:
--- NOTE | 2021-12-29 08:30 | P.PNIM_ITS ---
Progress Note: A&P Assessment and Plan (1) Coffee ground emesis: Code(s): K92.0 - Hematemesis Status: Acute Assessment and Plan: * Reports of nausea and vomiting with coffee ground emesis * GI consulted thank you for your help * H/H 9.7/31.7 upon admission, currently 6.9/21.6 * Transfuse one unit of PRBC * Trend H/H Q6H * Anemia labs * EGD found esophageal erosion bleeding * Protonix added (2) Anemia: Code(s): D64.9 - Anemia, unspecified Status: Acute Assessment and Plan: * H/H trending down, currently at 6.9/21.6 * Anemia labs iron 44, TIBC 223, % sat 20, Ferritin 91.20, transferrin 163, B12 981, Folate 8.7 * Looks to be acute blood loss at this time * Supplement as indicated * Transfuse if Hgb below 7.0 * Transfuse one unit of PRBC * Trend H/H Q6H (3) GERD (gastroesophageal reflux disease): Code(s): K21.9 - Gastro-esophageal reflux disease without esophagitis Status: Acute Assessment and Plan: * Continue Protonix (4) COPD (chronic obstructive pulmonary disease): Code(s): J44.9 - Chronic obstructive pulmonary disease, unspecified Status: Acute Assessment and Plan: * Chronic problem, not in acute exacerbation * Continue home Incruse Ellipta * Trend respiratory status * Is stable at this time (5) Peripheral vascular disease: Code(s): I73.9 - Peripheral vascular disease, unspecified Status: Acute Assessment and Plan: * Looks to be stable * No notable swelling or discoloration * Continue to trend symptoms (6) Tobacco dependence: Code(s): F17.200 - Nicotine dependence, unspecified, uncomplicated Status: Acute Assessment and Plan: * Education given * Nicotine patch added (7) Hypokalemia: Code(s): E87.6 - Hypokalemia Status: Acute Assessment and Plan: * K is 2.9 * Replace with 40 PO * Recheck labs this afternoon * trend labs (8) Peripheral neuropathy: Code(s): G62.9 - Polyneuropathy, unspecified Status: Acute Assessment and Plan: * Continue home gabapentin * Will increase to 300mg TID due to further complaints of numbness and tingling of the right foot. * Continue to trend symptoms Time Spent With Patient Time with patient: Greater than 35 minutes Subjective Date/time seen: 12/29/21829 Interval history: 12/29/21829 Patient was laying in bed with no complaints. She denies any signs or symptoms of bleeding. She also denies any shortness of breath, chest pain, nausea, vomiting, diarrhea, constipation, weakness or fatigue. Patient does appear to be very pallor and was concerned about why she was getting blood. H&H this morning was 6.9/21.6. Patient also states she is very tired due to the fact that she would not get any sleep year. As her other biggest complaint was her right foot does have some numbness tingling was increase her gabapentin 300 mg t.i.d.. 12/28/21? 07:45 Patient is a 76-year-old female who presented to the ED with complaints of nausea vomiting which was accompanied with coffee-ground emesis. Patient stated that she is feeling a little better today it is very tired. She denies any chest pain shortness of breath, nausea, vomiting, abdominal pain, dizziness, headache. GI has been consult
[2021-12-29] MEDS: UMECLIDINIUM BROMIDE 62.5 MCG ELLIPTA 1 PUFF INHALATION (08:38)
--- NOTE | 2021-12-29 09:08 | WPDANESPN ---
Anes - Prog Note Post-Op Date/Time: 12/29/21 09:08 Vital Signs: Last Vital Signs Temp 36.8 C 12/29/21 05:50 Pulse 78 12/29/21 08:39 Resp 18 12/29/21 08:39 BP 126/66 12/29/21 05:50 Pulse Ox 99 12/29/21 05:50 O2 Del Method Room Air 12/28/21 20:41 O2 Flow Rate 4 12/28/21 11:34 Pain Score (VAS): 0 I/O: Intake & Output 12/28/21 12/29/21 12/29/21 23:59 07:59 15:59 Intake Total 750 Balance 750 Laboratory Tests 12/29/21 05:40 12/29/21 05:40 12/27/21 12/28/21 12/28/21 16:06 08:27 13:52 WBC RBC Hgb Hct MCV MCH MCHC RDW Plt Count MPV Immature Gran % (Auto) Neut % (Auto) Lymph % (Auto) [place] % (Auto) Eos % (Auto) Baso % (Auto) Lymph # (Auto) [place] # (Auto) Eos # (Auto) Baso # (Auto) Abs Immat Gran (auto) Absolute Neuts (auto) Absolute Nucleated RBC Nucleated RBC % Sodium Potassium Chloride Carbon Dioxide Anion Gap BUN Creatinine Estim Creat Clear Calc Estimated GFR Glucose Calcium Magnesium Iron 44 TIBC 223 L % Saturation 20 Transferrin 163 L Ferritin 91.20 Total Bilirubin AST ALT Alkaline Phosphatase Total Protein Albumin Vitamin B12 981.0 H Folate 8.7 Crossmatch See Detail 12/28/21 12/28/21 12/29/21 13:52 20:52 05:40 WBC 8.6 RBC 2.11 L Hgb 7.6 L 7.2 L 6.9 L* Hct 24.1 L 22.4 L 21.6 L MCV 102.4 H MCH 32.7 MCHC 31.9 L RDW 14.0 Plt Count 435 H MPV 9.0 Immature Gran % (Auto) 0.3 Neut % (Auto) 60.6 Lymph % (Auto) 29.5 [place] % (Auto) 7.6 Eos % (Auto) 0.8 Baso % (Auto) 1.2 Lymph # (Auto) 2.55 [place] # (Auto) 0.7 H Eos # (Auto) 0.1 Baso # (Auto) 0.1 Abs Immat Gran (auto) 0.03 Absolute Neuts (auto) 5.2 Absolute Nucleated RBC 0.0 Nucleated RBC % 0.0 Sodium Potassium Chloride Carbon Dioxide Anion Gap BUN Creatinine Estim Creat Clear Calc Estimated GFR Glucose Calcium Magnesium Iron TIBC % Saturation Transferrin Ferritin Total Bilirubin AST ALT Alkaline Phosphatase Total Protein Albumin Vitamin B12 Folate Crossmatch 12/29/21 05:40 WBC RBC Hgb Hct MCV MCH MCHC RDW Plt Count MPV Immature Gran % (Auto) Neut % (Auto) Lymph % (Auto) [place] % (Auto) Eos % (Auto) Baso % (Auto) Lymph # (Auto) [place] # (Auto) Eos # (Auto) Baso # (Auto) Abs Immat Gran (auto) Absolute Neuts (auto) Absolute Nucleated RBC Nucleated RBC % Sodium 134 L Potassium 2.9 L Chloride 108 H Carbon Dioxide 24 Anion Gap 2 L BUN 11 D Creatinine 0.70 Estim Creat Clear Calc Not Reportable Estimated GFR > 60 Glucose 86 Calcium 7.9 L Magnesium 1.9 Iron TIBC % Saturation Transferrin Ferritin Total Bilirubin 0.1 L AST 20 ALT < 6 L Alkaline Phosphatase 75 Total Protein 5.0 L Albumin 2.5 L Vitamin B12 Folate Crossmatch Patient Feedback: Patient satisfied with anesthetic care.
[2021-12-29] MEDS: PANTOPRAZOLE 40 MG TABLET PO ×2 (09:10→21:34)
[2021-12-29] MEDS: MAGNESIUM OXIDE 400 MG TABLET PO (09:10)
[2021-12-29] MEDS: GABAPENTIN 100 MG CAPSULE 200 MG PO (09:10)
[2021-12-29] MEDS: POTASSIUM CHLORIDE 20 MEQ TABLET 40 MEQ PO (09:13)
[2021-12-29] MEDS: SODIUM CHLORIDE 0.9% IV 250 ML 30 ML IV CONT (10:19)
[2021-12-29] MEDS: TUBING, BLOOD PLUM PUMP TUBING 1 EACH XX (11:00)
--- NOTE | 2021-12-29 12:55 | WPDGIPROGNO ---
Progress Note: A&P Assessment and Plan (1) Erosive esophagitis: Code(s): K22.10 - Ulcer of esophagus without bleeding Status: Acute Assessment and Plan: Patient with esophageal erosions noted by endoscopy. She has similar findings 1 month ago. Currently appears to have an exudates associated with her erosions. Histology of esophageal biopsies pending at this time. Plan to continue PPI therapy. Advance to bland diet as tolerated. (2) Anemia: Code(s): D64.9 - Anemia, unspecified Status: Acute Assessment and Plan: Anemia likely related esophageal erosions. Other factors cannot be excluded. She is macrocytic suggesting additional reasons for her anemia than just from esophageal erosions. (3) Peripheral vascular disease: Code(s): I73.9 - Peripheral vascular disease, unspecified Status: Acute Subjective Date/time seen: 12/29/21 12:55 Patient alert denies any ongoing pain. States she has not very hungry. Anticipate eating more today. Review of Systems Review of Systems: Review of systems noncontributory. Exam Narrative: Physical exam reveals patient be alert comfortable at rest. HEENT exam reveals no icterus. Lungs are clear. Heart without murmur. Abdomen bowel sounds present soft with minimal localized tenderness. Objective Data Vital Signs Vital Signs: Vital Signs - 24 hr 12/28/21 14:10 12/28/21 15:59 12/28/21 20:41 Temperature 98.2 F Pulse Rate 87 94 Respiratory Rate 15 Blood Pressure 115/55 L Pulse Oximetry 100 96 Oxygen Delivery Room Air Room Air 12/28/21 22:00 12/28/21 20:15 12/29/21 05:50 Temperature 98.0 F 98.3 F Pulse Rate 92 92 80 Respiratory Rate 16 16 16 Blood Pressure 97/57 L 126/66 Pulse Oximetry 98 98 99 Oxygen Delivery Room Air 12/29/21 08:39 12/29/21 10:40 12/29/21 10:54 Temperature 97.7 F 97.1 F L Pulse Rate 78 78 78 Respiratory Rate 18 20 20 Blood Pressure 127/69 138/70 Pulse Oximetry 100 97 Oxygen Delivery 12/29/21 10:55 12/29/21 08:00 12/29/21 11:55 Temperature 97.1 F L 97.4 F L Pulse Rate 78 78 77 Respiratory Rate 20 20 18 Blood Pressure 138/70 153/83 H Pulse Oximetry 97 97 100 Oxygen Delivery Room Air Intake/Output Intake/Output: Intake & Output 12/26/21 12/27/21 12/28/21 12/29/21 23:59 23:59 23:59 23:59 Intake Total 1000 1000 750 Balance 1000 1000 750 Meds/Results Medications: Active Medications Generic Name Dose Route Start Last Admin Trade Name Freq PRN Reason Stop Dose Admin Gabapentin 300 mg 12/29/21 14:00 Gabapentin 300 Mg Capsule PO Q8HR NEPTALI Sodium Chloride 1,000 mls @ 80 mls/hr 12/27/21 17:05 12/29/21 10:20 Normal Saline Iv IV CONT Not Given .[id number] NEPTALI Sodium Chloride 250 mls @ 30 mls/hr 12/29/21 07:28 12/29/21 10:19 Normal Saline Iv IV CONT 12/29/21 15:47 30 mls/hr .[id number] STA Administration Levothyroxine Sodium 50 mcg 12/28/21 06:30 12/29/21 05:51 Levothyroxine Sodium 50 Mcg Tablet PO 50 mcg DAILY@0630 NEPTALI Administration Lorazepam 0.25 - 0.5 mg 12/28/21 01:13 Lorazepam (*Crx) 0.5 Mg Tablet PO TID PRN anxiety Magnesium Oxide 400 mg 12/28/21 09:00 12/29/21 09:10 Magnesium Oxide 400 Mg Tablet PO 400 mg QAM NEPTALI Administration Ondansetron HCl 4 mg 12/27/21 17:02 Ondansetron Inj 4 Mg/2 Ml Vial IV PUSH Q4H PRN Nausea Oxycodone/Acetaminophen 1 tablet 12/28/21 01:13 Oxycodone/Acetaminophen (*Crx) 5-325 Mg Tablet PO TID PRN Pain Rated 4-6 Pantoprazole Sodium 40 mg 12/28/21 21:00 12/29/21 09:10 Pantoprazole 40 Mg Tablet PO 40 mg Q12HR NEPTALI Administration Umeclidinium [place] 1 puff 12/28/21 08:00 12/29/21 08:38 Umeclidinium [place] 62.5 Mcg Ellipta INHALATION 1 puff DAILYRT NEPTALI Administration Radiology Results: ITS Impressions Abdomen/Pelvis CT 12/27/21 16:37 IMPRESSION: 1. 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
[2021-12-29] MEDS: GABAPENTIN 300 MG CAPSULE PO ×2 (14:05→21:34)
--- NOTE | 2021-12-29 14:09 | PCPTNOTE ---
Patient refused treatment this session, patient did not really give reason why other than her back was hurting and she doesn't want to do therapy right now. Educated patient on benefits of therapy and patient continued to refuse. RN aware.
[2021-12-29 18:55] LABS: Basophils Absolute Auto 0.1 K/mm3 (0.0-0.1); Eosinophils Percent Auto 0.4 % (0-4.4); Hematocrit 34.9 % (37.0-47.0); Hemoglobin 11.2 g/dL (12.0-15.0); Immature Granulocyte Absolute 0.06 K/mm3 (0.00-0.031); Immature Granulocyte Percent A 0.5 % (0-0.5); Lymphocytes Absolute Auto 2.59 K/mm3 (0.9-3.2); Lymphocytes Percent Auto 23.4 % (18.3-44.2); Mean Corpuscular HGB Conc 32.1 g/dl (32-36); Mean Corpuscular Hemoglobin 31.5 pg (26-34); Mean Corpuscular Volume 98.3 fl (80-100); Mean Platelet Volume 8.9 fl (7.4-10.4); Monocytes Absolute Auto 0.8 K/mm3 (0.1-0.6); Monocytes Percent Auto 6.8 % (2.6-8.5); Neutrophils Absolute Auto 7.5 K/mm3 (1.3-6.7); Neutrophils Percent Auto 67.9 % (45.5-73.1); Platelet Count Result 438 k/mm3 (150-375); Red Blood Count 3.55 M/mm3 (4.2-5.4); Red Cell Distribution Width 17.3 % (11.5-14.5); White Blood Count 11.1 K/mm3 (4.5-10.0)
[2021-12-29 19:04] LABS: Alanine Aminotransferase 10 U/L (6-35); Albumin Level 3.3 g/dL (3.5-5.1); Alkaline Phosphatase 96 U/L (38-126); Anion Gap 8 mmol/L (8-16); Aspartate Amino Transferase 27 U/L (14-36); Bilirubin,Total 0.8 mg/dL (0.2-1.3); Blood Urea Nitrogen 7 mg/dL (7-17); Calcium 8.7 mg/dL (8.4-10.2); Carbon Dioxide 23 mmol/L (22-30); Chloride 103 mmol/L (98-107); Estimated Glomerular Filt Rate > 60; Glucose 135 mg/dL (65-110); Potassium 3.3 mmol/L (3.4-5.0); Sodium 134 mmol/L (137-145)
--- NOTE | 2021-12-29 22:42 | PCCCNOTE ---
On 12/29/21, the student, Lauren Webster, provided care and completed [facility] documentation on this patient. I have reviewed the student's documentation and agree with the findings.
[2021-12-30 05:46] VITALS: BP 133/74; PULSE 81; RESP 16; TEMP 36.3; O2SAT 95
[2021-12-30] MEDS: LEVOTHYROXINE SODIUM 50 MCG TABLET PO (05:57)
[2021-12-30] MEDS: GABAPENTIN 300 MG CAPSULE PO (05:57)
[2021-12-30 06:13] LABS: Basophils Absolute Auto 0.1 K/mm3 (0.0-0.1); Basophils Percent Auto 1.3 % (0.2-1.2); Eosinophils Absolute Auto 0.1 K/mm3 (0-0.3); Eosinophils Percent Auto 1.5 % (0-4.4); Hematocrit 31.2 % (37.0-47.0); Hemoglobin 10.5 g/dL (12.0-15.0); Immature Granulocyte Absolute 0.03 K/mm3 (0.00-0.031); Immature Granulocyte Percent A 0.3 % (0-0.5); Lymphocytes Percent Auto 33.7 % (18.3-44.2); Mean Corpuscular HGB Conc 33.7 g/dl (32-36); Mean Corpuscular Hemoglobin 31.9 pg (26-34); Mean Corpuscular Volume 94.8 fl (80-100); Monocytes Absolute Auto 0.8 K/mm3 (0.1-0.6); Monocytes Percent Auto 9.4 % (2.6-8.5); Neutrophils Absolute Auto 4.8 K/mm3 (1.3-6.7); Neutrophils Percent Auto 53.8 % (45.5-73.1); Platelet Count Result 448 k/mm3 (150-375); Red Blood Count 3.29 M/mm3 (4.2-5.4); White Blood Count 8.9 K/mm3 (4.5-10.0)
[2021-12-30 06:26] LABS: Alanine Aminotransferase 7 U/L (6-35); Albumin Level 3.1 g/dL (3.5-5.1); Alkaline Phosphatase 93 U/L (38-126); Anion Gap 3 mmol/L (8-16); Aspartate Amino Transferase 24 U/L (14-36); Bilirubin,Total 0.5 mg/dL (0.2-1.3); Blood Urea Nitrogen 7 mg/dL (7-17); Calcium 8.6 mg/dL (8.4-10.2); Carbon Dioxide 24 mmol/L (22-30); Chloride 106 mmol/L (98-107); Estimated Glomerular Filt Rate > 60; Glucose 84 mg/dL (65-110); Magnesium 1.8 mg/dL (1.6-2.3); Potassium 3.1 mmol/L (3.4-5.0); Sodium 133 mmol/L (137-145)
--- NOTE | 2021-12-30 08:11 | PCPTNOTE ---
Attempted to see patient for Physical Therapy treatment; patient refused at this time.
--- NOTE | 2021-12-30 08:30 | P.DS_ITS ---
DS: Admitting Diagnosis Discharge Date 12/30/2130 Admitting Diagnosis Erosive Esophagitis DS: Discharge Diagnosis Discharge Diagnosis (1) Erosive esophagitis: Code(s): K22.10 - Ulcer of esophagus without bleeding Status: Acute Assessment and Plan: * Reports of nausea and vomiting with coffee ground emesis * GI consulted thank you for your help * H/H 9.7/31.7 upon admission, currently 10.5/31.2 * Transfused two units of PRBC 12/29/21 * Anemia labs * EGD found esophageal erosion bleeding * Protonix added (2) Anemia: Code(s): D64.9 - Anemia, unspecified Status: Acute Assessment and Plan: * H/H trending down, currently at 10.5/31.2 * Anemia labs iron 44, TIBC 223, % sat 20, Ferritin 91.20, transferrin 163, B12 981, Folate 8.7 * Looks to be acute blood loss at this time * Supplement as indicated * Transfuse if Hgb below 7.0 * Transfused two unit of PRBC (3) GERD (gastroesophageal reflux disease): Code(s): K21.9 - Gastro-esophageal reflux disease without esophagitis Status: Acute Assessment and Plan: * Continue Protonix (4) COPD (chronic obstructive pulmonary disease): Code(s): J44.9 - Chronic obstructive pulmonary disease, unspecified Status: Acute Assessment and Plan: * Chronic problem, not in acute exacerbation * Continue home Incruse Ellipta * Trend respiratory status * Is stable at this time (5) Peripheral vascular disease: Code(s): I73.9 - Peripheral vascular disease, unspecified Status: Acute Assessment and Plan: * Looks to be stable * No notable swelling or discoloration * Continue to trend symptoms (6) Tobacco dependence: Code(s): F17.200 - Nicotine dependence, unspecified, uncomplicated Status: Acute Assessment and Plan: * Education given * Nicotine patch added (7) Hypokalemia: Code(s): E87.6 - Hypokalemia Status: Acute Assessment and Plan: * K is 3.1 * Replace with 40 PO again * trend labs (8) Peripheral neuropathy: Code(s): G62.9 - Polyneuropathy, unspecified Status: Acute Assessment and Plan: * Continue home gabapentin * Will increase to 300mg TID due to further complaints of numbness and tingling of the right foot. * Continue to trend symptoms DS: Summary Hospital Course Hospital Course: Patient is a 76-year-old female with a past medical history of COPD, hyper lipidemia, PVD who presented to the ED with nausea and vomiting and coffee- ground emesis. Hemoglobin hematocrit were noted to be 9.7/31.7 upon admission however did go down to 6.9/21.6. Patient was given 2 units packed red blood cells and GI was consulted. Patient was taken for an EGD which found erosive esophagitis which has been resolved. H&H is currently 10.5/31.2. Anemia studies were performed and did not show any deficiency. Patient currently takes gabapentin home which has been increased due to excessive numbness and tingling of the right foot, which she claims has been effective. Patient denies any complaints including chest pain, shortness a breath, nausea, vomiting, diarrhea, constipation, weakness or fatigue. CT of the abdomen did show 3.1 cm fusiform aneurysm. Will have patient follow-up with vascular surgeon outpatient. Patient is stable at this time for discharge including vital signs and
--- NOTE | 2021-12-30 08:30 | PM.DS ---
DS: Admitting Diagnosis Discharge Date 12/30/21829 Admitting Diagnosis Erosive Esophagitis DS: Discharge Diagnosis Discharge Diagnosis (1) Erosive esophagitis: Code(s): K22.10 - Ulcer of esophagus without bleeding Status: Acute Assessment and Plan: Reports of nausea and vomiting with coffee ground emesis GI consulted thank you for your help H/H 9.7/31.7 upon admission, currently 10.5/31.2 Transfused two units of PRBC 12/29/21 Anemia labs EGD found esophageal erosion bleeding Protonix added (2) Anemia: Code(s): D64.9 - Anemia, unspecified Status: Acute Assessment and Plan: H/H trending down, currently at 10.5/31.2 Anemia labs iron 44, TIBC 223, % sat 20, Ferritin 91.20, transferrin 163, B12 981, Folate 8.7 Looks to be acute blood loss at this time Supplement as indicated Transfuse if Hgb below 7.0 Transfused two unit of PRBC (3) GERD (gastroesophageal reflux disease): Code(s): K21.9 - Gastro-esophageal reflux disease without esophagitis Status: Acute Assessment and Plan: Continue Protonix (4) COPD (chronic obstructive pulmonary disease): Code(s): J44.9 - Chronic obstructive pulmonary disease, unspecified Status: Acute Assessment and Plan: Chronic problem, not in acute exacerbation Continue home Incruse Ellipta Trend respiratory status Is stable at this time (5) Peripheral vascular disease: Code(s): I73.9 - Peripheral vascular disease, unspecified Status: Acute Assessment and Plan: Looks to be stable No notable swelling or discoloration Continue to trend symptoms (6) Tobacco dependence: Code(s): F17.200 - Nicotine dependence, unspecified, uncomplicated Status: Acute Assessment and Plan: Education given Nicotine patch added (7) Hypokalemia: Code(s): E87.6 - Hypokalemia Status: Acute Assessment and Plan: K is 3.1 Replace with 40 PO again trend labs (8) Peripheral neuropathy: Code(s): G62.9 - Polyneuropathy, unspecified Status: Acute Assessment and Plan: Continue home gabapentin Will increase to 300mg TID due to further complaints of numbness and tingling of the right foot. Continue to trend symptoms DS: Summary Hospital Course Hospital Course: Patient is a 76-year-old female with a past medical history of COPD, hyper lipidemia, PVD who presented to the ED with nausea and vomiting and coffee-ground emesis. Hemoglobin hematocrit were noted to be 9.7/31.7 upon admission however did go down to 6.9/21.6. Patient was given 2 units packed red blood cells and GI was consulted. Patient was taken for an EGD which found erosive esophagitis which has been resolved. H&H is currently 10.5/31.2. Anemia studies were performed and did not show any deficiency. Patient currently takes gabapentin home which has been increased due to excessive numbness and tingling of the right foot, which she claims has been effective. Patient denies any complaints including chest pain, shortness a breath, nausea, vomiting, diarrhea, constipation, weakness or fatigue. CT of the abdomen did show 3.1 cm fusiform aneurysm. Will have patient follow-up with vascular surgeon outpatient. Patient is stable at this time for discharge including vital signs and labs. Patient will be going home and will have home health. Time spent discussing smoking cessation with patient: more than 10 minutes Status at Discharge Functional status at discharge: independent ambulation Overall status at discharge: patient is progressing back to baseline Time Spent with Patient Time attestation: Total time spent providing and/or coordinating discharge services: 36 minutes Time spent: Greater than 30 minutes Specific discharge activities: Diagnostic testing, chart review, developing a treatment plan, education,
[2021-12-30] MEDS: PANTOPRAZOLE 40 MG TABLET PO (09:29)
[2021-12-30] MEDS: MAGNESIUM OXIDE 400 MG TABLET PO (09:29)
[2021-12-30] MEDS: POTASSIUM CHLORIDE 20 MEQ TABLET 40 MEQ PO (09:32)
[2021-12-30] MEDS: UMECLIDINIUM BROMIDE 62.5 MCG ELLIPTA 1 PUFF INHALATION (09:41)
[2021-12-30 09:42] VITALS: PULSE 72; RESP 20
[2021-12-30 09:43] VITALS: PULSE 79; O2SAT 96
== END 2021-12-30 12:30 | disposition home or self-care (01) | DRG 381 ==
LOC: ANHED 15:45 → ANH3MEDSUR 19:33
PROVIDERS: Internal Medicine Gastroenterology; Admitting Provider Internal Medicine; Emergency Provider Emergency Medicine; PCP Family Medicine; Visit Provider Nurse Practitioner
PROC: 0DJ08ZZ Inspection of Upper Intestinal Tract, Via Natural or Artificial Opening Endoscopic (ICD-10-PCS; CPT 43235; principal; 2021-12-28 11:15)
DX: K22.11 Ulcer of esophagus with bleeding (principal); D62 Acute posthemorrhagic anemia; Z20.822 Contact with and (suspected) exposure to COVID-19; F17.210 Nicotine dependence, cigarettes, uncomplicated; K21.9 Gastro-esophageal reflux disease without esophagitis; J43.9 Emphysema, unspecified; M81.0 Age-related osteoporosis without current pathological fracture; I73.9 Peripheral vascular disease, unspecified; F41.9 Anxiety disorder, unspecified; E03.9 Hypothyroidism, unspecified; E87.6 Hypokalemia; Z80.1 Family history of malignant neoplasm of trachea, bronchus and lung; Z79.899 Other long term (current) drug therapy; Z79.891 Long term (current) use of opiate analgesic; E78.5 Hyperlipidemia, unspecified
CPT/HCPCS: 36415; 36430; 74176; 80053; 82607; 82728; 82746; 83540; 83550; 83605; 83690; 83735; 84466; 85014; 85018; 85025; 85610; 85730; 86850; 86900; 86901; 86920; 88305; 93005; 94640; 96361; 96374; 96376; 97161; 97165; 97535; 99285; A9270; C9113; C9803; G0378; J2704; J7030; J7050; J7120; P9016; U0003; U0005